=== PATIENT | female | born 1935 | race Caucasian/White ===

== ENCOUNTER → 2017-09-22 18:33 | Outpatient (REF) | payer MEDICARE, OTHER, SELFPAY | LOC: LAB 18:33 | PROVIDERS: PCP Internal Medicine; Visit Provider Specialist | DX: Z22.322 Carrier or suspected carrier of Methicillin resistant Staphylococcus aureus (principal); Z53.9 Procedure and treatment not carried out, unspecified reason ==

== ENCOUNTER → 2017-10-16 13:34 | Outpatient (CLI) | payer MEDICARE, OTHER, SELFPAY | PROVIDERS: PCP Internal Medicine; Visit Provider Internal Medicine | DX: M85.852 Other specified disorders of bone density and structure, left thigh (principal); Z78.0 Asymptomatic menopausal state; E07.9 Disorder of thyroid, unspecified; R29.890 Loss of height | CPT/HCPCS: 77080 ==

== ENCOUNTER 2017-10-30 18:01 | Inpatient (IN) | payer MEDICARE, OTHER, SELFPAY ==
[2017-10-30] VITALS (26 sets, daily range): BP systolic 71–105; BP diastolic 34–76; PULSE 90–105; RESP 11–26; TEMP 36.4–37.2; O2SAT 94–100; BMI 22.9
--- NOTE | 2017-10-30 18:33 | DI.RAD.S_ITS ---
PROCEDURE: XR CHEST 1V INDICATIONS: suspected sepsis TECHNIQUE: One view of the chest was acquired. COMPARISON: None. FINDINGS: Surgical changes and devices: None. Lungs and pleura: No pleural effusions or pneumothorax. Lungs are clear. Mediastinum: Mediastinal contours appear normal except for a small to moderate size hiatal hernia appears to be present behind the heart. Heart size is normal. Bones and chest wall: No suspicious bony lesions. Overlying soft tissues appear unremarkable. IMPRESSION: Small to moderate hiatal hernia behind the heart. Dictated by: Christian Schuler M.D. on 10/30/2017 at 19:07 Approved by: Christian Schuler M.D. on 10/30/2017 at 19:08
[2017-10-30] MEDS: SODIUM CHLORIDE 0.9% 1,000 ML 1000 ML IV (18:34)
--- NOTE | 2017-10-30 18:37 | DI.CT.S_ITS ---
PROCEDURE: CT ABDOMEN PELVIS W CON INDICATIONS: fever with a suspect intraabdominal source TECHNIQUE: After the administration of oral and intravenous contrast, 5 mm thick sections acquired from the diaphragms to the symphysis. 5 mm thick coronal and sagittal reformats were performed. For radiation dose reduction, the following was used: automated exposure control, adjustment of mA and/or kV according to patient size. COMPARISON: [facility], CT, ABDOMEN/PELVIS WITH CONTRAST, 04/09/2017, 17:11. FINDINGS: Image quality: Excellent. ABDOMEN: Lung bases: Lung bases are clear. Heart size is normal. Solid organs: Liver is normal in size and enhancement. Gallbladder extends anteriorly, in the subhepatic space, previously the case. Biliary system is non-dilated. Pancreas enhances normally. Spleen is normal in size and enhancement. No adrenal nodules. Kidneys are normal in size and enhancement, without hydronephrosis. Peritoneum and bowel: Stomach appears to have undergone some form of esophagogastric region operative procedure, and fluid and presumed food material within the gastric lumen disallows accurate assessment of much of the gastric wall. No adjacent free fluid is found, however. The small bowel, and colon loops are normal in caliber and wall thickness. No free fluid or air. Nodes and vessels: No retroperitoneal or mesenteric adenopathy. Aorta and inferior vena cava are normal in caliber. Miscellaneous: No ventral hernias. PELVIS: Genitourinary: Bladder wall thickness is normal. Miscellaneous: No inguinal hernias or adenopathy. Bones: No suspicious bony lesions. No vertebral body compression fractures. IMPRESSION: No source of dizziness, nausea and vomiting is seen. Apparent prior esophagogastric junction region surgical intervention. Fluid and food material present within the gastric lumen disallows accurate visualization of portions of the gastric wall. No adjacent free fluid is seen, however. Throughout the remainder of the abdomen and pelvis no suspicious abnormality is found that would suggest source of current symptomatology. Dictated by: Christian Schuler M.D. on 10/30/2017 at 19:30 Approved by: Christian Schuler M.D. on 10/30/2017 at 19:34
--- NOTE | 2017-10-30 18:41 | DI.CT.S_ITS ---
PROCEDURE: CT HEAD/BRAIN WO CON INDICATIONS: DIZZY/HEADACHE TECHNIQUE: Noncontrast 4.5 mm thick angled axial sections acquired from the foramen magnum to the vertex, with coronal and sagittal reformats. For radiation dose reduction, the following was used: automated exposure control, adjustment of mA and/or kV according to patient size. COMPARISON: None. FINDINGS: Image quality: Excellent. CSF spaces: Basal cisterns are patent. No extra-axial fluid collections. The ventricles are symmetric in size and shape. Brain: No intracranial bleeds or masses. There is cerebral volume loss for age, with resultant ventricular and sulcal prominence. There are periventricular and deep white matter chronic small vessel ischemic changes. There is intracranial internal carotid artery atherosclerosis. Skull and face: Calvarium and visualized facial bones appear intact, without suspicious lesions. Sinuses: Visualized sinuses and mastoids are clear. IMPRESSION: No trauma found, source of current headache and vertigo is not seen. Dictated by: Christian Schuler M.D. on 10/30/2017 at 19:28 Approved by: Christian Schuler M.D. on 10/30/2017 at 19:29
[2017-10-30 18:43] LABS: Basophils Percent Auto 0.6 % (0-2); Eosinophils Percent Auto 1.3 % (2-4); Lymphocytes Percent Auto 15.8 % (25-40); Mean Corpuscular HGB Conc 32.9 % (30-36); Mean Corpuscular Hemoglobin 29.5 PG (26-34); Mean Corpuscular Volume 89.8 fL (80-100); Monocytes Percent Auto 5.8 % (3-14); Neutrophils Absolute Auto 10600 /uL (3000-5900); Neutrophils Percent Auto 76.5 % (50-75); Platelet Count 218 X10^3/uL (150-400); Red Blood Cell Count 2.27 X10^6/uL (4.0-5.2); Red Cell Distribution Width 18.6 % (11.6-14.8); White Blood Cell Count 13.9 X10^3/uL (4.5-11.0)
[2017-10-30 18:46] LABS: Add Manual Diff / Slide Review SLIDE REVIEW; Hematocrit 20.4 % (36-46); Hemoglobin 6.7 g/dL (12.0-16.0)
[2017-10-30 18:51] LABS: INR 1.2 (0.9-1.3); Prothrombin Time 12.5 SECONDS (10.1-12.7)
[2017-10-30 18:54] LABS: PTT Partial Thromboplastin Tim 21 SECONDS (26.4-36.2)
[2017-10-30 18:59] LABS: Lactate (Lactic Acid) 4.5 mmol/L (0.7-2.1)
[2017-10-30 19:10] LABS: Alanine Aminotransferase 29 IU/L (9-52); Albumin 3.3 g/dL (3.5-5.0); Albumin Globulin Ratio 1.2 (1.0-2.8); Alkaline Phosphatase 45 U/L (38-126); Aspartate Aminotransferase 29 IU/L (14-36); Bilirubin Total 0.2 mg/dL (0.2-1.3); Blood Urea Nitrogen 39 mg/dL (7-17); Calcium 8.4 mg/dL (8.4-10.2); Carbon Dioxide 25 mmol/L (22-32); Chloride 99 mmol/L (98-107); Estimated Glomerular Filt Rate > 60.0 mL/min (>60); Globulin 2.7 g/dL (1.7-4.1); Glucose 160 mg/dL (80-110); HEMOLYSIS 25 (0-50); Lipase 101 U/L (23-300); Potassium 3.5 mmol/L (3.4-5.1); Sodium 139 mmol/L (137-145)
[2017-10-30 19:17] LABS: Anisocytosis 1+
[2017-10-30 19:19] LABS: Procalcitonin < 0.05 ng/mL (<0.5)
[2017-10-30 19:22] LABS: Magnesium 1.9 mg/dL (1.6-2.3)
[2017-10-30] MEDS: SODIUM CHLORIDE 0.9% 1,000 ML 150 ML IV (19:26)
[2017-10-30] MEDS: CEFEPIME 2 GM in SODIUM CHLORIDE 0.9% 100 ML 200 ML IV (19:27)
[2017-10-30 19:32] LABS: B Type Natriuretic Peptide < 100.0 (<100)
[2017-10-30 19:37] LABS: Troponin I < 0.012 ng/mL (0.01-0.034)
[2017-10-30 19:49] LABS: Bacteria Urine None Seen
[2017-10-30 19:57] LABS: Appearance Urine UA CLEAR; Bilirubin Urine UA NEGATIVE (NEGATIVE); Color Urine UA YELLOW; Glucose Urine UA NEGATIVE (Normal); Ketones Urine UA NEGATIVE (NEGATIVE); Leukocyte Esterase Urine UA NEGATIVE (NEGATIVE); Nitrite Urine UA Negative (Negative); Occult Blood Urine UA NEGATIVE (Negative); Protein Urine UA NEGATIVE (Negative); Urobilinogen Urine UA 0.2 E.U./dL (0.2); pH Urine UA 6.5 (4.5-8.0)
[2017-10-30] MEDS: VANCOMYCIN 750 MG/150 ML FROZ.PIGGY 150 MG IV (20:02)
[2017-10-30 20:03] LABS: Creatinine Urine Random 61.4 mg/dL; Protein (Total) Urine Random 6 mg/dL (0-12); Protein Creatinine Ratio Urine 0.09 GRAM/24H
[2017-10-30 20:15] LABS: Culture Indicated Urine Cult Not Indicated; Hyaline Casts Urine 1-5/LPF; Mucus Urine 1+ (Negative); RBC Urine 0-1/HPF (0-5/HPF); WBC Urine 1-5/HPF (0-5/HPF)
--- NOTE | 2017-10-30 20:47 | ED_ITS ---
HPI - Dizziness General Chief Complaint: Dizziness Stated Complaint: THROWING UP DIZZY FALL History of Present Illness HPI Narrative: HPI 82-year-old female presents complaining of weakness, malaise, nausea, vomiting of several days' duration. Recent history is notable for a colostomy takedown on 08/24/[address] Austin. Patient had a colostomy in the setting of repair for bleeding diverticulitis. Patient denies cough, cold, fevers, chills, chest pain , shortness breath, dysuria, urinary frequency, headache, neck stiffness, rash. M/S/F/SocHx notable for: please see HPI; remainder reviewed with patient and in chart. ROS: Negative constitutional, eye, cardiovascular, pulmonary, GI, , MSK, skin , neurologic, psychiatric, endocrine unless noted in the HPI. Exam Gen: pleasant, unwell appearing, pale. HEENT: NC, AT, PEERL, EOMI, neck supple, no goiter appreciated. Resp: Clear to auscultation bilaterally, normal work of breathing, no accessory muscle usage. Card: Regular rate and rhythm with no murmurs, rubs, or gallops, extremities warm and well perfused. GI: no focal tenderness palpation, no rebound, no guarding. FOBT positive. : No suprapubic tenderness to palpation. MSK: No visible deformities, strength and tone without visually appreciable deficit. Skin: Normal color, no petechiae, no further visible lesions. Neuro: AOx3, no facial asymmetry, vision and hearing WNL. Psych: Mood and affect appropriate. Labs / Imaging (pertinent): WBC 13.9, Hb 6.7 (baseline 9.9-11.8), PLT 218, PT/INR 1.2, Na 139, K 3.5, Bilirubin 0.2, AST 29, ALT 29, ALT 45, lipase 101, BUN 39, CR 0.6 (BUN/CR 65.0) , Lactate 4.5, troponin <0.012. UA: negative nitrate, negative leukocyte esterase, no bacteria seen. CT head: no acute intracranial abnormality. CT abdomen/pelvis: no source of dizziness, nausea, and vomiting is seen. Apparent prior esophagogastric junction region surgical intervention. Fluid and food material present within the gastric lumen disallows accurate visualization of portions of the gastric wall. No adjacent free fluid seen, however. Throughout the remainder the abdomen pelvis no suspicious abnormalities found that would suggest source of current symptomatology. CXR: small to moderate hiatal hernia behind the heart. EKG: SR at [address]-segment elevations or depressions, T-wave inversions or new LBBB. MDM Previous chart, nursing note, labs, imaging, and vitals reviewed. A: 82-year-old female presents hypotensive, tachycardic, with new anemia, and dark tarry stools with a complaint of N/V/D of several days' duration in the setting of ostomy takedown 08/24/17 there was placed for prior bleeding diverticuliti. Evaluation: concern exists for sepsis versus GI bleed. Upon discovery of anemia , type and screen was performed and the patient was transfused one unit PRBCs. FOBT positive. Suspect a GI source given the dark tarry stools, the apparent esophagogastric junction region surgical intervention noted on imaging and a BUN :Cr of 65.0. Patient was also given IV fluid resuscitation, vancomycin, and cefepime. UA without evidence infection, chest x-ray without evidence of infection. No further focal abnormalities appreciated on exam. CT head was obtained inadvertently, order was placed on long patient, this was canceled prior to imaging, however absence of a active order was not verified by radiology and the patient was imaged, results reviewed, no acute abnormalities. Discussed case with the general surgeon production planner scheduler, Dr. Eric, recommended admission to medicine. Disposition: admitted for further care. Further transfusions as needed deferred to the accepting hospitalist, Dr. Lilly. Impression: suspected upper GI bleed. (please reference below for remainder of encounter information) Critical Care Time Organ system(s): Cardiopulmonary, vascular, QUALITY TECHNICIAN, Renal Intervention: Assessment of the patient, interpretation of studies, communication related to patient care. Time: 30 minutes were spent directly related to patient care exclusive of separately billed procedures Related Data Home Medications Medication Instructions Recorded Confirmed latanoprost 1 drp OPHTH HS #0 12/30/16 08/29/17 escitalopram oxalate 20 mg PO HS #0 08/08/17 08/29/17 sennosides [senna] 8.6 mg PO QDAY #0 08/08/17 08/29/17 lorazepam [Ativan] 1 mg PO BIDP PRN 08/29/17 08/29/17 Previous Rx's Medication Instructions Recorded gabapentin 200 mg PO BID #10 cap 08/29/17 hydrocodone-acetaminophen 1 - 2 tab PO Q6HP PRN #14 tab MDD 6 08/29/17 levothyroxine [Synthroid] 50 mcg PO DAILY #30 tab 08/29/17 walker #1 each 08/29/17 Allergies Allergy/AdvReac Type Severity Reaction Status Date / Time penicillin V [PENICILLIN V] Allergy Severe rash Verified 10/30/17 18:34 latex [LATEX] Allergy Mild rash Verified 10/30/17 18:34 [facility] Medical History Hypothyroidism (Acute) Glaucoma (Acute) Surgical History Colostomy status (Acute) Exam Initial Vital Signs Initial Vital Signs: Vital Signs Temperature 97.5 F L 10/30/17 18:06 Pulse Rate 105 H 10/30/17 18:06 Respiratory Rate 22 10/30/17 18:06 Pulse Oximetry 100 10/30/17 18:06 Course Orders Ordered: ED Orders 10/30/17 18:25 B Type Natriuretic Peptide Stat Complete Blood Count AUTO DIFF Stat Comprehensive Metabolic Panel Stat Free T4 Free Thyroxine Stat Lactate (Lactic Acid) Stat Lipase Stat Magnesium Stat Partial Thromboplastin Time Stat Procalcitonin Stat Prothrombin Time INR Stat Thyroid Stimulating Hormone Stat Troponin I Stat 10/30/17 18:33 XR chest 1V Stat 10/30/17 18:37 CT abdomen pelvis w con Stat 10/30/17 18:41 CT head/brain wo con Stat 10/30/17 18:55 Blood Culture Stat Packed Cells Stat Type and Screen Stat 10/30/17 19:35 Urinalysis and Microscopic Stat 10/30/17 19:50 Protein Creatinine Ratio Urine Stat 10/30/17 20:43 Consult to General Surgery Routine Consult to Physician Routine Sodium Chloride (Normal Saline 0.9%) 1,000 mls @ 125 mls/hr IV CONT SYDNEE Discontinued Medications Sodium Chloride (Normal Saline 0.9%) 1,000 mls @ 1,000 mls/hr IV BOLUS ONE Stop: 10/30/17 19:31 Last Infusion: 10/30/17 19:58 Dose: 0 mls/hr Admin: 10/30/17 18:34 Dose: 1,000 mls/hr Cefepime HCl 2 gm/ Sodium (Chloride) 100 mls @ 200 mls/hr IV NOW ONE Stop: 10/30/17 18:38 Last Infusion: 10/30/17 20:01 Dose: 0 mls/hr Admin: 10/30/17 19:27 Dose: 200 mls/hr Sodium Chloride (Normal Saline 0.9%) 1,000 mls @ 1,000 mls/hr IV BOLUS ONE Stop: 10/30/17 19:36 Last Admin: 10/30/17 19:26 Dose: 150 mls/hr Vancomycin HCl/Dextrose (Vancomycin) 750 mg in 150 mls @ 150 mls/hr 15 mg/kg ( 750 mg) IV NOW ONE Stop: 10/30/17 19:36 Last Admin: 10/30/17 20:02 Dose: 150 mls/hr Magnesium Sulfate (Magnesium Sulfate) 2 gm in 50 mls @ 50 mls/hr IV NOW ONE Stop: 10/30/17 19:40 Last Admin: 10/30/17 19:24 Dose: Magnesium Sulfate (Magnesium Sulfate) 4 gm in 100 mls @ 300 mls/hr IV NOW ONE Stop: 10/30/17 19:08 Last Admin: 10/30/17 19:24 Dose: Magnesium Sulfate (Magnesium Sulfate) 2 gm in 50 mls @ 150 mls/hr IV NOW ONE Stop: 10/30/17 19:10 Last Admin: 10/30/17 19:24 Dose: Ketorolac Tromethamine (Toradol) 15 mg IV NOW ONE Stop: 10/30/17 18:38 Last Admin: 10/30/17 19:42 Dose: Labetalol HCl (Trandate) 10 mg IV NOW ONE Stop: 10/30/17 18:47 Last Admin: 10/30/17 19:24 Dose: Vital Signs - 8 hr 10/30/17 18:06 10/30/17 18:15 10/30/17 18:25 Temperature 97.5 F L Pulse Rate 105 H 103 H 97 H Respiratory Rate 22 20 26 H Blood Pressure [Right Arm] 88/76 L 86/36 L Pulse Oximetry 100 100 94 10/30/17 18:30 10/30/17 18:35 10/30/17 18:40 Temperature Pulse Rate 93 H 91 H 104 H Respiratory Rate 22 21 22 Blood Pressure [Right Arm] 100/34 L 71/36 L Pulse Oximetry 100 99 99 10/30/17 18:43 10/30/17 18:50 10/30/17 18:55 Temperature 97.5 F L Pulse Rate 105 H 100 H 90 Respiratory Rate 22 22 18 Blood Pressure [Right Arm] 80/41 L 86/47 L Pulse Oximetry 100 100 100 10/30/17 19:10 10/30/17 19:31 10/30/17 19:45 Temperature Pulse Rate 94 H 94 H 104 H Respiratory Rate 22 22 22 Blood Pressure [Right Arm] 92/57 L 93/41 L 87/42 L Pulse Oximetry 98 98 98 10/30/17 20:03 Temperature 97.9 F Pulse Rate 98 H Respiratory Rate 20 Blood Pressure [Right Arm] 92/48 L Pulse Oximetry 98 MDM - Dizziness Lab Data Result diagrams: 10/30/17 18:25 10/30/17 18:25 Lab Results 10/30/17 10/30/17 10/30/17 Range/Units 18:25 18:25 18:25 WBC 13.9 H (4.5-11.0) X10^3/uL RBC 2.27 L (4.0-5.2) X10^6/uL Hgb 6.7 L* (12.0-16.0) g/dL Hct 20.4 L* (36-46) % MCV 89.8 (80-100) fL MCH 29.5 (26-34) PG MCHC 32.9 (30-36) % RDW 18.6 H (11.6-14.8) % Plt Count 218 (150-400) X10^3/uL Neut % (Auto) 76.5 H (50-75) % Lymph % (Auto) 15.8 L (25-40) % [place] % (Auto) 5.8 (3-14) % Eos % (Auto) 1.3 L (2-4) % Baso % (Auto) 0.6 (0-2) % Neut # (Auto) 09695 H (9239-7781) /uL RBC Morphology Not Reportable Anisocytosis 1+ H PT 12.5 (10.1-12.7) SECONDS INR 1.2 (0.9-1.3) APTT 21 L (26.4-36.2) SECONDS Sodium (137-145) mmol/L Potassium (3.4-5.1) mmol/L Chloride (98-107) mmol/L Carbon Dioxide (22-32) mmol/L BUN (7-17) mg/dL Creatinine (0.52-1.04) mg/dL Estimated GFR (>60) mL/min BUN/Creatinine Ratio (6-22) Glucose (80-110) mg/dL Lactate (0.7-2.1) mmol/L Calcium (8.4-10.2) mg/dL Magnesium (1.6-2.3) mg/dL Total Bilirubin (0.2-1.3) mg/dL AST (14-36) IU/L ALT (9-52) IU/L Alkaline Phosphatase (38-126) U/L Troponin I (0.01-0.034) ng/mL B-Natriuretic Peptide (<100) Total Protein (6.3-8.2) g/dL Albumin (3.5-5.0) g/dL Globulin (1.7-4.1) g/dL Albumin/Globulin Ratio (1.0-2.8) Lipase (23-300) U/L Procalcitonin < 0.05 (<0.5) ng/mL Specimen Hemolysis Urine Color Urine Appearance Urine pH (4.5-8.0) Ur Specific [place] (1.000-1.035) Urine Protein (Negative) Urine Glucose (UA) (Normal) g/dL Urine Ketones (NEGATIVE) Urine Occult Blood (Negative) Urine Nitrate (Negative) Urine Bilirubin (NEGATIVE) Urine Urobilinogen (0.2) E.U./dL Ur Leukocyte Esterase (NEGATIVE) Urine RBC (0-5/HPF) Urine WBC (0-5/HPF) Urine Bacteria (None) Hyaline Casts (None) Urine Mucus (Negative) Ur Culture Indicated? Micro UA Comment U Random Total Protein (0-12) mg/dL Urine Creatinine mg/dL Protein/Creatinin Ratio GRAM/24H Blood Type Antibody Screen Crossmatch 10/30/17 10/30/17 10/30/17 Range/Units 18:25 18:25 18:25 WBC Cancelled (4.5-11.0) X10^3/uL RBC Cancelled (4.0-5.2) X10^6/uL Hgb Cancelled (12.0-16.0) g/dL Hct Cancelled (36-46) % MCV Cancelled (80-100) fL MCH Cancelled (26-34) PG MCHC Cancelled (30-36) % RDW Cancelled (11.6-14.8) % Plt Count Cancelled (150-400) X10^3/uL Neut % (Auto) Cancelled (50-75) % Lymph % (Auto) Cancelled (25-40) % [place] % (Auto) Cancelled (3-14) % Eos % (Auto) Cancelled (2-4) % Baso % (Auto) Cancelled (0-2) % Neut # (Auto) Cancelled (0777-0887) /uL RBC Morphology Anisocytosis PT (10.1-12.7) SECONDS INR (0.9-1.3) APTT (26.4-36.2) SECONDS Sodium 139 (137-145) mmol/L Potassium 3.5 (3.4-5.1) mmol/L Chloride 99 (98-107) mmol/L Carbon Dioxide 25 (22-32) mmol/L BUN 39 H (7-17) mg/dL Creatinine 0.60 (0.52-1.04) mg/dL Estimated GFR > 60.0 (>60) mL/min BUN/Creatinine Ratio 65.0 H (6-22) Glucose 160 H (80-110) mg/dL Lactate 4.5 H (0.7-2.1) mmol/L Calcium 8.4 (8.4-10.2) mg/dL Magnesium (1.6-2.3) mg/dL Total Bilirubin 0.2 (0.2-1.3) mg/dL AST 29 (14-36) IU/L ALT 29 (9-52) IU/L Alkaline Phosphatase 45 (38-126) U/L Troponin I (0.01-0.034) ng/mL B-Natriuretic Peptide < 100.0 (<100) Total Protein 6.0 L (6.3-8.2) g/dL Albumin 3.3 L (3.5-5.0) g/dL Globulin 2.7 (1.7-4.1) g/dL Albumin/Globulin Ratio 1.2 (1.0-2.8) Lipase 101 (23-300) U/L Procalcitonin (<0.5) ng/mL Specimen Hemolysis Urine Color Urine Appearance Urine pH (4.5-8.0) Ur Specific [place] (1.000-1.035) Urine Protein (Negative) Urine Glucose (UA) (Normal) g/dL Urine Ketones (NEGATIVE) Urine Occult Blood (Negative) Urine Nitrate (Negative) Urine Bilirubin (NEGATIVE) Urine Urobilinogen (0.2) E.U./dL Ur Leukocyte Esterase (NEGATIVE) Urine RBC (0-5/HPF) Urine WBC (0-5/HPF) Urine Bacteria (None) Hyaline Casts (None) Urine Mucus (Negative) Ur Culture Indicated? Micro UA Comment U Random Total Protein (0-12) mg/dL Urine Creatinine mg/dL Protein/Creatinin Ratio GRAM/24H Blood Type Antibody Screen Crossmatch 10/30/17 10/30/17 10/30/17 Range/Units 18:25 18:55 19:35 WBC (4.5-11.0) X10^3/uL RBC (4.0-5.2) X10^6/uL Hgb (12.0-16.0) g/dL Hct (36-46) % MCV (80-100) fL MCH (26-34) PG MCHC (30-36) % RDW (11.6-14.8) % Plt Count (150-400) X10^3/uL Neut % (Auto) (50-75) % Lymph % (Auto) (25-40) % [place] % (Auto) (3-14) % Eos % (Auto) (2-4) % Baso % (Auto) (0-2) % Neut # (Auto) (9990-3092) /uL RBC Morphology Anisocytosis PT (10.1-12.7) SECONDS INR (0.9-1.3) APTT (26.4-36.2) SECONDS Sodium Cancelled (137-145) mmol/L Potassium Cancelled (3.4-5.1) mmol/L Chloride Cancelled (98-107) mmol/L Carbon Dioxide Cancelled (22-32) mmol/L BUN Cancelled (7-17) mg/dL Creatinine Cancelled (0.52-1.04) mg/dL Estimated GFR Cancelled (>60) mL/min BUN/Creatinine Ratio Cancelled (6-22) Glucose Cancelled (80-110) mg/dL Lactate (0.7-2.1) mmol/L Calcium Cancelled (8.4-10.2) mg/dL Magnesium 1.9 (1.6-2.3) mg/dL Total Bilirubin Cancelled (0.2-1.3) mg/dL AST Cancelled (14-36) IU/L ALT Cancelled (9-52) IU/L Alkaline Phosphatase Cancelled (38-126) U/L Troponin I < 0.012 (0.01-0.034) ng/mL B-Natriuretic Peptide (<100) Total Protein Cancelled (6.3-8.2) g/dL Albumin Cancelled (3.5-5.0) g/dL Globulin Cancelled (1.7-4.1) g/dL Albumin/Globulin Ratio Cancelled (1.0-2.8) Lipase Cancelled (23-300) U/L Procalcitonin (<0.5) ng/mL Specimen Hemolysis Cancelled Urine Color Yellow Urine Appearance Clear Urine pH 6.5 (4.5-8.0) Ur Specific [place] 1.010 (1.000-1.035) Urine Protein Negative (Negative) Urine Glucose (UA) Negative (Normal) g/dL Urine Ketones Negative (NEGATIVE) Urine Occult Blood Negative (Negative) Urine Nitrate Negative (Negative) Urine Bilirubin Negative (NEGATIVE) Urine Urobilinogen 0.2 (0.2) E.U./dL Ur Leukocyte Esterase Negative (NEGATIVE) Urine RBC 0-1/hpf (0-5/HPF) Urine WBC 1-5/hpf (0-5/HPF) Urine Bacteria None seen (None) Hyaline Casts 1-5/lpf (None) Urine Mucus 1+ H (Negative) Ur Culture Indicated? Cult not indicated Micro UA Comment Not Reportable U Random Total Protein (0-12) mg/dL Urine Creatinine mg/dL Protein/Creatinin Ratio GRAM/24H Blood Type A Positive Antibody Screen Negative Crossmatch See Detail 10/30/17 Range/Units 19:50 WBC (4.5-11.0) X10^3/uL RBC (4.0-5.2) X10^6/uL Hgb (12.0-16.0) g/dL Hct (36-46) % MCV (80-100) fL MCH (26-34) PG MCHC (30-36) % RDW (11.6-14.8) % Plt Count (150-400) X10^3/uL Neut % (Auto) (50-75) % Lymph % (Auto) (25-40) % [place] % (Auto) (3-14) % Eos % (Auto) (2-4) % Baso % (Auto) (0-2) % Neut # (Auto) (7592-8638) /uL RBC Morphology Anisocytosis PT (10.1-12.7) SECONDS INR (0.9-1.3) APTT (26.4-36.2) SECONDS Sodium (137-145) mmol/L Potassium (3.4-5.1) mmol/L Chloride (98-107) mmol/L Carbon Dioxide (22-32) mmol/L BUN (7-17) mg/dL Creatinine (0.52-1.04) mg/dL Estimated GFR (>60) mL/min BUN/Creatinine Ratio (6-22) Glucose (80-110) mg/dL Lactate (0.7-2.1) mmol/L Calcium (8.4-10.2) mg/dL Magnesium (1.6-2.3) mg/dL Total Bilirubin (0.2-1.3) mg/dL AST (14-36) IU/L ALT (9-52) IU/L Alkaline Phosphatase (38-126) U/L Troponin I (0.01-0.034) ng/mL B-Natriuretic Peptide (<100) Total Protein (6.3-8.2) g/dL Albumin (3.5-5.0) g/dL Globulin (1.7-4.1) g/dL Albumin/Globulin Ratio (1.0-2.8) Lipase (23-300) U/L Procalcitonin (<0.5) ng/mL Specimen Hemolysis Urine Color Urine Appearance Urine pH (4.5-8.0) Ur Specific [place] (1.000-1.035) Urine Protein (Negative) Urine Glucose (UA) (Normal) g/dL Urine Ketones (NEGATIVE) Urine Occult Blood (Negative) Urine Nitrate (Negative) Urine Bilirubin (NEGATIVE) Urine Urobilinogen (0.2) E.U./dL Ur Leukocyte Esterase (NEGATIVE) Urine RBC (0-5/HPF) Urine WBC (0-5/HPF) Urine Bacteria (None) Hyaline Casts (None) Urine Mucus (Negative) Ur Culture Indicated? Micro UA Comment U Random Total Protein 6 (0-12) mg/dL Urine Creatinine 61.4 mg/dL Protein/Creatinin Ratio 0.09 GRAM/24H Blood Type Antibody Screen Crossmatch Discharge Plan Departure Patient Disposition: Admitted As Inpatient Clinical Impression: Acute upper GI bleed
[2017-10-30 21:08] LABS: Free T4, Direct Thyroxine 0.94 ng/dL (0.78-2.19)
--- NOTE | 2017-10-30 22:34 | PC.NURSE ---
Admit Note 2230 - Patient admitted to room 101. Alert and oriented with pleasant affect. Transferred to bed using slider board. Denies pain at this time. Able to move all extremities. Oriented to room and call light, call light within reach.
[2017-10-30 22:38] LABS: Reflexed Lactate in 2 Hours Y
[2017-10-30] MEDS: SODIUM CHLORIDE 0.9% 1,000 ML 125 ML IV (22:49)
[2017-10-30 23:05] LABS: Lactate 2HR (Lactic Acid Rflx) 1.2 mmol/L (0.7-2.1)
[2017-10-31] VITALS (26 sets, daily range): BP systolic 82–142; BP diastolic 40–77; PULSE 79–95; RESP 11–24; TEMP 36.1–38.4; O2SAT 92–99; BMI 23.1
--- NOTE | 2017-10-31 | PATH_ITS ---
[facility] Accession Number: [id number] . 01 Material submitted: . ANTRAL . 02 Diagnosis: Stomach, Antrum, Biopsy: Antral mucosa with mild chronic gastritis. Negative for Helicobacter organisms by immunohistochemistry. Negative for intestinal metaplasia. Negative for dysplasia and malignancy. . I/11/06/2017 . 02 Electronically signed: . Ximena Hughes MD, Pathologist NPI- [id number] . 01 Gross description: . ANTRAL: Received in formalin is 1 fragment(s) of kim, soft tissue measuring 0.2 x 0.2 x 0.1 cm submitted entirely in 1 cassette(s) /TRC /TRC . 02 Microscopic: . An immunohistochemical stain was performed to evaluate for Helicobacter organisms and is negative. A control stain showed appropriate reactivity. . * This test was developed and its performance characteristics determined by [facility]. It has not been cleared or approved by the U.S. Food and Drug Administration. The FDA has determined that such clearance or approval is not necessary. This test is used for clinical purposes. It should not be regarded as investigational or for research. . 02 Pathologist provided ICD-10: R10.13 . 02 CPT . 300089, N40447 Performed at: 01 [facility] [address], [place], [place] [id number] MD Filiberto Bejarano MD Phone: [phone] Performed at: 02 [facility] [place] [address] [place], [place] [id number] MD Brian Smith MD Phone: [phone]
[2017-10-31] MEDS: ONDANSETRON 4 MG/2 ML INJ IV ×2 (00:33→08:28)
[2017-10-31 05:33] LABS: Add Manual Diff / Slide Review NO; Basophils Percent Auto 1.2 % (0-2); Eosinophils Percent Auto 0.5 % (2-4); Lymphocytes Percent Auto 20.8 % (25-40); Mean Corpuscular HGB Conc 33.4 % (30-36); Mean Corpuscular Hemoglobin 29.9 PG (26-34); Mean Corpuscular Volume 89.5 fL (80-100); Monocytes Percent Auto 10.5 % (3-14); Neutrophils Absolute Auto 3800 /uL (3000-5900); Platelet Count 137 X10^3/uL (150-400); Red Blood Cell Count 2.34 X10^6/uL (4.0-5.2); Red Cell Distribution Width 17.3 % (11.6-14.8); White Blood Cell Count 5.7 X10^3/uL (4.5-11.0)
[2017-10-31 05:53] LABS: Blood Urea Nitrogen 33 mg/dL (7-17); Calcium 7.7 mg/dL (8.4-10.2); Carbon Dioxide 26 mmol/L (22-32); Chloride 110 mmol/L (98-107); Estimated Glomerular Filt Rate > 60.0 mL/min (>60); Glucose 100 mg/dL (80-110); HEMOLYSIS < 15 (0-50); Magnesium 1.9 mg/dL (1.6-2.3); Potassium 3.6 mmol/L (3.4-5.1); Sodium 142 mmol/L (137-145)
[2017-10-31 06:03] LABS: Troponin I 0.073 ng/mL (0.01-0.034)
--- NOTE | 2017-10-31 06:27 | PC.NURSE ---
Patient dozed intermittently, IV Zofran given x1 for mild nausea, no emesis, no stools overnight or s/s bleeding. SR, BP low but stable, see vital trends. IV NS @ 125ml/hr. H/H this am 7.0/21.0.
--- NOTE | 2017-10-31 09:04 | CM.DANOTE ---
DCP: Case received, EMR reviewed and met with patient. Introduced self and role. DCP template completed with information currently available. Pt is an 82 year old female who admitted yesterday with symptoms of dizziness, malaise, vomiting and weakness. PCP: Dr. Mora. Payer confirmed: Medicare, and [employer] Insurance. Patient carries a diagnosis of GI bleed, and will be receiving blood transfusion, as well as a surgical consult. P: Check in tomorrow and verify with the hospitalist team to discuss above, and to assist with DC needs that may arise. mildred Jaramillo, JANIA/shelter case manager
[2017-10-31] MEDS: HYDROMORPHONE 0.5 MG INJ IV ×3 (10:37→23:55)
--- NOTE | 2017-10-31 10:42 | P.HP_ITS ---
History of Present Illness Date Patient Seen: 10/31/17 Time Patient Seen: 09:40 Chief complaint: THROWING UP DIZZY FALL Narrative: 82-year-old woman under the primary care of Dr. Kennedi Mora presented overnight with weakness, malaise, nausea and vomiting for several days. She felt lightheadedness and fell last night, without injury, and presented to the emergency department for evaluation where she was found to have a hematocrit of 20%. Notably, the patient had a colostomy take down on August 24, [address] Austin after presentation in December 2016 with perforated diverticulitis, undergoing sigmoid colectomy and colostomy placement at that time. In March 2017 she developed a small-bowel obstruction few days after an unremarkable colonoscopy, and underwent exploratory laparotomy with lysis of adhesions. She has done fairly well since then. In the past few days she describes dark tar to black stools. No hematemesis reported. She took an Aleve tablet 2 weeks ago for back pain, but otherwise denies NSAID or aspirin use. She has severe lumbar spinal stenosis on chronic hydrocodone and plans neurosurgical consultation in the near future. Patient History Medical History Hypothyroidism (Acute) Glaucoma (Acute) Anxiety (Acute) Colon polyp (Acute) History of open sigmoidectomy (Acute) Insomnia (Acute) Lumbar spinal stenosis (Acute) Surgical History Colostomy status (Acute) History of repair of hiatal hernia (Acute) S/P exploratory laparotomy (Acute) Family & Social History Family History: Reviewed 10/31/17 by Terrell Lilly MD Social History: household members none Prior Living Arrangements House Safety & Behavioral: Feels Safe in Current Yes Environment Been Physically Hurt or No Threatened By a Person Suicidal Ideation Description None Suicide Plan Description No Plan Tobacco & Substance use: Smoking Status Never smoker alcohol intake current alcohol intake frequency holiday/special occasion Substance Use Type does not use Meds Home Medications Medication Instructions Recorded Confirmed Type latanoprost 1 drp OPHTH HS #0 12/30/16 10/30/17 History escitalopram oxalate 20 mg PO HS #0 08/08/17 10/30/17 History sennosides [senna] 8.6 mg PO QDAY #0 08/08/17 10/30/17 History gabapentin 200 mg PO BID #10 cap 08/29/17 10/30/17 Rx hydrocodone-acetaminophen 1 - 2 tab PO Q6HP PRN #14 tab MDD 6 08/29/17 10/30/17 Rx levothyroxine [Synthroid] 50 mcg PO DAILY #30 tab 08/29/17 10/30/17 Rx walker #1 each 08/29/17 10/30/17 Rx Allergies Allergy/AdvReac Type Severity Reaction Status Date / Time penicillin V [PENICILLIN V] Allergy Severe rash Verified 10/30/17 18:34 latex [LATEX] Allergy Mild rash Verified 10/30/17 18:34 Review of Systems Review of Systems All systems reviewed & are unremarkable except as noted in HPI and below Exam Vital Signs (past 8 hours): - 10/31/17 03:00 10/31/17 04:31 10/31/17 05:00 Temperature Pulse Rate 84 88 79 Respiratory Rate 24 20 15 Blood Pressure 90/48 L 82/40 L 104/58 L Pulse Oximetry 96 97 10/31/17 07:43 10/31/17 08:33 10/31/17 08:46 Temperature 100.2 F H 100.2 F H 100.2 F H Pulse Rate 82 83 83 Respiratory Rate 18 11 L 11 L Blood Pressure 100/50 L 105/57 L 105/57 L Pulse Oximetry 96 95 10/31/17 08:49 Temperature 100.6 F H Pulse Rate 84 Respiratory Rate 16 Blood Pressure 108/54 L Pulse Oximetry Oxygen Delivery Method Room Air Narrative Exam Narrative: General: Alert, appropriate healthy appearing [facility] in female, reports moderate back pain and appears uncomfortable HEENT: Pupils equal round reactive, extraocular movements intact, mucous membranes pink and moist Neck: Supple Lungs: Clear to auscultation Cardiac: Regular rate and rhythm without appreciable murmur Abdomen: Soft, mild epigastric tenderness, no guarding, rebound or rigidity healed midline scar and left abdomen colostomy site Extremities: Without edema, no calf tenderness or swelling Dermatologic: No rash or skin lesions Neurologic: Alert, oriented, no focal findings evident Objective Imaging CT scan - head: Radiologist's impression: No trauma found, source of current headache and vertigo is not seen. CT scan - abdomen: Radiologist's impression: No source of dizziness, nausea and vomiting is seen. Apparent prior esophagogastric junction region surgical intervention. Fluid and food material present within the gastric lumen disallows accurate visualization of portions of the gastric wall. No adjacent free fluid is seen, however. Throughout the remainder of the abdomen and pelvis no suspicious abnormality is found that would suggest source of current symptomatology. Chest x-ray: Radiologist's impression: Small to moderate hiatal hernia behind the heart. Labs Result Diagrams: 10/31/17 04:46 10/31/17 04:46 Labs: Laboratory Results - last 24 hr 10/30/17 10/30/17 10/30/17 18:25 18:25 18:25 WBC 13.9 H RBC 2.27 L Hgb 6.7 L* Hct 20.4 L* MCV 89.8 MCH 29.5 MCHC 32.9 RDW 18.6 H Plt Count 218 Neut % (Auto) 76.5 H Lymph % (Auto) 15.8 L [place] % (Auto) 5.8 Eos % (Auto) 1.3 L Baso % (Auto) 0.6 Neut # (Auto) 83118 H RBC Morphology Not Reportable Anisocytosis 1+ H PT 12.5 INR 1.2 APTT 21 L Sodium Potassium Chloride Carbon Dioxide BUN Creatinine Estimated GFR BUN/Creatinine Ratio Glucose Lactate Calcium Magnesium Total Bilirubin AST ALT Alkaline Phosphatase Troponin I B-Natriuretic Peptide Total Protein Albumin Globulin Albumin/Globulin Ratio Lipase Procalcitonin < 0.05 TSH Free T4 Specimen Hemolysis Urine Color Urine Appearance Urine pH Ur Specific [place] Urine Protein Urine Glucose (UA) Urine Ketones Urine Occult Blood Urine Nitrate Urine Bilirubin Urine Urobilinogen Ur Leukocyte Esterase Urine RBC Urine WBC Urine Bacteria Hyaline Casts Urine Mucus Ur Culture Indicated? Micro UA Comment U Random Total Protein Urine Creatinine Protein/Creatinin Ratio Nasal Screen MRSA (PCR) Blood Type Antibody Screen Crossmatch 10/30/17 10/30/17 10/30/17 18:25 18:25 18:25 WBC Cancelled RBC Cancelled Hgb Cancelled Hct Cancelled MCV Cancelled MCH Cancelled MCHC Cancelled RDW Cancelled Plt Count Cancelled Neut % (Auto) Cancelled Lymph % (Auto) Cancelled [place] % (Auto) Cancelled Eos % (Auto) Cancelled Baso % (Auto) Cancelled Neut # (Auto) Cancelled RBC Morphology Anisocytosis PT INR APTT Sodium 139 Potassium 3.5 Chloride 99 Carbon Dioxide 25 BUN 39 H Creatinine 0.60 Estimated GFR > 60.0 BUN/Creatinine Ratio 65.0 H Glucose 160 H Lactate 4.5 H Calcium 8.4 Magnesium Total Bilirubin 0.2 AST 29 ALT 29 Alkaline Phosphatase 45 Troponin I B-Natriuretic Peptide < 100.0 Total Protein 6.0 L Albumin 3.3 L Globulin 2.7 Albumin/Globulin Ratio 1.2 Lipase 101 Procalcitonin TSH Free T4 Specimen Hemolysis Urine Color Urine Appearance Urine pH Ur Specific [place] Urine Protein Urine Glucose (UA) Urine Ketones Urine Occult Blood Urine Nitrate Urine Bilirubin Urine Urobilinogen Ur Leukocyte Esterase Urine RBC Urine WBC Urine Bacteria Hyaline Casts Urine Mucus Ur Culture Indicated? Micro UA Comment U Random Total Protein Urine Creatinine Protein/Creatinin Ratio Nasal Screen MRSA (PCR) Blood Type Antibody Screen Crossmatch 10/30/17 10/30/17 10/30/17 18:25 18:25 18:55 WBC RBC Hgb Hct MCV MCH MCHC RDW Plt Count Neut % (Auto) Lymph % (Auto) [place] % (Auto) Eos % (Auto) Baso % (Auto) Neut # (Auto) RBC Morphology Anisocytosis PT INR APTT Sodium Cancelled Potassium Cancelled Chloride Cancelled Carbon Dioxide Cancelled BUN Cancelled Creatinine Cancelled Estimated GFR Cancelled BUN/Creatinine Ratio Cancelled Glucose Cancelled Lactate Calcium Cancelled Magnesium 1.9 Total Bilirubin Cancelled AST Cancelled ALT Cancelled Alkaline Phosphatase Cancelled Troponin I < 0.012 B-Natriuretic Peptide Total Protein Cancelled Albumin Cancelled Globulin Cancelled Albumin/Globulin Ratio Cancelled Lipase Cancelled Procalcitonin TSH 10.70 H Free T4 0.94 Specimen Hemolysis Cancelled Urine Color Urine Appearance Urine pH Ur Specific [place] Urine Protein Urine Glucose (UA) Urine Ketones Urine Occult Blood Urine Nitrate Urine Bilirubin Urine Urobilinogen Ur Leukocyte Esterase Urine RBC Urine WBC Urine Bacteria Hyaline Casts Urine Mucus Ur Culture Indicated? Micro UA Comment U Random Total Protein Urine Creatinine Protein/Creatinin Ratio Nasal Screen MRSA (PCR) Blood Type A Positive Antibody Screen Negative Crossmatch See Detail 10/30/17 10/30/17 10/30/17 19:35 19:50 22:40 WBC RBC Hgb Hct MCV MCH MCHC RDW Plt Count Neut % (Auto) Lymph % (Auto) [place] % (Auto) Eos % (Auto) Baso % (Auto) Neut # (Auto) RBC Morphology Anisocytosis PT INR APTT Sodium Potassium Chloride Carbon Dioxide BUN Creatinine Estimated GFR BUN/Creatinine Ratio Glucose Lactate Calcium Magnesium Total Bilirubin AST ALT Alkaline Phosphatase Troponin I B-Natriuretic Peptide Total Protein Albumin Globulin Albumin/Globulin Ratio Lipase Procalcitonin TSH Free T4 Specimen Hemolysis Urine Color Yellow Urine Appearance Clear Urine pH 6.5 Ur Specific [place] 1.010 Urine Protein Negative Urine Glucose (UA) Negative Urine Ketones Negative Urine Occult Blood Negative Urine Nitrate Negative Urine Bilirubin Negative Urine Urobilinogen 0.2 Ur Leukocyte Esterase Negative Urine RBC 0-1/hpf Urine WBC 1-5/hpf Urine Bacteria None seen Hyaline Casts 1-5/lpf Urine Mucus 1+ H Ur Culture Indicated? Cult not indicated Micro UA Comment Not Reportable U Random Total Protein 6 Urine Creatinine 61.4 Protein/Creatinin Ratio 0.09 Nasal Screen MRSA (PCR) Negative for mrsa Blood Type Antibody Screen Crossmatch 10/30/17 10/31/17 10/31/17 22:44 04:46 04:46 WBC 5.7 D RBC 2.34 L Hgb 7.0 L Hct 21.0 L MCV 89.5 MCH 29.9 MCHC 33.4 RDW 17.3 H Plt Count 137 L Neut % (Auto) 67.0 Lymph % (Auto) 20.8 L [place] % (Auto) 10.5 Eos % (Auto) 0.5 L Baso % (Auto) 1.2 Neut # (Auto) 3800 RBC Morphology Anisocytosis PT INR APTT Sodium 142 Potassium 3.6 Chloride 110 H Carbon Dioxide 26 BUN 33 H Creatinine 0.50 L Estimated GFR > 60.0 BUN/Creatinine Ratio 66.0 H Glucose 100 Lactate 1.2 Calcium 7.7 L Magnesium 1.9 Total Bilirubin AST ALT Alkaline Phosphatase Troponin I 0.073 H B-Natriuretic Peptide Total Protein Albumin Globulin Albumin/Globulin Ratio Lipase Procalcitonin TSH Free T4 Specimen Hemolysis Urine Color Urine Appearance Urine pH Ur Specific [place] Urine Protein Urine Glucose (UA) Urine Ketones Urine Occult Blood Urine Nitrate Urine Bilirubin Urine Urobilinogen Ur Leukocyte Esterase Urine RBC Urine WBC Urine Bacteria Hyaline Casts Urine Mucus Ur Culture Indicated? Micro UA Comment U Random Total Protein Urine Creatinine Protein/Creatinin Ratio Nasal Screen MRSA (PCR) Blood Type Antibody Screen Crossmatch Assessment & Plan Plan: Assessment/Plan Narrative: 1. Acute gastrointestinal bleeding, suspect upper source, presenting with melena, consider lower source given recent colon surgery. She is hemodynamically stable, though likely has ongoing active bleeding. Transfuse 3 units of packed red blood cells anticipating upper endoscopy per surgery this afternoon. Treat with IV proton pump inhibitor twice daily pending evaluation. 2. Acute blood loss anemia due to 1. 3. Lumbar spinal stenosis with chronic low back pain and opioid habituation. Continue pain control intravenously until able to resume routine oral medications. 4. Hypothyroidism. Resume she levothyroxine following procedures. 5. Depression. Resume routine medication after procedure. 6. DVT prophylaxis: Place SCDs. Avoid anticoagulants given active bleeding. 7. Code status: Full code. Reviewed with patient on admission. 8. Disposition: The patient is admitted inpatient status as she will likely require at least 2 midnights of inpatient level care. She normally lives alone , with her son living in [facility] notified by the patient of this admission. Quality VTE Deep Vein Thrombosis/Pulmonary Embolism Present on Admission: No
[2017-10-31 12:53] LABS: Hematocrit 29.5 % (36-46)
[2017-10-31] MEDS: PANTOPRAZOLE 40 MG VIAL IV ×2 (13:25→20:25)
[2017-10-31] MEDS: SODIUM CHLORIDE 0.9% 1,000 ML 125 ML IV (13:26)
--- NOTE | 2017-10-31 15:12 | PC.NURSE ---
PT TO PRE-OP HOLDING AREA AT 1500 BY OR STAFF
--- NOTE | 2017-10-31 15:41 | PM.CN ---
History of Present Illness Date Patient Seen: 10/31/17 Time Patient Seen: 15:41 Chief complaint: THROWING UP DIZZY FALL Reason for consult: GI hemorrhage Requesting provider: Terrell Lilly Narrative: Cordelia is a eric 82-year-old lady who is well known to our practice from prior visits. She presented to the emergency room yesterday afternoon complaining of not feeling well. She had also had some nausea and vomiting and generalized malaise and lightheadedness. She was found to have a hemoglobin of 6.7 and was admitted to the medicine service for transfusion and rehydration. Have been consulted regarding EGD for likely upper GI hemorrhage. She had a normal colonoscopy earlier this year prior to ostomy reversal. [facility] Medical History Hypothyroidism (Acute) Glaucoma (Acute) Anxiety (Acute) Colon polyp (Acute) History of open sigmoidectomy (Acute) Insomnia (Acute) Lumbar spinal stenosis (Acute) Surgical History Colostomy status (Acute) History of repair of hiatal hernia (Acute) S/P exploratory laparotomy (Acute) Family History Father No problems noted. Mother Heart attack Sister Diabetes mellitus Brother Diabetes mellitus Son Diabetes mellitus Social History household members: none Smoking Status: Never smoker alcohol intake: current Meds Home Medications Medication Instructions Recorded Confirmed Type latanoprost 1 drp OPHTH HS #0 12/30/16 10/30/17 History escitalopram oxalate 20 mg PO HS #0 08/08/17 10/30/17 History sennosides [senna] 8.6 mg PO QDAY #0 08/08/17 10/30/17 History gabapentin 200 mg PO BID #10 cap 08/29/17 10/30/17 Rx hydrocodone-acetaminophen 1 - 2 tab PO Q6HP PRN #14 tab MDD 6 08/29/17 10/30/17 Rx levothyroxine [Synthroid] 50 mcg PO DAILY #30 tab 08/29/17 10/30/17 Rx walker #1 each 08/29/17 10/30/17 Rx Allergies Allergy/AdvReac Type Severity Reaction Status Date / Time penicillin V [PENICILLIN V] Allergy Severe rash Verified 10/30/17 18:34 latex [LATEX] Allergy Mild rash Verified 10/30/17 18:34 Review of Systems Review of Systems All systems reviewed & are unremarkable except as noted in HPI and below Exam Vital Signs (past 8 hours): - 10/31/17 07:43 10/31/17 08:33 10/31/17 08:46 Temperature 100.2 F H 100.2 F H 100.2 F H Pulse Rate 82 83 83 Respiratory Rate 18 11 L 11 L Blood Pressure 100/50 L 105/57 L 105/57 L Pulse Oximetry 96 95 10/31/17 08:49 10/31/17 10:33 10/31/17 10:37 Temperature 100.6 F H 101.1 F H 101.1 F H Pulse Rate 84 91 H Respiratory Rate 16 16 Blood Pressure 108/54 L 122/66 H Pulse Oximetry 10/31/17 10:47 10/31/17 11:02 10/31/17 12:00 Temperature 101.1 F H 100.1 F H 100.1 F H Pulse Rate 91 H 94 H 94 H Respiratory Rate 13 14 14 Blood Pressure 122/66 H 117/51 L 117/51 L Pulse Oximetry 96 10/31/17 13:02 Temperature 98.9 F Pulse Rate 95 H Respiratory Rate 14 Blood Pressure 122/55 H Pulse Oximetry Oxygen Delivery Method Room Air Narrative Exam Narrative: Thin pleasant lady in no obvious distress HEENT: Normocephalic and atraumatic, pupils equal round reactive to light accommodation with anicteric sclera Lungs: Clear bilaterally Heart: Regular rate and rhythm Abdomen: Soft, healing abdominal incisions, active bowel sounds. Extremities: Warm and well perfused Objective Labs Result Diagrams: 10/31/17 12:48 10/31/17 04:46 Labs: Laboratory Results - last 24 hr 10/30/17 10/30/17 10/30/17 18:25 18:25 18:25 WBC 13.9 H RBC 2.27 L Hgb 6.7 L* Hct 20.4 L* MCV 89.8 MCH 29.5 MCHC 32.9 RDW 18.6 H Plt Count 218 Neut % (Auto) 76.5 H Lymph % (Auto) 15.8 L [place] % (Auto) 5.8 Eos % (Auto) 1.3 L Baso % (Auto) 0.6 Neut # (Auto) 25522 H RBC Morphology Not Reportable Anisocytosis 1+ H PT 12.5 INR 1.2 APTT 21 L Sodium Potassium Chloride Carbon Dioxide BUN Creatinine Estimated GFR BUN/Creatinine Ratio Glucose Lactate Calcium Magnesium Total Bilirubin AST ALT Alkaline Phosphatase Troponin I B-Natriuretic Peptide Total Protein Albumin Globulin Albumin/Globulin Ratio Lipase Procalcitonin < 0.05 TSH Free T4 Specimen Hemolysis Urine Color Urine Appearance Urine pH Ur Specific [place] Urine Protein Urine Glucose (UA) Urine Ketones Urine Occult Blood Urine Nitrate Urine Bilirubin Urine Urobilinogen Ur Leukocyte Esterase Urine RBC Urine WBC Urine Bacteria Hyaline Casts Urine Mucus Ur Culture Indicated? Micro UA Comment U Random Total Protein Urine Creatinine Protein/Creatinin Ratio Nasal Screen MRSA (PCR) Blood Type Antibody Screen Crossmatch 10/30/17 10/30/17 10/30/17 18:25 18:25 18:25 WBC Cancelled RBC Cancelled Hgb Cancelled Hct Cancelled MCV Cancelled MCH Cancelled MCHC Cancelled RDW Cancelled Plt Count Cancelled Neut % (Auto) Cancelled Lymph % (Auto) Cancelled [place] % (Auto) Cancelled Eos % (Auto) Cancelled Baso % (Auto) Cancelled Neut # (Auto) Cancelled RBC Morphology Anisocytosis PT INR APTT Sodium 139 Potassium 3.5 Chloride 99 Carbon Dioxide 25 BUN 39 H Creatinine 0.60 Estimated GFR > 60.0 BUN/Creatinine Ratio 65.0 H Glucose 160 H Lactate 4.5 H Calcium 8.4 Magnesium Total Bilirubin 0.2 AST 29 ALT 29 Alkaline Phosphatase 45 Troponin I B-Natriuretic Peptide < 100.0 Total Protein 6.0 L Albumin 3.3 L Globulin 2.7 Albumin/Globulin Ratio 1.2 Lipase 101 Procalcitonin TSH Free T4 Specimen Hemolysis Urine Color Urine Appearance Urine pH Ur Specific [place] Urine Protein Urine Glucose (UA) Urine Ketones Urine Occult Blood Urine Nitrate Urine Bilirubin Urine Urobilinogen Ur Leukocyte Esterase Urine RBC Urine WBC Urine Bacteria Hyaline Casts Urine Mucus Ur Culture Indicated? Micro UA Comment U Random Total Protein Urine Creatinine Protein/Creatinin Ratio Nasal Screen MRSA (PCR) Blood Type Antibody Screen Crossmatch 10/30/17 10/30/17 10/30/17 18:25 18:25 18:55 WBC RBC Hgb Hct MCV MCH MCHC RDW Plt Count Neut % (Auto) Lymph % (Auto) [place] % (Auto) Eos % (Auto) Baso % (Auto) Neut # (Auto) RBC Morphology Anisocytosis PT INR APTT Sodium Cancelled Potassium Cancelled Chloride Cancelled Carbon Dioxide Cancelled BUN Cancelled Creatinine Cancelled Estimated GFR Cancelled BUN/Creatinine Ratio Cancelled Glucose Cancelled Lactate Calcium Cancelled Magnesium 1.9 Total Bilirubin Cancelled AST Cancelled ALT Cancelled Alkaline Phosphatase Cancelled Troponin I < 0.012 B-Natriuretic Peptide Total Protein Cancelled Albumin Cancelled Globulin Cancelled Albumin/Globulin Ratio Cancelled Lipase Cancelled Procalcitonin TSH 10.70 H Free T4 0.94 Specimen Hemolysis Cancelled Urine Color Urine Appearance Urine pH Ur Specific [place] Urine Protein Urine Glucose (UA) Urine Ketones Urine Occult Blood Urine Nitrate Urine Bilirubin Urine Urobilinogen Ur Leukocyte Esterase Urine RBC Urine WBC Urine Bacteria Hyaline Casts Urine Mucus Ur Culture Indicated? Micro UA Comment U Random Total Protein Urine Creatinine Protein/Creatinin Ratio Nasal Screen MRSA (PCR) Blood Type A Positive Antibody Screen Negative Crossmatch See Detail 10/30/17 10/30/17 10/30/17 19:35 19:50 22:40 WBC RBC Hgb Hct MCV MCH MCHC RDW Plt Count Neut % (Auto) Lymph % (Auto) [place] % (Auto) Eos % (Auto) Baso % (Auto) Neut # (Auto) RBC Morphology Anisocytosis PT INR APTT Sodium Potassium Chloride Carbon Dioxide BUN Creatinine Estimated GFR BUN/Creatinine Ratio Glucose Lactate Calcium Magnesium Total Bilirubin AST ALT Alkaline Phosphatase Troponin I B-Natriuretic Peptide Total Protein Albumin Globulin Albumin/Globulin Ratio Lipase Procalcitonin TSH Free T4 Specimen Hemolysis Urine Color Yellow Urine Appearance Clear Urine pH 6.5 Ur Specific [place] 1.010 Urine Protein Negative Urine Glucose (UA) Negative Urine Ketones Negative Urine Occult Blood Negative Urine Nitrate Negative Urine Bilirubin Negative Urine Urobilinogen 0.2 Ur Leukocyte Esterase Negative Urine RBC 0-1/hpf Urine WBC 1-5/hpf Urine Bacteria None seen Hyaline Casts 1-5/lpf Urine Mucus 1+ H Ur Culture Indicated? Cult not indicated Micro UA Comment Not Reportable U Random Total Protein 6 Urine Creatinine 61.4 Protein/Creatinin Ratio 0.09 Nasal Screen MRSA (PCR) Negative for mrsa Blood Type Antibody Screen Crossmatch 10/30/17 10/31/17 10/31/17 22:44 04:46 04:46 WBC 5.7 D RBC 2.34 L Hgb 7.0 L Hct 21.0 L MCV 89.5 MCH 29.9 MCHC 33.4 RDW 17.3 H Plt Count 137 L Neut % (Auto) 67.0 Lymph % (Auto) 20.8 L [place] % (Auto) 10.5 Eos % (Auto) 0.5 L Baso % (Auto) 1.2 Neut # (Auto) 3800 RBC Morphology Anisocytosis PT INR APTT Sodium 142 Potassium 3.6 Chloride 110 H Carbon Dioxide 26 BUN 33 H Creatinine 0.50 L Estimated GFR > 60.0 BUN/Creatinine Ratio 66.0 H Glucose 100 Lactate 1.2 Calcium 7.7 L Magnesium 1.9 Total Bilirubin AST ALT Alkaline Phosphatase Troponin I 0.073 H B-Natriuretic Peptide Total Protein Albumin Globulin Albumin/Globulin Ratio Lipase Procalcitonin TSH Free T4 Specimen Hemolysis Urine Color Urine Appearance Urine pH Ur Specific [place] Urine Protein Urine Glucose (UA) Urine Ketones Urine Occult Blood Urine Nitrate Urine Bilirubin Urine Urobilinogen Ur Leukocyte Esterase Urine RBC Urine WBC Urine Bacteria Hyaline Casts Urine Mucus Ur Culture Indicated? Micro UA Comment U Random Total Protein Urine Creatinine Protein/Creatinin Ratio Nasal Screen MRSA (PCR) Blood Type Antibody Screen Crossmatch 10/31/17 12:48 WBC RBC Hgb 10.0 L Hct 29.5 L MCV MCH MCHC RDW Plt Count Neut % (Auto) Lymph % (Auto) [place] % (Auto) Eos % (Auto) Baso % (Auto) Neut # (Auto) RBC Morphology Anisocytosis PT INR APTT Sodium Potassium Chloride Carbon Dioxide BUN Creatinine Estimated GFR BUN/Creatinine Ratio Glucose Lactate Calcium Magnesium Total Bilirubin AST ALT Alkaline Phosphatase Troponin I B-Natriuretic Peptide Total Protein Albumin Globulin Albumin/Globulin Ratio Lipase Procalcitonin TSH Free T4 Specimen Hemolysis Urine Color Urine Appearance Urine pH Ur Specific [place] Urine Protein Urine Glucose (UA) Urine Ketones Urine Occult Blood Urine Nitrate Urine Bilirubin Urine Urobilinogen Ur Leukocyte Esterase Urine RBC Urine WBC Urine Bacteria Hyaline Casts Urine Mucus Ur Culture Indicated? Micro UA Comment U Random Total Protein Urine Creatinine Protein/Creatinin Ratio Nasal Screen MRSA (PCR) Blood Type Antibody Screen Crossmatch Assessment & Plan Plan: Assessment/Plan Narrative: Likely upper GI hemorrhage in the setting of a very pleasant lady with chronic back pain who had a normal colonoscopy less than 1 year ago. We have discussed the risks and benefits of the procedure and the patient expressed a desire to complete esophagogastroduodenoscopy today.
[2017-10-31] MEDS: SODIUM CHLORIDE 0.9% 1,000 ML 200 ML IV (15:45)
--- NOTE | 2017-10-31 15:54 | PM.OP.1 ---
Operative Date/Time/Diagnoses - Date of procedure: 10/31/17 Time of procedure: 15:54 Pre-op diagnosis: Upper GI hemorrhage Post-op diagnosis: same Procedure & Clinicians Procedure: Esophagogastroduodenoscopy with biopsy Same procedure as scheduled: Yes Indications: Upper GI hemorrhage with significant anemia Surgeon: Kika Eric Click Yes if Unassisted: Yes Anesthesia Type: Sedation (Versed 3 mg, fentanyl 50 mcg) Operative Notes Findings: 1. 3-4 cm sliding hiatal hernia 2. Kissing ulcers of the gastric cardia. No active bleeding but some stigmata of recent bleeding. 3. No evidence of other gastritis or duodenitis 4. No other sources of hemorrhage appreciated 5. Normal posterior oropharynx and true vocal cords Closure Type: not applicable Estimated Blood Loss (mL): 1 Procedure in detail: After obtaining informed consent, the patient was brought to the GI suite and placed in the left lateral decubitus position on the examination table. After placement of appropriate monitors, the patient was given incremental doses of Versed and Fentanyl until an appropriate level of sedation was achieved. A time out was held per SCOAP protocol. A bite block was gently placed between the patient's teeth. The endoscope was lubricated and then passed into the patient's posterior oropharynx. The esophagus was cannulated under direct vision and the scope was passed to the second portion of the duodenum without difficulty. The scope was then withdrawn with careful examination of all areas of the upper GI tract and mucosa. In the stomach, the instrument was retroflexed and the GE junction examined. The scope was straightened and the procedure continued with examination of the remainder of the upper GI tract. Findings are noted above. Air was aspirated from the stomach and the endoscope gently removed from the esophagus. The patient was allowed to awaken from sedation without difficulty and taken to the post-anesthesia care unit in good condition. Complications: none Condition: stable Disposition: PACU Plan for aftercare: 1. Return to CCU for continued care 2. Would continue pantoprazole for at least 6 weeks. Could switch to oral form.
[2017-10-31] MEDS: TETRACAINE/BENZOCAINE/BUTAMBEN (CETACAINE) BOTTLE 1 SPRAY TOP (16:03)
[2017-10-31] MEDS: LIDOCAINE 4% SOLN 50 ML 20 ML TOP (16:05)
[2017-10-31] MEDS: MIDAZOLAM 5 MG/5 ML VIAL IV (16:06)
[2017-10-31] MEDS: fentaNYL 250 MCG/5 ML INJ IV (16:07)
[2017-10-31] MEDS: SODIUM CHLORIDE 0.9% 1,000 ML 100 ML IV (17:13)
[2017-10-31] MEDS: GABAPENTIN 100 MG CAPSULE 200 MG PO (20:25)
[2017-10-31] MEDS: LATANOPROST 0.005% OPHTH 2.5 ML 1 DROPS EYE-BOTH (20:25)
[2017-10-31] MEDS: ESCITALOPRAM 10 MG TABLET 20 MG PO (20:25)
[2017-11-01] VITALS (11 sets, daily range): BP systolic 91–106; BP diastolic 35–61; PULSE 66–75; RESP 14–18; TEMP 36–37.3; O2SAT 95–98
[2017-11-01] MEDS: HYDROMORPHONE 0.5 MG INJ IV (08:32)
[2017-11-01] MEDS: LEVOTHYROXINE 50 MCG TABLET PO (08:33)
[2017-11-01] MEDS: GABAPENTIN 100 MG CAPSULE 200 MG PO ×2 (08:33→21:38)
[2017-11-01] MEDS: PANTOPRAZOLE 40 MG VIAL IV (08:40)
--- NOTE | 2017-11-01 09:15 | CM.DANOTE ---
Addendum entered by DANIELA Giron 11/01/17 10:57: ADD: Per RN, pt's close friend requesting to discuss d/c concerns with SW. SW met outside of pt's room since pt was sleeping and friend Kasandra ([phone]) confirmed that pt has about 3-4 friends that informally provide assist to the pt multiple times a week when needed for errands and appointments and pt does not have any paid caregivers. Kasandra states that pt has needed increasing admits to the hospital and is worried that pt does not have anyone overnight or 21/11. Also undetermined how much pt is eating a day and pt has reported to them that she only has one can of Ensure daily for her intake. Provided Kasandra with the list of Private Pay Caregiver Agencies and the Senior Resource Guidebook as Kasandra has attempted to call caregivers in the past to help the pt but barriers are finding a caregiver overnight that also speaks Martiniquais. Kasandra and friend support group are willing to help the pt set up additional support at d/c but they do not feel they can provide the level of care themselves. STACIE discussed possible SNF rehab at d/c while they help set up additional care (caregivers vs Assisted Living?). Kasandra suggested a conversation with pt and son Royce with [employer] to reduce any language barriers. Plan: SW to follow in the morning (since today is a holiday) for setting up at least a Care Conference with pt and son including a [employer] and potentially involving MD and friend support towards discussion of increased care at d/c (SNF, private pay caregivers, Assisted Living options) to reduce pt's risk of readmit. DANIELA Giron Original Note: Per MD, pt tolerated surgical procedure well on 10/31/17 and received blood transfusion. Per RN, pt has had supportive friends bedside and in contact for d/c support and after discussion RN also feels PT eval would be helpful in d/c planning. SW met bedside with pt and explained role and pt confirmed that she still lives alone in [place] but has local supportive friends that assist her when needed and help get her to the store and appointments. Pt also has a paraffiner to help with cleaning once a week. Pt is Independent with most ADL's and does not use equipment to ambulate at baseline but has a cane and walker at home if needed. At last admit in July 2017, pt's son was able to come stay with the pt for 2 weeks and then pt's friend stayed with her for a week and pt had [facility] set up and felt that they were helpful and pt would be agreeable to HH again if needed. Pt confirms that she had been feeling weaker than baseline leading up to this admit and was requiring more assist from friends. Pt states that her friends are available to assist at d/c but that she currently does not have anyone set up to stay 24/ with her at discharge. Pt has [employer] already that she can use if an emergency arises. Pt states her DPOA pwk is on file here at [facility]. Plan: SW to follow for PT eval to determine d/c planning needs and possible d/c home with friends to assist and possible need for HH referral. DANIELA Giron Discharge Planning/Care Management CM Discharge Assessment Start: 10/31/17 08:57 Freq: Status: Active Protocol: Document 10/31/17 08:58 (Rec: 10/31/17 09:00 [id number]) Discharge Planning Assessment History Provided By Patient Medical Record Is this patient on Medicare? Yes Prior Living Arrangements House Household Members none Type of transporation used prior to Relies on Others admit Independent with ADL's Yes Is patient alert and oriented? Yes Caregiver for Another No Patient Discharge Plan Description Home with Home Health Referrals Initiated Home Health Comment [facility] HH/RN/PT/OT Discharge Plan Home with Home Health If patient plan is home with home health Yes : Has signed face to face form been completed? Document 11/01/17 09:13 (Rec: 11/01/17 09:15 [id number]) Discharge Planning Assessment Assigned Home Care Rn CLINICAL TRIALS MANAGER History Provided By Patient Medical Record Has Patient been admitted in last 30 No days? Is this patient on Medicare? Yes Is the admit diagnosis the same? No Comment Pt had surgical procedure Prior Living Arrangements House Household Members none Type of transporation used prior to Relies on Others admit Comment Pt has supportive local friends that provide assist when needed and a paraffiner once a week for cleaning. Independent with ADL's Yes Is patient alert and oriented? Yes Needs Assistance With Home Chores / Shopping Caregiver for Another No DME Already Rented / Owned FWW / Walker Cane Comment Pt typically ambulates independently but has some DME if needed. Patient Discharge Plan Description Home with Home Health Referrals Initiated Home Health Comment [facility] HH/RN/PT/OT Discharge Plan Home with Home Health Transportation Arrangement Pt has supportive friends who can provide transport at d/c If patient plan is home with home health No : Has signed face to face form been completed? Review Status In Process Next Review Type Discharge Review
[2017-11-01 11:35] LABS: Add Manual Diff / Slide Review NO; Basophils Percent Auto 1.4 % (0-2); Eosinophils Percent Auto 1.8 % (2-4); Hematocrit 29.4 % (36-46); Lymphocytes Percent Auto 15.6 % (25-40); Mean Corpuscular HGB Conc 33.9 % (30-36); Mean Corpuscular Hemoglobin 30.1 PG (26-34); Mean Corpuscular Volume 88.9 fL (80-100); Monocytes Percent Auto 7.3 % (3-14); Neutrophils Absolute Auto 4500 /uL (3000-5900); Neutrophils Percent Auto 73.9 % (50-75); Platelet Count 117 X10^3/uL (150-400); Red Blood Cell Count 3.31 X10^6/uL (4.0-5.2); Red Cell Distribution Width 16.4 % (11.6-14.8); White Blood Cell Count 6.1 X10^3/uL (4.5-11.0)
--- NOTE | 2017-11-01 11:53 | PM.PN.1 ---
Subjective Date Patient Seen: 11/01/17 Time Patient Seen: 10:40 Interval history: The patient reports feeling better. Upper endoscopy showed kissing gastric ulcers at her hiatal hernia site. She denies abdominal pain, nausea, vomiting, hematemesis or rectal bleeding. Exam Vital Signs (past 8 hours): - 11/01/17 03:58 11/01/17 04:00 11/01/17 07:50 Temperature 96.8 F L 99.1 F Pulse Rate 69 67 Respiratory Rate 16 14 Blood Pressure 99/54 L 91/58 L Pulse Oximetry 98 96 11/01/17 09:34 11/01/17 11:00 Temperature Pulse Rate 69 Respiratory Rate 16 Blood Pressure Pulse Oximetry 98 98 Oxygen Delivery Method Room Air Oxygen Flow Rate 99 Narrative Exam Narrative: General: Alert, appropriate healthy appearing Juan Julio in female, reports moderate back pain and appears uncomfortable HEENT: Pupils equal round reactive, extraocular movements intact, mucous membranes pink and moist Neck: Supple Lungs: Clear to auscultation Cardiac: Regular rate and rhythm without appreciable murmur Abdomen: Soft, mild epigastric tenderness, no guarding, rebound or rigidity healed midline scar and left abdomen colostomy site Extremities: Without edema, no calf tenderness or swelling Dermatologic: No rash or skin lesions Neurologic: Alert, oriented, no focal findings evident Objective Labs Result Diagrams: 11/01/17 11:06 10/31/17 04:46 Labs: Laboratory Results - last 24 hr 10/30/17 10/31/17 11/01/17 18:55 12:48 11:06 WBC 6.1 RBC 3.31 L Hgb 10.0 L 10.0 L Hct 29.5 L 29.4 L MCV 88.9 MCH 30.1 MCHC 33.9 RDW 16.4 H Plt Count 117 L Neut % (Auto) 73.9 Lymph % (Auto) 15.6 L [place] % (Auto) 7.3 Eos % (Auto) 1.8 L Baso % (Auto) 1.4 Neut # (Auto) 4500 Crossmatch See Detail Assessment & Plan Plan: Assessment/Plan Narrative: 1. Acute gastrointestinal bleeding due to kissing gastric ulcers due to hiatal hernia. Continue proton pump inhibitor twice daily. She will likely need to remain on PPI therapy indefinitely. 2. Acute blood loss anemia due to 1, status post 3 unit packed red blood cell transfusion. 3. Lumbar spinal stenosis with chronic low back pain and opioid habituation. Resume routine oral medications. 4. Hypothyroidism. Continue routine levothyroxine. 5. Depression. Adequately controlled. Continue routine medications. 6. DVT prophylaxis: SCDs. Avoid anticoagulants given active bleeding. 7. Code status: Full code. Reviewed with patient on admission. 8. Disposition: The patient is admitted inpatient status as she will likely require at least 2 midnights of inpatient level care. She normally lives alone, with her son living in [facility] notified by the patient of this admission. Possible discharge home tomorrow if doing well. Quality VTE Deep Vein Thrombosis/Pulmonary Embolism Present on Admission: No
--- NOTE | 2017-11-01 11:58 | P.PN_ITS ---
Subjective Date Patient Seen: 11/01/17 Time Patient Seen: 10:40 Interval history: The patient reports feeling better. Upper endoscopy showed kissing gastric ulcers at her hiatal hernia site. She denies abdominal pain, nausea, vomiting, hematemesis or rectal bleeding. Exam Vital Signs (past 8 hours): - 11/01/17 03:58 11/01/17 04:00 11/01/17 07:50 Temperature 96.8 F L 99.1 F Pulse Rate 69 67 Respiratory Rate 16 14 Blood Pressure 99/54 L 91/58 L Pulse Oximetry 98 96 11/01/17 09:34 11/01/17 11:00 Temperature Pulse Rate 69 Respiratory Rate 16 Blood Pressure Pulse Oximetry 98 98 Oxygen Delivery Method Room Air Oxygen Flow Rate 99 Narrative Exam Narrative: General: Alert, appropriate healthy appearing Juan Julio in female, reports moderate back pain and appears uncomfortable HEENT: Pupils equal round reactive, extraocular movements intact, mucous membranes pink and moist Neck: Supple Lungs: Clear to auscultation Cardiac: Regular rate and rhythm without appreciable murmur Abdomen: Soft, mild epigastric tenderness, no guarding, rebound or rigidity healed midline scar and left abdomen colostomy site Extremities: Without edema, no calf tenderness or swelling Dermatologic: No rash or skin lesions Neurologic: Alert, oriented, no focal findings evident Objective Labs Result Diagrams: 11/01/17 11:06 10/31/17 04:46 Labs: Laboratory Results - last 24 hr 10/30/17 10/31/17 11/01/17 18:55 12:48 11:06 WBC 6.1 RBC 3.31 L Hgb 10.0 L 10.0 L Hct 29.5 L 29.4 L MCV 88.9 MCH 30.1 MCHC 33.9 RDW 16.4 H Plt Count 117 L Neut % (Auto) 73.9 Lymph % (Auto) 15.6 L [place] % (Auto) 7.3 Eos % (Auto) 1.8 L Baso % (Auto) 1.4 Neut # (Auto) 4500 Crossmatch See Detail Assessment & Plan Plan: Assessment/Plan Narrative: 1. Acute gastrointestinal bleeding due to kissing gastric ulcers due to hiatal hernia. Continue proton pump inhibitor twice daily. She will likely need to remain on PPI therapy indefinitely. 2. Acute blood loss anemia due to 1, status post 3 unit packed red blood cell transfusion. 3. Lumbar spinal stenosis with chronic low back pain and opioid habituation. Resume routine oral medications. 4. Hypothyroidism. Continue routine levothyroxine. 5. Depression. Adequately controlled. Continue routine medications. 6. DVT prophylaxis: SCDs. Avoid anticoagulants given active bleeding. 7. Code status: Full code. Reviewed with patient on admission. 8. Disposition: The patient is admitted inpatient status as she will likely require at least 2 midnights of inpatient level care. She normally lives alone , with her son living in [facility] notified by the patient of this admission. Possible discharge home tomorrow if doing well. Quality VTE Deep Vein Thrombosis/Pulmonary Embolism Present on Admission: No
--- NOTE | 2017-11-01 15:28 | PT.IIE ---
Current Diagnoses Melena (10/30/17) Surgery Performed Operation Date: 10/31/17 15:00 Actual Procedures p Esophagogastroduodenoscopy WITH BIOPSY(Not Applicable) - Kika Eric MD Surgical History (Last Reviewed 10/31/17 @ 15:42 by Kika Eric MD) Colostomy status (Acute) History of repair of hiatal hernia (Acute) S/P exploratory laparotomy (Acute) Medical History (Last Reviewed 10/31/17 @ 15:42 by Kika Eric MD) Hypothyroidism (Acute) Glaucoma (Acute) Anxiety (Acute) Colon polyp (Acute) History of open sigmoidectomy (Acute) Insomnia (Acute) Lumbar spinal stenosis (Acute) Physical Therapy Inpatient Evaluation/Re-Eval M1 PT/OT-IP Prior Functional Status Start: 11/01/17 15:11 Freq: NEEDED Status: Active Protocol: Document 11/01/17 15:12 [facility] (Rec: 11/01/17 15:28 [facility] [id number]) Medical Review Prior Functional Status Medical History Reviewed Yes Communication communication with nursing prior to PT Mobility and Gait no assistive device used, low back pain limited long distance ambulation Prior Functional Level (Other details) IND Social History Household Members none Living Arrangements House M2 PT-IP Current Condition Start: 11/01/17 15:11 Freq: NEEDED Status: Active Protocol: Document 11/01/17 15:12 [facility] (Rec: 11/01/17 15:28 [facility] [id number]) Physical Therapy Current Condition Current Condition Evaluation Date 11/01/17 Treatment Diagnosis upper GI bleed with endoscopy showing kissing gastric @ hiatal hernia site Weight Bearing Status Weight Bearing Status Full Weight Bearing M3 PT-IP Subjective Start: 11/01/17 15:11 Freq: NEEDED Status: Active Protocol: Document 11/01/17 15:12 [facility] (Rec: 11/01/17 15:28 [facility] [id number]) Subjective Physical Therapy Visit Type Type Initial Evaluation Visit Start Time 14:50 Visit Stop Time 16:10 Total Visit Minutes 20 M4 PT-IP Mobility and Gait Start: 11/01/17 15:11 Freq: NEEDED Status: Active Protocol: Document 11/01/17 15:12 [facility] (Rec: 11/01/17 15:28 [facility] [id number]) PT-Bed Mobility Assessment Rolling Level of Assist Independent Sit to Supine Sit to Supine Independent Scooting Scooting to Edge of Bed Independent Scooting Up and Down in Bed Independent PT-Transfer Assessment Sit to and From Stand Sit to and from Stand Contact Guard Assistance Equipment Orthotic/Prosthetic Devices or Brace: No Transfer Ability Level of Assist Contact Guard Assistance Comments Mobility Comments Cordelia reports she had been a little dizzy the last time she stood up but this afternoon she denied any c/o dizzyness Gait Assessment Gait Gait Assistance Required: Contact Guard Assist Distance (Feet) (feet) 150 Able to Maintain Weight Bearing Status Yes During Gait Assistive Devices Assistive Device None Gait Belt Orthotic/Prosthetic Devices or Brace: No Gait Deviations General Gait Pattern Decreased Stride Length Factors Limiting Gait Function Factors Limiting Gait Function Pain Comments Gait Comments low back pain limits gait duration PT-Balance Assessment Sitting Balance and Reactions Static Sitting Balance Ability Normal Dynamic Sitting Balance Ability Normal Standing Balance and Reactions Static Standing Balance Ability Normal Dynamic Standing Balance Ability Normal M7 PT-IP Assessment and Plan Start: 11/01/17 15:11 Freq: NEEDED Status: Active Protocol: Document 11/01/17 15:12 [facility] (Rec: 11/01/17 15:28 [facility] [id number]) PT Summary Assessment and Plan Potential Rehabilitation Potential Excellent Summary Impairments Pain Strength Frequency of Treatment Frequency Of Treatment Discharge Discharge Recommendations PT Discharge Recommendations Home Other Discharge Recommendations Cordelia would like to return home, she appears to be at her base line with mobility and gait.
[2017-11-01] MEDS: HYDROCODONE/ACET 5/325 TABLET 1 TAB PO (16:35)
--- NOTE | 2017-11-01 16:41 | PC.NURSE ---
1630- Patient up with occupational therapy to walk. Patient did not want to shower. Patient is alert and cooperative with care. C/O generalized pain 4/10 medicated per order. Will monitor.
--- NOTE | 2017-11-01 17:25 | OT.IP.EVAL ---
Current Diagnoses Melena (10/30/17) Surgery Performed Operation Date: 10/31/17 15:00 Actual Procedures p Esophagogastroduodenoscopy WITH BIOPSY(Not Applicable) - Kika Eric MD Past Medical History (Last Reviewed 10/31/17 @ 15:42 by Kika Eric MD) Hypothyroidism (Acute) Glaucoma (Acute) Anxiety (Acute) Colon polyp (Acute) History of open sigmoidectomy (Acute) Insomnia (Acute) Lumbar spinal stenosis (Acute) Surgical History (Last Reviewed 10/31/17 @ 15:42 by Kika Eric MD) Colostomy status (Acute) History of repair of hiatal hernia (Acute) S/P exploratory laparotomy (Acute) Occupational Therapy Inpatient Evaluation/Re-Eval M1 PT/OT-IP Prior Functional Status Start: 11/01/17 15:11 Freq: NEEDED Status: Active Protocol: Document 11/01/17 15:12 [facility] (Rec: 11/01/17 15:28 [facility] [id number]) Medical Review Prior Functional Status Medical History Reviewed Yes Communication communication with nursing prior to PT Mobility and Gait no assistive device used, low back pain limited long distance ambulation Prior Functional Level (Other details) IND Social History Household Members none Living Arrangements House M1 PT/OT-IP Prior Functional Status Start: 11/01/17 17:07 Freq: NEEDED Status: Active Protocol: Document 11/01/17 17:08 [facility] (Rec: 11/01/17 17:25 [facility] [id number]) Medical Review Prior Functional Status Medical History Reviewed Yes Communication communication with nursing prior to PT Mobility and Gait no assistive device used, low back pain limited long distance ambulation Activities of Daily Living and IADL's Per pt able to do all ADL needs and has hired assist for IADl needs 1x/week for housekeeping. Prior Functional Level (Other details) IND Social History Household Members none Living Arrangements House Number of Stairs To Enter/Railing? 2 steps with no railing Home Equipment Straight Cane Grab Bars In Shower Additional Social History Comment Pt has friends to assist for errands and appointments. M2 OT-IP Current Condition Start: 11/01/17 17:07 Freq: Status: Active Protocol: Document 11/01/17 17:08 [facility] (Rec: 11/01/17 17:25 [facility] [id number]) Occupational Therapy Current Condition Current Condition Evaluation Date 11/01/17 Treatment Diagnosis Upper GI Bleed showing Kissing gastric at hiatal hernia site Weight Bearing Status Weight Bearing Status Full Weight Bearing M3 OT- IP Subjective and Pain Start: 11/01/17 17:07 Freq: Status: Active Protocol: Document 11/01/17 17:08 [facility] (Rec: 11/01/17 17:25 [facility] [id number]) OT- Subjective Occupational Therapy Visit Type Type Initial Evaluation Visit Start Time 16:20 Visit Stop Time 16:40 Total Visit Minutes 20 Occupational Therapy Visit Comments Patient/Caregiver Goals Pt wanting to go home when stable. OT Pain Assessment Pain When Pain Assessed During Mobility Pain Present Pain Present Pain Reported Location Right Knee Intensity 5 Scale Used Numeric (1 - 10) Pain Behaviors Guarding Management Techniques Timing of Activity with Medications M4 OT- IP ADL's Start: 11/01/17 17:07 Freq: Status: Active Protocol: Document 11/01/17 17:08 [facility] (Rec: 11/01/17 17:25 [facility] [id number]) OT ADL-Dressing General Eval Upper Body Dressing Ability Standby Assistance Lower Body Dressing Ability Standby Assistance Areas Needing Assistance Retrieving/Set-up of Clothing Comments OT Dressing Comments SBA for donning/doffing socks while sitting. OT ADL-Toileting Comments OT Toileting Comments Per pt has been using the bathroom in the room with nursing present. OT ADL-Bathing Comments OT Bathing Comments Pt not wanting to shower at this time. M5 OT- IP IADL's Start: 11/01/17 17:07 Freq: Status: Active Protocol: Document 11/01/17 17:08 [facility] (Rec: 11/01/17 17:25 [facility] [id number]) OT-Instrumental Activities of Daily Living Home Safety Awareness Awareness of Need for Assistance at Home Decreased Awareness Home Safety Comments Pt states usually does not take breaks while doing IADL needs when educating pt regarding energy conservation and work simplification needs. Medication Management Medication Management Comments Pt states takes her own medications from bottles. Money Management Money Management Comments Pt states does her own bills. Meal Preparation Meal Preparation Comments Pt states eats cereal in the morning, salad or sandwich for lunch and cooks for dinner. Pt admits usually only has 2 meals per day. Audio Experience Expert Audio Experience Expert Comments Pt states having more difficulty to vaccuum. M6 OT- IP Functional Cognition Start: 11/01/17 17:07 Freq: Status: Active Protocol: Document 11/01/17 17:08 [facility] (Rec: 11/01/17 17:25 [facility] [id number]) Cognitive Factors Limiting Selfcare Function Cognitive Ability Level of Alertness Alert Patient Orientation Name Age Day of Week Place Situation Attention Span Ability Capable of Focused Attention Capable of Sustained Attention Ability to Follow Commands Able to Follow Multi-Step Commands Memory Description Immediate Intact Short Term Intact Safety Awareness Underestimates Need for Assistance Cognitive Comments Cognitive Assessment Comments Pt states does not use device for walking even though seen to lean to the right due to rigth knee pain. OT- Vision and Hearing OT- Hearing Assessment OT- Hearing Assessment WFL OT- Vision Assessment Visual Acuity WFL M7 OT- IP Mobility and Balance Start: 11/01/17 17:07 Freq: Status: Active Protocol: Document 11/01/17 17:08 [facility] (Rec: 11/01/17 17:25 [facility] [id number]) OT-Transfer Assessment Sit to and From Stand Sit to and from Stand Standby Assistance Transfers Transfer Ability Standby Assistance Contact Guard Assistance Technique Transfer Destination Chair Transfer Technique Stand Step Pivot Devices Transfer Assistive Devices Gait Belt Comments Mobility Comments Pt able to walk without device but heavily lean to the right as has right knee pain, pt may benefit from device to off load right knee and increase overall functional mobility. OT- Balance Assessment Sitting Balance and Reactions Static Sitting Balance Ability Normal Dynamic Sitting Balance Ability Normal Standing Balance and Reactions Static Standing Balance Ability Good Dynamic Standing Balance Ability Fair Comments Other Balance Tests/Deviations/Treatment Pt able to reach to the floor : to citrus picker itme. Pt when turing arouund 360 degrees to the left complaining of dizziness and unsteady on her feet. M8 OT- IP Objective Assessments Start: 11/01/17 17:07 Freq: Status: Active Protocol: Document 11/01/17 17:08 [facility] (Rec: 11/01/17 17:25 [facility] [id number]) OT Gross Range of Motion Upper Extremity Range of Motion Assessment Within Functional Limits OT Strength Comments Strength Comments BUE 4/5 throughout. OT- Coordination Assessment Upper Extremity Finger to Nose Test Within Functional Limits OT-Muscle Tone Assessment Muscle Tone WNL Yes M9 OT- IP Assessment and Plan Start: 11/01/17 17:07 Freq: Status: Active Protocol: Document 11/01/17 17:08 [facility] (Rec: 11/01/17 17:25 [facility] [id number]) OT Summary Assessment and Plan Potential Rehabilitation Potential Good Analytic Complexity at Evaluation Low Summary OT Impairments Pain Balance Functional Mobility Toileting Bathing Progress Towards Goals Progressing Toward Goals Slow Progress due to Pain Assessment Summary Pt low complexity main barrier not wanting to use AED while walking, decreased dynamic balance, strength endurance and activity tolerance at this time. Pt would benefit from assist at home initially. Goals Dressing Goal Independent Toileting Goal Independent Bathing Goal Standby Assistance Toilet Transfer Goal Standby Assistance Shower Transfer Goal Standby Assistance Patient/Caregiver Education Goal Demonstrate Energy Conservation and Pacing Caregiver Independent Assisting Patient Days to Meet Goals 5 Frequency of Treatment Frequency Of Treatment Once a Day Treatment Plan OT Treatment Plan ADL Training IADL Training Patient/Family Education Discharge Planning Other Treatment Recommendations and Next Showering, education of AED, Treatment Focus family training if present. Discharge Recommendations OT Discharge Recommendations Home with Assistance Home Health Home Equipment Needs shower chair
[2017-11-01] MEDS: ESCITALOPRAM 10 MG TABLET 20 MG PO (21:38)
[2017-11-01] MEDS: LATANOPROST 0.005% OPHTH 2.5 ML 1 DROPS EYE-BOTH (21:38)
[2017-11-01] MEDS: ONDANSETRON 4 MG/2 ML INJ IV (23:46)
[2017-11-02] MEDS: HYDROCODONE/ACET 5/325 TABLET 1 TAB PO ×4 (00:39→20:40)
[2017-11-02 01:00] VITALS: BP 126/55; PULSE 61; RESP 17; TEMP 36.5; O2SAT 98
--- NOTE | 2017-11-02 02:17 | PC.NURSE ---
0100 Transfer to room 204 acute care in stable condition, denies pain, she is aware of new environment, and the mechanism to call for assistance. SCD's in place.
[2017-11-02 05:48] LABS: Add Manual Diff / Slide Review NO; Basophils Percent Auto 1.2 % (0-2); Eosinophils Percent Auto 7.5 % (2-4); Hematocrit 25.9 % (36-46); Hemoglobin 8.8 g/dL (12.0-16.0); Lymphocytes Percent Auto 24.1 % (25-40); Mean Corpuscular HGB Conc 33.9 % (30-36); Mean Corpuscular Hemoglobin 30.2 PG (26-34); Mean Corpuscular Volume 89.1 fL (80-100); Monocytes Percent Auto 11.9 % (3-14); Neutrophils Absolute Auto 2600 /uL (3000-5900); Neutrophils Percent Auto 55.3 % (50-75); Platelet Count 115 X10^3/uL (150-400); Red Blood Cell Count 2.91 X10^6/uL (4.0-5.2); Red Cell Distribution Width 16.4 % (11.6-14.8); White Blood Cell Count 4.7 X10^3/uL (4.5-11.0)
[2017-11-02] MEDS: GABAPENTIN 100 MG CAPSULE 200 MG PO ×2 (08:04→20:40)
[2017-11-02] MEDS: LEVOTHYROXINE 50 MCG TABLET PO (08:04)
--- NOTE | 2017-11-02 08:05 | PC.NURSE ---
Addendum entered by Olga Brar R.N. 11/02/17 14:26: Protonix restarted and administered late due to timing in system; was able to call pharmacy and they updated the timing and tubed up the one-time dose. Patient denying pain/n/v, visitor at bedside. Sitting up in chair. Original Note: Patient AOx4. Left wrist IV flushes well, right IV leaks when flushed. Denies n/v/d and abdominal pain. Is c/o left sciatica and right knee pain, rates it at a 4/10. Gave 1 tab Hiram. Ambulates to BR, SBA. Looks to be mildly weak. IND with ADL's. No pantaprozal ordered, although reports state pt should be on it 2x a day; will follow up with Vijaya this AM.
--- NOTE | 2017-11-02 08:36 | P.PN_ITS ---
Subjective Date Patient Seen: 11/02/17 Time Patient Seen: 08:32 Interval history: Patient states she has little lightheaded this morning and has had 1 dark, tarry stool during the night. She says she has little to weak and lightheaded to go home today. Exam Vital Signs (past 8 hours): - 11/02/17 01:00 Temperature 97.7 F Pulse Rate 61 Respiratory Rate 17 Blood Pressure 126/55 H Pulse Oximetry 98 Oxygen Delivery Method Room Air Oxygen Flow Rate 0 Narrative Exam Narrative: Pleasant appearing elderly lady in no acute distress. Const General: cooperative, healthy appearing, comfortable, well developed and well groomed Nutritional Appearance: average body habitus Orientation: alert, awake and oriented x3 HENMT Head: normal to inspection, normocephalic and atraumatic Eyes General: appearance normal, both eyes and all related structures Pupils: PERRL Neck Neck: normal visual inspection, trachea midline and supple Other: No JVD or lymphadenopathy Chest Chest: normal inspection of the chest Resp Effort & Inspection: normal respiratory effort and able to speak in complete sentences Auscultation: clear to auscultation bilaterally Cardio Rate: regular rate Rhythm: regular rhythm Other: No rubs clicks or murmurs appreciated. GI Inspection: normal to inspection Palpation: soft and no hepatosplenomegaly Auscultation: normal bowel sounds Other: Nontender to palpation Skin General: no rashes or lesions noted, dry skin and warm Neuro General: alert, awake and oriented x3 Cognition: normal cognition Speech: speech normal Gait: normal gait Motor: muscle tone normal throughout Sensory Exam: no sensory deficits noted Extrem General: normal to inspection, no pedal edema and no calf tenderness Psych Appearance: grossly normal Mental Status: mental status grossly normal Speech and Movement: speech and movement normal Mood: congruent mood Affect: normal affect Attitude: cooperative Thought Process: normal Thought Content: normal Judgment: judgment good Objective Labs Result Diagrams: 11/02/17 05:25 10/31/17 04:46 Labs: Laboratory Results - last 24 hr 11/01/17 11/02/17 11:06 05:25 WBC 6.1 4.7 RBC 3.31 L 2.91 L Hgb 10.0 L 8.8 L Hct 29.4 L 25.9 L MCV 88.9 89.1 MCH 30.1 30.2 MCHC 33.9 33.9 RDW 16.4 H 16.4 H Plt Count 117 L 115 L Neut % (Auto) 73.9 55.3 Lymph % (Auto) 15.6 L 24.1 L [place] % (Auto) 7.3 11.9 Eos % (Auto) 1.8 L 7.5 H Baso % (Auto) 1.4 1.2 Neut # (Auto) 4500 2600 L Assessment & Plan Plan: Assessment/Plan Narrative: 1. Acute gastrointestinal bleeding due to kissing gastric ulcers as result of her hiatal hernia. Last evening she had 1 large dark tarry stools (self- described) and continues to have intermittent lightheadedness today. Her H&H is down to 8.8 and 26 this morning. Vital signs were stable. No change her PPIs to oral today. She will most likely need to remain on PPI therapy indefinitely. We will continue to observe her stool pattern and obtain a H&H in the morning. 2. Acute blood loss anemia due to 1, status post 3 unit packed red blood cell transfusion. Her H&H is down a little bit overnight. 3. Lumbar spinal stenosis with chronic low back pain and opioid habituation. Resume routine oral medications. 4. Hypothyroidism. Continue routine levothyroxine. 5. Depression. Adequately controlled. Continue routine medications. 6. DVT prophylaxis: SCDs. Avoid anticoagulants given active bleeding. 7. Code status: Full code. Reviewed with patient on admission. 8. Disposition: The patient is admitted inpatient status as she will likely require at least 2 midnights of inpatient level care. She normally lives alone , with her son living in [facility] notified by the patient of this admission. Possible discharge home tomorrow if H&H is stable and she is doing well. Quality VTE Deep Vein Thrombosis/Pulmonary Embolism Present on Admission: No
[2017-11-02 09:00] VITALS: BP 125/65; PULSE 76; RESP 16; TEMP 36.3; O2SAT 99
--- NOTE | 2017-11-02 10:13 | CM.DPC ---
DCP Cont: Patient may be discharged tomorrow, dependent upon h&h results. Left message with son to call this ocular care technician back Continue to assess patient's needs, if able to get home care resources. Patient has lifeline, but may need additional care. Will also collaborate with physical therapy to note progress. Diana Alcantar RN/residential case manager
[2017-11-02 13:00] VITALS: BP 103/50; PULSE 69; RESP 16; TEMP 36.8; O2SAT 97
--- NOTE | 2017-11-02 14:16 | OT.IP.TRT ---
Current Diagnoses Melena (10/30/17) Surgery Performed Operation Date: 10/31/17 15:00 Actual Procedures p Esophagogastroduodenoscopy WITH BIOPSY(Not Applicable) - Kika Eric MD Occupational Therapy Treatment Note M2 OT-IP Current Condition Start: 11/01/17 17:07 Freq: Status: Active Protocol: Document 11/01/17 17:08 [facility] (Rec: 11/01/17 17:25 [facility] [id number]) Occupational Therapy Current Condition Current Condition Evaluation Date 11/01/17 Treatment Diagnosis Upper GI Bleed showing Kissing gastric at hiatal hernia site Weight Bearing Status Weight Bearing Status Full Weight Bearing M3 OT- IP Subjective and Pain Start: 11/01/17 17:07 Freq: Status: Active Protocol: Document 11/02/17 14:12 [facility] (Rec: 11/02/17 14:15 [facility] [id number]) OT- Subjective Occupational Therapy Visit Type Type Treatment Note Visit Start Time 13:55 Visit Stop Time 14:00 Total Visit Minutes 5 Notes Pt states going home tomorrow. Able to observe pt use bathroom with good safety however still limps on right LE , would benefit from using FWW /4ww however pt does not want to . Pt's friend in the room and concerned that pt needing more help and tends to do too much. Therefore would be beneficial for pt to pace herself and hire assist for IADL needs.
[2017-11-02] MEDS: PANTOPRAZOLE 40 MG TABLET PO ×2 (14:24→20:40)
--- NOTE | 2017-11-02 14:50 | CM.DPC ---
DC Plan Cont: Updated son on condition. Spoke to occupational therapy and stated that she was at baseline, and should not need home health. Son stated that she has friends and neighbors that assist her. Plan: Will follow patient and remind patient and friends of outside resources given. Diana Alcantar RN/protective services case worker
[2017-11-02 15:39] VITALS: BP 84/43; PULSE 74; RESP 20; TEMP 37.1; O2SAT 98
[2017-11-02 16:00] VITALS: BP 95/47
[2017-11-02 18:54] VITALS: BP 93/58
[2017-11-02] MEDS: ESCITALOPRAM 10 MG TABLET 20 MG PO (20:40)
[2017-11-02] MEDS: LATANOPROST 0.005% OPHTH 2.5 ML 1 DROPS EYE-BOTH (20:40)
[2017-11-02] MEDS: SODIUM CHLORIDE 0.9% FLUSH 10 ML IV (20:40)
--- NOTE | 2017-11-02 21:15 | PC.NURSE ---
SHIFT NOTE pt reports positive bloody stool this shift; reports it as small amount. pt also states she hd let Dr. Hilton know about her previous bloody joe from earlier in the day. this RN was unable to visualize as pt had already flushed down the toilet prior to notifying the staff. instructed pt to notify staff if another black stool occurs. pt verbalized understanding.
[2017-11-03 01:17] VITALS: O2SAT 95
--- NOTE | 2017-11-03 01:19 | PC.NURSE ---
Addendum entered by Lilli Palacios R.N. 11/03/17 06:30: Medicated earlier with Vicodin for complaint of chronic low back pain and has been sleeping since. No stools as yet this shift. Original Note: Patient is alert and oriented. Breath sounds CTA with RA sat of 95%; denies SOB w/without activity. HRR. Denies dizziness/lightheadedness. BP low at 99/63 but has been trending low since admission. Denies nausea. BT present and abdomen is soft; reports small black semiformed stool on previous shift. Denies urinary problems and is continent. Independent with bed mobility. Because of recent fall due to syncopal episode patient's fall risk score is high so bed alarm activated and explained to patient the need to call for assistance when getting up; verbalizes understanding. Denies pain at present time. Agreeable to having SCD's placed after getting up to bathroom.
[2017-11-03 01:22] VITALS: BP 99/63; PULSE 64; RESP 17; TEMP 36.7; O2SAT 95
[2017-11-03] MEDS: HYDROCODONE/ACET 5/325 TABLET 1 TAB PO ×2 (04:24→12:10)
[2017-11-03 07:00] VITALS: O2SAT 94
[2017-11-03 08:00] VITALS: BP 104/55; PULSE 64; RESP 16; TEMP 36.6; O2SAT 99
[2017-11-03 09:03] LABS: Hematocrit 28.1 % (36-46); Hemoglobin 9.5 g/dL (12.0-16.0)
[2017-11-03] MEDS: GABAPENTIN 100 MG CAPSULE 200 MG PO (09:04)
[2017-11-03] MEDS: PANTOPRAZOLE 40 MG TABLET PO (09:04)
[2017-11-03] MEDS: LEVOTHYROXINE 50 MCG TABLET PO (09:05)
[2017-11-03] MEDS: SODIUM CHLORIDE 0.9% FLUSH 10 ML IV (09:05)
--- NOTE | 2017-11-03 09:29 | PM.DS.1 ---
History of Present Illness Date Patient Seen: 11/03/17 Time Patient Seen: 09:29 Chief complaint: THROWING UP DIZZY FALL Narrative: 82-year-old woman under the primary care of Dr. Kennedi Mora presented overnight with weakness, malaise, nausea and vomiting for several days. She felt lightheadedness and fell last night, without injury, and presented to the emergency department for evaluation where she was found to have a hematocrit of 20%. Notably, the patient had a colostomy take down on August 24, [address] Austin after presentation in December 2016 with perforated diverticulitis, undergoing sigmoid colectomy and colostomy placement at that time. In March 2017 she developed a small-bowel obstruction few days after an unremarkable colonoscopy, and underwent exploratory laparotomy with lysis of adhesions. She has done fairly well since then. In the past few days she describes dark tar to black stools. No hematemesis reported. She took an Aleve tablet 2 weeks ago for back pain, but otherwise denies NSAID or aspirin use. She has severe lumbar spinal stenosis on chronic hydrocodone and plans neurosurgical consultation in the near future. Discharge Providers Date of admission: 10/30/17 21:04 Primary care physician: Kennedi Mora MD Consults: 10/30/17 20:43 Consult to General Surgery Routine Comment: Consulting Provider: Kika Eric Reason for consultation: suspected upper GI bleed Has provider been notified: Yes Consult to Physician Routine Comment: Consulting Provider: Terrell Lilly V Reason for consultation: suspected upper GI bleed Has provider been notified: Yes 10/30/17 23:01 Consult to Dietitian, Adult Routine Comment: Reason For Exam: low nutritional score 10/31/17 17:58 Consult to Equipment Operator [employer] Routine Comment: pt lives alone, family concerned about living sit. 11/01/17 09:43 Consult to Occupational Therapy Evaluate & Treat Comment: Physician Instructions: Evaluate and treat Consult to Physical Therapy Evaluate & Treat Comment: Physician Instructions: Evaluate and Treat 11/02/17 10:14 Consult to Physical Therapy Evaluate & Treat Comment: Physician Instructions: Evaluate and Treat Discharge provider: ULI Haas Summary Discharge Diagnosis: 1. Acute gastrointestinal bleed due to kissing gastric ulcers as result of hiatal hernia 2. Acute blood loss anemia due to 1 3. Lumbar spinal stenosis with chronic low back pain and opioid habituation 4. Hypothyroidism 5. Depression Hospital Course: This is a summary of a 4 day hospitalization for this 82-year-old patient came in with the weakness, malaise, nausea vomiting. Prior to admission she had described several days of dark tarry stools. Her hemoglobin on admission was 6.7 and she was transfused with 3 units packed red blood cells, and started on IV proton pump inhibitors. She was consulted to General surgery and esophagogastroduodenoscopy with biopsy was performed. A 3-4 cm sliding hernia was noted and she had kissing ulcers of the gastric cardia without any active bleeding. There is no evidence of gastritis or duodenitis. After the procedure she only had 1 episode of melanotic stool. Her hemoglobin hematocrit stabilized and she no longer complains of weakness nausea or vomiting. Her discharge hemoglobin is 9.5 and hematocrit 28.1. She will be discharged on her routine medications in addition to PPI orally. She has been advised to avoid aspirin products and NSAIDs. Follow up with her primary care provider within 2 weeks or earlier if she continues to have melanotic stools, lightheadedness, nausea or vomiting. Status at Discharge Functional status at discharge: uses cane/walker Overall status at discharge: patient is back to baseline Time Spent with Patient Greater than 30 minutes Exam Vital Signs (past 8 hours): - 11/03/17 07:00 Pulse Oximetry 94 Oxygen Delivery Method Room Air Oxygen Flow Rate 0 Narrative Exam Narrative: Pleasant appearing elderly lady in no acute distress. Const General: cooperative, healthy appearing, comfortable, well developed and well groomed Nutritional Appearance: average body habitus Orientation: alert, awake and oriented x3 [facility] Head: normal to inspection, normocephalic and atraumatic Eyes General: appearance normal, both eyes and all related structures Pupils: PERRL Neck Neck: normal visual inspection, trachea midline and supple Other: No JVD or lymphadenopathy Chest Chest: normal inspection of the chest Resp Effort & Inspection: normal respiratory effort and able to speak in complete sentences Auscultation: clear to auscultation bilaterally Cardio Rate: regular rate Rhythm: regular rhythm Other: No rubs clicks or murmurs appreciated. GI Inspection: normal to inspection Palpation: soft and no hepatosplenomegaly Auscultation: normal bowel sounds Other: Nontender to palpation Skin General: no rashes or lesions noted, dry skin and warm Neuro General: alert, awake and oriented x3 Cognition: normal cognition Speech: speech normal Gait: normal gait Motor: muscle tone normal throughout Sensory Exam: no sensory deficits noted Extrem General: normal to inspection, no pedal edema and no calf tenderness Psych Appearance: grossly normal Mental Status: mental status grossly normal Speech and Movement: speech and movement normal Mood: congruent mood Affect: normal affect Attitude: cooperative Thought Process: normal Thought Content: normal Judgment: judgment good Objective Labs Result Diagrams: 11/03/17 08:35 10/31/17 04:46 Labs: Laboratory Results - last 24 hr 11/03/17 08:35 Hgb 9.5 L Hct 28.1 L PROCEDURE: CT ABDOMEN PELVIS W CON INDICATIONS: fever with a suspect intraabdominal source TECHNIQUE: After the administration of oral and intravenous contrast, 5 mm thick sections acquired from the diaphragms to the symphysis. 5 mm thick coronal and sagittal reformats were performed. For radiation dose reduction, the following was used: automated exposure control, adjustment of mA and/or kV according to patient size. COMPARISON: [facility], CT, ABDOMEN/PELVIS WITH CONTRAST, 04/09/2017, 17:11. FINDINGS: Image quality: Excellent. ABDOMEN: Lung bases: Lung bases are clear. Heart size is normal. Solid organs: Liver is normal in size and enhancement. Gallbladder extends anteriorly, in the subhepatic space, previously the case. Biliary system is non-dilated. Pancreas enhances normally. Spleen is normal in size and enhancement. No adrenal nodules. Kidneys are normal in size and enhancement, without hydronephrosis. Peritoneum and bowel: Stomach appears to have undergone some form of esophagogastric region operative procedure, and fluid and presumed food material within the gastric lumen disallows accurate assessment of much of the gastric wall. No adjacent free fluid is found, however. The small bowel, and colon loops are normal in caliber and wall thickness. No free fluid or air. Nodes and vessels: No retroperitoneal or mesenteric adenopathy. Aorta and inferior vena cava are normal in caliber. Miscellaneous: No ventral hernias. PELVIS: Genitourinary: Bladder wall thickness is normal. Miscellaneous: No inguinal hernias or adenopathy. Bones: No suspicious bony lesions. No vertebral body compression fractures. IMPRESSION: No source of dizziness, nausea and vomiting is seen. Apparent prior esophagogastric junction region surgical intervention. Fluid and food material present within the gastric lumen disallows accurate visualization of portions of the gastric wall. No adjacent free fluid is seen, however. Throughout the remainder of the abdomen and pelvis no suspicious abnormality is found that would suggest source of current symptomatology. Dictated by: Christian Schuler M.D. on 10/30/2017 at 19:30 Approved by: Christian Schuler M.D. on 10/30/2017 at 19:34 PROCEDURE: CT HEAD/BRAIN WO CON INDICATIONS: DIZZY/HEADACHE TECHNIQUE: Noncontrast 4.5 mm thick angled axial sections acquired from the foramen magnum to the vertex, with coronal and sagittal reformats. For radiation dose reduction, the following was used: automated exposure control, adjustment of mA and/or kV according to patient size. COMPARISON: None. FINDINGS: Image quality: Excellent. CSF spaces: Basal cisterns are patent. No extra-axial fluid collections. The ventricles are symmetric in size and shape. Brain: No intracranial bleeds or masses. There is cerebral volume loss for age, with resultant ventricular and sulcal prominence. There are periventricular and deep white matter chronic small vessel ischemic changes. There is intracranial internal carotid artery atherosclerosis. Skull and face: Calvarium and visualized facial bones appear intact, without suspicious lesions. Sinuses: Visualized sinuses and mastoids are clear. IMPRESSION: No trauma found, source of current headache and vertigo is not seen. Dictated by: Christian Schuler M.D. on 10/30/2017 at 19:28 Approved by: Christian Schuler M.D. on 10/30/2017 at 19:29 Discharge Plan Discharge Plan Patient Disposition: Home, Self-Care Provider Discharge Instructions Diet: Regular Activity: As tolerated Oxygen: Room air Discharge Data Primary Care Provider: Kennedi Mora Attending Provider: Terrell Lilly V Admit Date/Time: 10/30/17 21:04 Quality VTE Deep Vein Thrombosis/Pulmonary Embolism Present on Admission: No
--- NOTE | 2017-11-03 10:34 | PC.NURSE ---
Addendum entered by Olga Brar R.N. 11/03/17 12:21: Patient DC'ed to personal vehicle with friend, via wheelchair. Patient all packed up, in personal clothes, DC instructions in hand with no remaining questions. 1 Narco 5mg administered prior to DC for pain pt reported of 3-08/08. Original Note: AM SHIFT Patient ambulating around room as SBA. Patient denies pain and dizziness. Spoke to patient about why she is feeling weak. Removed IV's, tolerated both well. Plans to call her friend for possible DC later today.
== END 2017-11-03 12:23 | disposition home or self-care (01) | DRG 391 ==
LOC: ED 20:46 → ICU 21:04 → AC 11-02 00:46
PROVIDERS: Nurse Practitioner Acute Care; Surgery; Admitting Provider Internal Medicine; Emergency Provider Emergency Medicine; PCP Internal Medicine; Visit Provider Internal Medicine
PROC: 0DJ08ZZ Inspection of Upper Intestinal Tract, Via Natural or Artificial Opening Endoscopic (ICD-10-PCS; CPT 43235; principal; 2017-10-31 15:00)
DX: K44.9 Diaphragmatic hernia without obstruction or gangrene (principal); K25.0 Acute gastric ulcer with hemorrhage; D62 Acute posthemorrhagic anemia; F11.20 Opioid dependence, uncomplicated; E03.9 Hypothyroidism, unspecified; F41.9 Anxiety disorder, unspecified; G47.00 Insomnia, unspecified; M48.061 Spinal stenosis, lumbar region without neurogenic claudication; F32.9 Major depressive disorder, single episode, unspecified
CPT/HCPCS: 36415; 36430; 36591; 43239; 51701; 70450; 71045; 74177; 80048; 80053; 81001; 82272; 82570; 83605; 83690; 83735; 83880; 84145; 84156; 84439; 84443; 84484; 85014; 85018; 85025; 85610; 85730; 86850; 86900; 86901; 87040; 87797; 88305; 88342; 93005; 96361; 96365; 96375; 97165; 99221; 99285; P9016; C9113; J0692; J1170; J2250; J2405; J3010; J3370

== ENCOUNTER 2017-11-09 04:58 | Inpatient (IN) | payer MEDICARE, OTHER, SELFPAY ==
[2017-10-30 22:06] VITALS: BMI 22.9
[2017-11-09] VITALS (22 sets, daily range): BP systolic 81–125; BP diastolic 41–85; PULSE 69–97; RESP 14–20; TEMP 36.3–37.5; O2SAT 92–98; BMI 21.3; BMI 21.2
--- NOTE | 2017-11-09 05:04 | ED.GIBLEED ---
HPI - GI Bleed <Renny Tolliver DO - Last Filed: 11/09/17 19:20> General Chief complaint: Abdominal Pain Stated complaint: Vomiting blood Time Seen by Provider: 11/09/17 05:00 Source: patient and family Mode of arrival: ambulatory Limitations: no limitations History of Present Illness HPI Narrative: 82-year-old female with history of upper GI bleed due to bleeding gastric ulcers presents to the emergency department with a family friend in the chief complaint large volume hematemesis this morning. Patient was recently admitted to the hospital for an upper GI bleed and had endoscopy noting kissing gastric ulcers. She was stabilized and discharged home and states that she has been passing the occasional dark stool since her discharge on November 03 but has become increasingly dizzy, short of breath and weak. This morning she had large episodes of emesis. She denies any blood thinners, alcohol use or other risk. She denies chest pain or abdominal pain. MD complaint: gross hematemesis and melena Onset (ago): hour(s) Severity: moderate Context: history of GI bleed Associated symptoms: nausea, vomiting, malaise, shortness of breath and weakness Related Data Home Medications Medication Instructions Recorded Confirmed latanoprost 1 drp OPHTH HS #0 12/30/16 11/09/17 escitalopram oxalate 20 mg PO HS #0 08/08/17 11/09/17 sennosides [senna] 8.6 mg PO QDAY #0 08/08/17 11/09/17 Previous Rx's Medication Instructions Recorded gabapentin 200 mg PO BID #10 cap 08/29/17 hydrocodone-acetaminophen 1 - 2 tab PO Q6HP PRN #14 tab MDD 6 08/29/17 levothyroxine [Synthroid] 50 mcg PO DAILY #30 tab 08/29/17 walker #1 each 08/29/17 pantoprazole 40 mg PO 0700,2100 30 Days #60 tab 11/03/17 Allergies Allergy/AdvReac Type Severity Reaction Status Date / Time penicillin V [PENICILLIN V] Allergy Severe rash Verified 10/30/17 18:34 latex [LATEX] Allergy Mild rash Verified 10/30/17 18:34 Review of Systems <DO Orlando Cummins Last Filed: 11/09/17 19:20> Review of Systems All systems reviewed & are unremarkable except as noted in HPI and below Constitutional Reports anorexia, Denies chills, Denies fever(s), Denies lethargy, Reports malaise and Reports weakness Eyes Denies change in vision, Denies eye discharge, Denies irritation and Denies loss of vision ENT Ears, Nose, Mouth, and Throat: Denies change in voice, Denies neck pain and Denies sore throat Cardiovascular Denies chest pain, Denies irregular heart rhythm, Denies lightheadedness, Denies palpitations, Reports dyspnea, Denies dyspnea on exertion and Denies orthopnea Respiratory Denies cough, Reports dyspnea, Denies dyspnea on exertion and Denies wheezing Gastrointestinal Gastrointestinal: Denies abdominal pain, Reports melena, Denies change in bowel habits, Denies diarrhea, Reports nausea and Reports vomiting Genitourinary Denies hematuria, Denies flank pain, Denies urinary incontinence and Denies urinary urgency Musculoskeletal Denies neck pain Integumentary/Breasts Denies pruritus, Denies erythema, Denies rash and Denies wounds Comments: Pale Neurologic Denies confusion, Denies loss of vision and Reports weakness Psychiatric Denies anxiety, Denies confusion, Denies depression, Denies homicidal ideation and Denies suicidal ideation Endocrine Denies palpitations Hematologic/Lymphatic Denies easy bruising Allergic/Immunologic Denies wheezing Exam <Renny Tolliver, DO - Last Filed: 11/09/17 19:20> Narrative Exam Narrative: Pleasant 82-year-old female appears unwell and in mild distress. Initial Vital Signs Initial Vital Signs: Vital Signs Temperature 97.3 F L 11/09/17 05:06 Pulse Rate 84 11/09/17 05:06 Respiratory Rate 20 11/09/17 05:06 Blood Pressure 108/56 L 11/09/17 05:06 Pulse Oximetry 98 11/09/17 05:06 Const General: cooperative, well developed and in distress Nutritional Appearance: well nourished and thin Orientation: alert, awake, oriented x3 and not confused [facility] Head: normal to inspection Ears: hearing grossly normal bilaterally Nose: external nose normal Face and sinus: normal facial exam Mouth: oral mucosae normal Teeth and gingiva: dentition normal Eyes Periorbital: periorbital findings normal Eyelids: eyelids normal Conjunctivae: conjunctival abnormality ([place]) bilaterally Neck Neck: normal visual inspection, trachea midline, No lymphadenopathy, No midline deformity and No JVD Lymphatic: No lymphedema Resp Effort & Inspection: normal respiratory effort, able to speak in complete sentences, no respiratory distress and no use of accessory muscles Auscultation: clear to auscultation bilaterally, no rales, no rhonchi and no wheezes GI Inspection: non-distended Palpation: soft, no hepatosplenomegaly, No guarding, No pulsatile mass and No tender Auscultation: normal bowel sounds Back/Spine/Pelvis Back: No CVA tenderness Cervical Spine: cervical ROM normal and No pain with cervical ROM Thoracic/Lumbar Spine: thoracic and lumbar spine normal to inspection Skin General: no rashes or lesions noted Lesions: no lesions Rashes: no rashes Other: Pale and clammy Neuro General: alert, oriented x3, gait normal and no focal motor deficits Speech: speech normal Extrem General: full ROM, no clubbing, cyanosis or edema, no pedal edema and no calf tenderness Psych Appearance: grossly normal, well kempt and not disheveled <Perry Jackson DO - Last Filed: 11/09/17 07:34> Initial Vital Signs Initial Vital Signs: Vital Signs Temperature 97.3 F L 11/09/17 05:06 Pulse Rate 84 11/09/17 05:06 Respiratory Rate 20 11/09/17 05:06 Blood Pressure 108/56 L 11/09/17 05:06 Pulse Oximetry 98 11/09/17 05:06 Course <Renny Tolliver DO - Last Filed: 11/09/17 19:20> Orders Ordered: ED Orders 11/09/17 11:44 Hemoglobin and Hematocrit Urgent 11/09/17 15:20 Complete Blood Count AUTO DIFF Urgent 11/09/17 20:00 Hemoglobin and Hematocrit Urgent 11/10/17 05:00 Basic Metabolic Panel Routine Complete Blood Count AUTO DIFF Routine Escitalopram Oxalate (Lexapro) 20 mg PO BEDTIME SYDNEE Gabapentin (Neurontin) 200 mg PO BID [facility] Hydromorphone HCl (Dilaudid) 0.5 mg IV Q4H PRN PRN Reason: Pain, Severe (7-10) Dextrose/Sodium Chloride (Dextrose 5%-0.45% Ns) 1,000 mls @ 100 mls/hr IV CONT SYDNEE Last Admin: 11/09/17 11:06 Dose: 100 mls/hr Latanoprost (Xalatan) 1 drops EYE-BOTH BEDTIME SYDNEE Levothyroxine Sodium (Synthroid) 50 mcg PO 0600 [facility] Non-Formulary Medication (Hydrocodone-Acetaminophen [Hydrocodone-Acetaminophen]) 1 tab PO Q6H PRN PRN Reason: Pain, Moderate (4-6) Ondansetron HCl (Zofran) 4 mg IV Q4HR PRN PRN Reason: Nausea And Vomiting Pantoprazole Sodium (Protonix) 40 mg IV BID [facility] Pantoprazole Sodium (Protonix) 40 mg PO 0700,2100 [facility] Sennosides (Senna) 8.6 mg PO DAILY [facility] Discontinued Medications Benzocaine/Butamben/Tetracaine HCl (Cetacaine [place]) 1 spray TOP NOW ONE Stop: 11/09/17 14:52 Last Admin: 11/09/17 14:54 Dose: 1 spray Epinephrine HCl (Adrenalin) 1 mg INJ NOW ONE Stop: 11/09/17 15:05 Last Admin: 11/09/17 14:38 Dose: 0.5 mg Fentanyl (Sublimaze) 250 mcg IV NOW ONE Stop: 11/09/17 14:52 Last Admin: 11/09/17 14:57 Dose: 100 mcg Lidocaine HCl (Lidocaine Hcl) 20 ml TOP NOW ONE Stop: 11/09/17 14:52 Last Admin: 11/09/17 14:52 Dose: 20 ml Midazolam HCl (Versed) 5 mg IV NOW ONE Stop: 11/09/17 14:52 Last Admin: 11/09/17 14:56 Dose: 3 mg Non-Formulary Medication (Hydrocodone-Acetaminophen [Hydrocodone-Acetaminophen]) 1 tab PO Q6HP PRN PRN Reason: Pain Ondansetron HCl (Zofran) 4 mg IV NOW ONE Stop: 11/09/17 05:04 Last Admin: 11/09/17 05:38 Dose: 4 mg Pantoprazole Sodium (Protonix) 40 mg IV NOW ONE Stop: 11/09/17 05:04 Last Admin: 11/09/17 05:37 Dose: 40 mg Reevaluation(s) Reevaluation #1: patient unchanged symptomatically but has a drop of BP to Vital Signs - 8 hr 11/09/17 11:49 11/09/17 14:50 11/09/17 15:30 Temperature 99 F 98.6 F 99 F Pulse Rate 82 97 H 87 Respiratory Rate 18 14 20 Blood Pressure 113/62 119/55 L 96/53 L Pulse Oximetry 97 94 92 11/09/17 16:00 11/09/17 17:01 11/09/17 18:04 Temperature 98.7 F 98.7 F Pulse Rate 84 76 76 Respiratory Rate 19 20 16 Blood Pressure 106/55 L 92/47 L 87/47 L Pulse Oximetry 97 96 97 <Perry Jackson, DO - Last Filed: 11/09/17 07:34> Orders Ordered: ED Orders 11/09/17 11:44 Hemoglobin and Hematocrit Urgent 11/09/17 15:20 Complete Blood Count AUTO DIFF Urgent 11/09/17 20:00 Hemoglobin and Hematocrit Urgent 11/10/17 05:00 Basic Metabolic Panel Routine Complete Blood Count AUTO DIFF Routine Escitalopram Oxalate (Lexapro) 20 mg PO BEDTIME SYDNEE Gabapentin (Neurontin) 200 mg PO BID [facility] Hydromorphone HCl (Dilaudid) 0.5 mg IV Q4H PRN PRN Reason: Pain, Severe (7-10) Dextrose/Sodium Chloride (Dextrose 5%-0.45% Ns) 1,000 mls @ 100 mls/hr IV CONT SYDNEE Last Admin: 11/09/17 11:06 Dose: 100 mls/hr Latanoprost (Xalatan) 1 drops EYE-BOTH BEDTIME [facility] Levothyroxine Sodium (Synthroid) 50 mcg PO 0600 [facility] Non-Formulary Medication (Hydrocodone-Acetaminophen [Hydrocodone-Acetaminophen]) 1 tab PO Q6H PRN PRN Reason: Pain, Moderate (4-6) Ondansetron HCl (Zofran) 4 mg IV Q4HR PRN PRN Reason: Nausea And Vomiting Pantoprazole Sodium (Protonix) 40 mg IV BID [facility] Pantoprazole Sodium (Protonix) 40 mg PO 0700,2100 [facility] Sennosides (Senna) 8.6 mg PO DAILY [facility] Discontinued Medications Benzocaine/Butamben/Tetracaine HCl (Cetacaine [place]) 1 spray TOP NOW ONE Stop: 11/09/17 14:52 Last Admin: 11/09/17 14:54 Dose: 1 spray Epinephrine HCl (Adrenalin) 1 mg INJ NOW ONE Stop: 11/09/17 15:05 Last Admin: 11/09/17 14:38 Dose: 0.5 mg Fentanyl (Sublimaze) 250 mcg IV NOW ONE Stop: 11/09/17 14:52 Last Admin: 11/09/17 14:57 Dose: 100 mcg Lidocaine HCl (Lidocaine Hcl) 20 ml TOP NOW ONE Stop: 11/09/17 14:52 Last Admin: 11/09/17 14:52 Dose: 20 ml Midazolam HCl (Versed) 5 mg IV NOW ONE Stop: 11/09/17 14:52 Last Admin: 11/09/17 14:56 Dose: 3 mg Non-Formulary Medication (Hydrocodone-Acetaminophen [Hydrocodone-Acetaminophen]) 1 tab PO Q6HP PRN PRN Reason: Pain Ondansetron HCl (Zofran) 4 mg IV NOW ONE Stop: 11/09/17 05:04 Last Admin: 11/09/17 05:38 Dose: 4 mg Pantoprazole Sodium (Protonix) 40 mg IV NOW ONE Stop: 11/09/17 05:04 Last Admin: 11/09/17 05:37 Dose: 40 mg Vital Signs - 8 hr 11/09/17 11:49 11/09/17 14:50 11/09/17 15:30 Temperature 99 F 98.6 F 99 F Pulse Rate 82 97 H 87 Respiratory Rate 18 14 20 Blood Pressure 113/62 119/55 L 96/53 L Pulse Oximetry 97 94 92 11/09/17 16:00 11/09/17 17:01 11/09/17 18:04 Temperature 98.7 F 98.7 F Pulse Rate 84 76 76 Respiratory Rate 19 20 16 Blood Pressure 106/55 L 92/47 L 87/47 L Pulse Oximetry 97 96 97 MDM - GI Bleed <Renny Tolliver DO - Last Filed: 11/09/17 19:20> Lab Data Result diagrams: 11/09/17 15:20 11/09/17 05:30 Lab Results 11/09/17 11/09/17 11/09/17 Range/Units 05:30 05:30 05:30 WBC 6.1 (4.5-11.0) X10^3/uL RBC 1.86 L (4.0-5.2) X10^6/uL Hgb 5.9 L* (12.0-16.0) g/dL Hct 18.0 L* (36-46) % MCV 96.5 D (80-100) fL MCH 31.7 (26-34) PG MCHC 32.9 (30-36) % RDW 20.8 H (11.6-14.8) % Plt Count 179 (150-400) X10^3/uL Neut % (Auto) 78.9 H (50-75) % Lymph % (Auto) 9.7 L (25-40) % [place] % (Auto) 7.6 (3-14) % Eos % (Auto) 2.5 (2-4) % Baso % (Auto) 1.3 (0-2) % Neut # (Auto) 4800 (4915-2258) /uL RBC Morphology Not Reportable Polychromasia 1+ H Anisocytosis 1+ H PT 11.3 (10.1-12.7) SECONDS INR 1.0 (0.9-1.3) APTT 23 L D (26.4-36.2) SECONDS Sodium 140 (137-145) mmol/L Potassium 4.3 (3.4-5.1) mmol/L Chloride 103 (98-107) mmol/L Carbon Dioxide 28 (22-32) mmol/L BUN 24 H (7-17) mg/dL Creatinine 0.60 (0.52-1.04) mg/dL Estimated GFR > 60.0 (>60) mL/min BUN/Creatinine Ratio 40.0 H (6-22) Glucose 124 H (80-110) mg/dL Calcium 7.4 L (8.4-10.2) mg/dL Total Bilirubin 0.2 (0.2-1.3) mg/dL AST 22 (14-36) IU/L ALT 18 (9-52) IU/L Alkaline Phosphatase 38 (38-126) U/L Total Protein 5.6 L (6.3-8.2) g/dL Albumin 3.3 L (3.5-5.0) g/dL Globulin 2.3 (1.7-4.1) g/dL Albumin/Globulin Ratio 1.4 (1.0-2.8) Nasal Screen MRSA (PCR) (Negative) Blood Type Rho(D) Type Antibody Screen Crossmatch 11/09/17 11/09/17 11/09/17 Range/Units 05:30 05:30 08:00 WBC (4.5-11.0) X10^3/uL RBC (4.0-5.2) X10^6/uL Hgb (12.0-16.0) g/dL Hct (36-46) % MCV (80-100) fL MCH (26-34) PG MCHC (30-36) % RDW (11.6-14.8) % Plt Count (150-400) X10^3/uL Neut % (Auto) (50-75) % Lymph % (Auto) (25-40) % [place] % (Auto) (3-14) % Eos % (Auto) (2-4) % Baso % (Auto) (0-2) % Neut # (Auto) (5274-4917) /uL RBC Morphology Polychromasia Anisocytosis PT (10.1-12.7) SECONDS INR (0.9-1.3) APTT (26.4-36.2) SECONDS Sodium (137-145) mmol/L Potassium (3.4-5.1) mmol/L Chloride (98-107) mmol/L Carbon Dioxide (22-32) mmol/L BUN (7-17) mg/dL Creatinine (0.52-1.04) mg/dL Estimated GFR (>60) mL/min BUN/Creatinine Ratio (6-22) Glucose (80-110) mg/dL Calcium (8.4-10.2) mg/dL Total Bilirubin (0.2-1.3) mg/dL AST (14-36) IU/L ALT (9-52) IU/L Alkaline Phosphatase (38-126) U/L Total Protein (6.3-8.2) g/dL Albumin (3.5-5.0) g/dL Globulin (1.7-4.1) g/dL Albumin/Globulin Ratio (1.0-2.8) Nasal Screen MRSA (PCR) Negative for mrsa (Negative) Blood Type Cancelled A Positive Rho(D) Type Cancelled Antibody Screen Cancelled Negative Crossmatch See Detail 11/09/17 11/09/17 Range/Units 11:44 15:20 WBC 7.3 (4.5-11.0) X10^3/uL RBC 3.00 L (4.0-5.2) X10^6/uL Hgb 8.8 L 9.4 L (12.0-16.0) g/dL Hct 25.6 L 27.9 L (36-46) % MCV 93.0 D (80-100) fL MCH 31.5 (26-34) PG MCHC 33.8 (30-36) % RDW 17.6 H (11.6-14.8) % Plt Count 171 (150-400) X10^3/uL Neut % (Auto) 66.5 (50-75) % Lymph % (Auto) 23.8 L (25-40) % [place] % (Auto) 8.1 (3-14) % Eos % (Auto) 0.8 L (2-4) % Baso % (Auto) 0.8 (0-2) % Neut # (Auto) 4800 (0031-9494) /uL RBC Morphology Polychromasia Anisocytosis PT (10.1-12.7) SECONDS INR (0.9-1.3) APTT (26.4-36.2) SECONDS Sodium (137-145) mmol/L Potassium (3.4-5.1) mmol/L Chloride (98-107) mmol/L Carbon Dioxide (22-32) mmol/L BUN (7-17) mg/dL Creatinine (0.52-1.04) mg/dL Estimated GFR (>60) mL/min BUN/Creatinine Ratio (6-22) Glucose (80-110) mg/dL Calcium (8.4-10.2) mg/dL Total Bilirubin (0.2-1.3) mg/dL AST (14-36) IU/L ALT (9-52) IU/L Alkaline Phosphatase (38-126) U/L Total Protein (6.3-8.2) g/dL Albumin (3.5-5.0) g/dL Globulin (1.7-4.1) g/dL Albumin/Globulin Ratio (1.0-2.8) Nasal Screen MRSA (PCR) (Negative) Blood Type Rho(D) Type Antibody Screen Crossmatch <Perry Jackson, - Last Filed: 11/09/17 07:34> Lab Data Lab Results 11/09/17 11/09/17 11/09/17 Range/Units 05:30 05:30 05:30 WBC 6.1 (4.5-11.0) X10^3/uL RBC 1.86 L (4.0-5.2) X10^6/uL Hgb 5.9 L* (12.0-16.0) g/dL Hct 18.0 L* (36-46) % MCV 96.5 D (80-100) fL MCH 31.7 (26-34) PG MCHC 32.9 (30-36) % RDW 20.8 H (11.6-14.8) % Plt Count 179 (150-400) X10^3/uL Neut % (Auto) 78.9 H (50-75) % Lymph % (Auto) 9.7 L (25-40) % [place] % (Auto) 7.6 (3-14) % Eos % (Auto) 2.5 (2-4) % Baso % (Auto) 1.3 (0-2) % Neut # (Auto) 4800 (9724-1365) /uL RBC Morphology Not Reportable Polychromasia 1+ H Anisocytosis 1+ H PT 11.3 (10.1-12.7) SECONDS INR 1.0 (0.9-1.3) APTT 23 L D (26.4-36.2) SECONDS Sodium 140 (137-145) mmol/L Potassium 4.3 (3.4-5.1) mmol/L Chloride 103 (98-107) mmol/L Carbon Dioxide 28 (22-32) mmol/L BUN 24 H (7-17) mg/dL Creatinine 0.60 (0.52-1.04) mg/dL Estimated GFR > 60.0 (>60) mL/min BUN/Creatinine Ratio 40.0 H (6-22) Glucose 124 H (80-110) mg/dL Calcium 7.4 L (8.4-10.2) mg/dL Total Bilirubin 0.2 (0.2-1.3) mg/dL AST 22 (14-36) IU/L ALT 18 (9-52) IU/L Alkaline Phosphatase 38 (38-126) U/L Total Protein 5.6 L (6.3-8.2) g/dL Albumin 3.3 L (3.5-5.0) g/dL Globulin 2.3 (1.7-4.1) g/dL Albumin/Globulin Ratio 1.4 (1.0-2.8) Nasal Screen MRSA (PCR) (Negative) Blood Type Rho(D) Type Antibody Screen Crossmatch 11/09/17 11/09/17 11/09/17 Range/Units 05:30 05:30 08:00 WBC (4.5-11.0) X10^3/uL RBC (4.0-5.2) X10^6/uL Hgb (12.0-16.0) g/dL Hct (36-46) % MCV (80-100) fL MCH (26-34) PG MCHC (30-36) % RDW (11.6-14.8) % Plt Count (150-400) X10^3/uL Neut % (Auto) (50-75) % Lymph % (Auto) (25-40) % [place] % (Auto) (3-14) % Eos % (Auto) (2-4) % Baso % (Auto) (0-2) % Neut # (Auto) (9359-0514) /uL RBC Morphology Polychromasia Anisocytosis PT (10.1-12.7) SECONDS INR (0.9-1.3) APTT (26.4-36.2) SECONDS Sodium (137-145) mmol/L Potassium (3.4-5.1) mmol/L Chloride (98-107) mmol/L Carbon Dioxide (22-32) mmol/L BUN (7-17) mg/dL Creatinine (0.52-1.04) mg/dL Estimated GFR (>60) mL/min BUN/Creatinine Ratio (6-22) Glucose (80-110) mg/dL Calcium (8.4-10.2) mg/dL Total Bilirubin (0.2-1.3) mg/dL AST (14-36) IU/L ALT (9-52) IU/L Alkaline Phosphatase (38-126) U/L Total Protein (6.3-8.2) g/dL Albumin (3.5-5.0) g/dL Globulin (1.7-4.1) g/dL Albumin/Globulin Ratio (1.0-2.8) Nasal Screen MRSA (PCR) Negative for mrsa (Negative) Blood Type Cancelled A Positive Rho(D) Type Cancelled Antibody Screen Cancelled Negative Crossmatch See Detail 07/12/18 07/12/18 Range/Units 11:44 15:20 WBC 7.3 (4.5-11.0) X10^3/uL RBC 3.00 L (4.0-5.2) X10^6/uL Hgb 8.8 L 9.4 L (12.0-16.0) g/dL Hct 25.6 L 27.9 L (36-46) % MCV 93.0 D (80-100) fL MCH 31.5 (26-34) PG MCHC 33.8 (30-36) % RDW 17.6 H (11.6-14.8) % Plt Count 171 (150-400) X10^3/uL Neut % (Auto) 66.5 (50-75) % Lymph % (Auto) 23.8 L (25-40) % [place] % (Auto) 8.1 (3-14) % Eos % (Auto) 0.8 L (2-4) % Baso % (Auto) 0.8 (0-2) % Neut # (Auto) 4800 (3654-8474) /uL RBC Morphology Polychromasia Anisocytosis PT (10.1-12.7) SECONDS INR (0.9-1.3) APTT (26.4-36.2) SECONDS Sodium (137-145) mmol/L Potassium (3.4-5.1) mmol/L Chloride (98-107) mmol/L Carbon Dioxide (22-32) mmol/L BUN (7-17) mg/dL Creatinine (0.52-1.04) mg/dL Estimated GFR (>60) mL/min BUN/Creatinine Ratio (6-22) Glucose (80-110) mg/dL Calcium (8.4-10.2) mg/dL Total Bilirubin (0.2-1.3) mg/dL AST (14-36) IU/L ALT (9-52) IU/L Alkaline Phosphatase (38-126) U/L Total Protein (6.3-8.2) g/dL Albumin (3.5-5.0) g/dL Globulin (1.7-4.1) g/dL Albumin/Globulin Ratio (1.0-2.8) Nasal Screen MRSA (PCR) (Negative) Blood Type Rho(D) Type Antibody Screen Crossmatch [facility] Narrative Medical decision making narrative: Dr Jackson : received turned over from patient. Patient continues to be in the emergency department well a bed is being made available in the ICU. Night provider has already arranged admission and spoke with the hospitalist. Patient is receiving blood. Blood pressure continues to be in the mid to high 80s with a mean arterial pressure in the mid 50s. Increase the rate of the blood transfusions secondary to this. Patient will be transported to ICU when bed is available. Discharge Plan Departure Patient Disposition: Admitted As Inpatient Clinical Impression: Acute upper GI bleed Discharge Date/Time: 11/09/17 07:55 Interventions: ED Discharge Assessment Last Done: 11/09/17 08:03 Admit Date/Time: 11/09/17 06:41 Admit Provider: Kennedi Mora
--- NOTE | 2017-11-09 05:28 | ED_ITS ---
HPI - GI Bleed <Renny Tolliver DO - Last Filed: 11/09/17 19:20> General Chief complaint: Abdominal Pain Stated complaint: Vomiting blood Time Seen by Provider: 11/09/17 05:00 Source: patient and family Mode of arrival: ambulatory Limitations: no limitations History of Present Illness HPI Narrative: 82-year-old female with history of upper GI bleed due to bleeding gastric ulcers presents to the emergency department with a family friend in the chief complaint large volume hematemesis this morning. Patient was recently admitted to the hospital for an upper GI bleed and had endoscopy noting kissing gastric ulcers. She was stabilized and discharged home and states that she has been passing the occasional dark stool since her discharge on November 03 but has become increasingly dizzy, short of breath and weak. This morning she had large episodes of emesis. She denies any blood thinners, alcohol use or other risk. She denies chest pain or abdominal pain. MD complaint: gross hematemesis and melena Onset (ago): hour(s) Severity: moderate Context: history of GI bleed Associated symptoms: nausea, vomiting, malaise, shortness of breath and weakness Related Data Home Medications Medication Instructions Recorded Confirmed latanoprost 1 drp OPHTH HS #0 12/30/16 11/09/17 escitalopram oxalate 20 mg PO HS #0 08/08/17 11/09/17 sennosides [senna] 8.6 mg PO QDAY #0 08/08/17 11/09/17 Previous Rx's Medication Instructions Recorded gabapentin 200 mg PO BID #10 cap 08/29/17 hydrocodone-acetaminophen 1 - 2 tab PO Q6HP PRN #14 tab MDD 6 08/29/17 levothyroxine [Synthroid] 50 mcg PO DAILY #30 tab 08/29/17 walker #1 each 08/29/17 pantoprazole 40 mg PO 0700,2100 30 Days #60 tab 11/03/17 Allergies Allergy/AdvReac Type Severity Reaction Status Date / Time penicillin V [PENICILLIN V] Allergy Severe rash Verified 10/30/17 18:34 latex [LATEX] Allergy Mild rash Verified 10/30/17 18:34 Review of Systems <DO Orlando Cummins Last Filed: 11/09/17 19:20> Review of Systems All systems reviewed & are unremarkable except as noted in HPI and below Constitutional Reports anorexia, Denies chills, Denies fever(s), Denies lethargy, Reports malaise and Reports weakness Eyes Denies change in vision, Denies eye discharge, Denies irritation and Denies loss of vision ENT Ears, Nose, Mouth, and Throat: Denies change in voice, Denies neck pain and Denies sore throat Cardiovascular Denies chest pain, Denies irregular heart rhythm, Denies lightheadedness, Denies palpitations, Reports dyspnea, Denies dyspnea on exertion and Denies orthopnea Respiratory Denies cough, Reports dyspnea, Denies dyspnea on exertion and Denies wheezing Gastrointestinal Gastrointestinal: Denies abdominal pain, Reports melena, Denies change in bowel habits, Denies diarrhea, Reports nausea and Reports vomiting Genitourinary Denies hematuria, Denies flank pain, Denies urinary incontinence and Denies urinary urgency Musculoskeletal Denies neck pain Integumentary/Breasts Denies pruritus, Denies erythema, Denies rash and Denies wounds Comments: Pale Neurologic Denies confusion, Denies loss of vision and Reports weakness Psychiatric Denies anxiety, Denies confusion, Denies depression, Denies homicidal ideation and Denies suicidal ideation Endocrine Denies palpitations Hematologic/Lymphatic Denies easy bruising Allergic/Immunologic Denies wheezing Exam <Renny Tolliver, DO - Last Filed: 11/09/17 19:20> Narrative Exam Narrative: Pleasant 82-year-old female appears unwell and in mild distress. Initial Vital Signs Initial Vital Signs: Vital Signs Temperature 97.3 F L 11/09/17 05:06 Pulse Rate 84 11/09/17 05:06 Respiratory Rate 20 11/09/17 05:06 Blood Pressure 108/56 L 11/09/17 05:06 Pulse Oximetry 98 11/09/17 05:06 Const General: cooperative, well developed and in distress Nutritional Appearance: well nourished and thin Orientation: alert, awake, oriented x3 and not confused [facility] Head: normal to inspection Ears: hearing grossly normal bilaterally Nose: external nose normal Face and sinus: normal facial exam Mouth: oral mucosae normal Teeth and gingiva: dentition normal Eyes Periorbital: periorbital findings normal Eyelids: eyelids normal Conjunctivae: conjunctival abnormality ([place]) bilaterally Neck Neck: normal visual inspection, trachea midline, No lymphadenopathy, No midline deformity and No JVD Lymphatic: No lymphedema Resp Effort & Inspection: normal respiratory effort, able to speak in complete sentences, no respiratory distress and no use of accessory muscles Auscultation: clear to auscultation bilaterally, no rales, no rhonchi and no wheezes GI Inspection: non-distended Palpation: soft, no hepatosplenomegaly, No guarding, No pulsatile mass and No tender Auscultation: normal bowel sounds Back/Spine/Pelvis Back: No CVA tenderness Cervical Spine: cervical ROM normal and No pain with cervical ROM Thoracic/Lumbar Spine: thoracic and lumbar spine normal to inspection Skin General: no rashes or lesions noted Lesions: no lesions Rashes: no rashes Other: Pale and clammy Neuro General: alert, oriented x3, gait normal and no focal motor deficits Speech: speech normal Extrem General: full ROM, no clubbing, cyanosis or edema, no pedal edema and no calf tenderness Psych Appearance: grossly normal, well kempt and not disheveled <Perry Jackson DO - Last Filed: 11/09/17 07:34> Initial Vital Signs Initial Vital Signs: Vital Signs Temperature 97.3 F L 11/09/17 05:06 Pulse Rate 84 11/09/17 05:06 Respiratory Rate 20 11/09/17 05:06 Blood Pressure 108/56 L 11/09/17 05:06 Pulse Oximetry 98 11/09/17 05:06 Course <Renny oTlliver DO - Last Filed: 11/09/17 19:20> Orders Ordered: ED Orders 11/09/17 11:44 Hemoglobin and Hematocrit Urgent 11/09/17 15:20 Complete Blood Count AUTO DIFF Urgent 11/09/17 20:00 Hemoglobin and Hematocrit Urgent 11/10/17 05:00 Basic Metabolic Panel Routine Complete Blood Count AUTO DIFF Routine Escitalopram Oxalate (Lexapro) 20 mg PO BEDTIME SY[facility] Gabapentin (Neurontin) 200 mg PO BID [facility] Hydromorphone HCl (Dilaudid) 0.5 mg IV Q4H PRN PRN Reason: Pain, Severe (7-10) Dextrose/Sodium Chloride (Dextrose 5%-0.45% Ns) 1,000 mls @ 100 mls/hr IV CONT SYDNEE Last Admin: 11/09/17 11:06 Dose: 100 mls/hr Latanoprost (Xalatan) 1 drops EYE-BOTH BEDTIME [facility] Levothyroxine Sodium (Synthroid) 50 mcg PO 0600 [facility] Non-Formulary Medication (Hydrocodone-Acetaminophen [Hydrocodone-Acetaminophen] ) 1 tab PO Q6H PRN PRN Reason: Pain, Moderate (4-6) Ondansetron HCl (Zofran) 4 mg IV Q4HR PRN PRN Reason: Nausea And Vomiting Pantoprazole Sodium (Protonix) 40 mg IV BID [facility] Pantoprazole Sodium (Protonix) 40 mg PO 0700,2100 [facility] Sennosides (Senna) 8.6 mg PO DAILY [facility] Discontinued Medications Benzocaine/Butamben/Tetracaine HCl (Cetacaine Strawberry) 1 spray TOP NOW ONE Stop: 11/09/17 14:52 Last Admin: 11/09/17 14:54 Dose: 1 spray Epinephrine HCl (Adrenalin) 1 mg INJ NOW ONE Stop: 11/09/17 15:05 Last Admin: 11/09/17 14:38 Dose: 0.5 mg Fentanyl (Sublimaze) 250 mcg IV NOW ONE Stop: 11/09/17 14:52 Last Admin: 11/09/17 14:57 Dose: 100 mcg Lidocaine HCl (Lidocaine Hcl) 20 ml TOP NOW ONE Stop: 11/09/17 14:52 Last Admin: 11/09/17 14:52 Dose: 20 ml Midazolam HCl (Versed) 5 mg IV NOW ONE Stop: 11/09/17 14:52 Last Admin: 11/09/17 14:56 Dose: 3 mg Non-Formulary Medication (Hydrocodone-Acetaminophen [Hydrocodone-Acetaminophen] ) 1 tab PO Q6HP PRN PRN Reason: Pain Ondansetron HCl (Zofran) 4 mg IV NOW ONE Stop: 11/09/17 05:04 Last Admin: 11/09/17 05:38 Dose: 4 mg Pantoprazole Sodium (Protonix) 40 mg IV NOW ONE Stop: 11/09/17 05:04 Last Admin: 11/09/17 05:37 Dose: 40 mg Reevaluation(s) Reevaluation #1: patient unchanged symptomatically but has a drop of BP to Vital Signs - 8 hr 11/09/17 11:49 11/09/17 14:50 11/09/17 15:30 Temperature 99 F 98.6 F 99 F Pulse Rate 82 97 H 87 Respiratory Rate 18 14 20 Blood Pressure 113/62 119/55 L 96/53 L Pulse Oximetry 97 94 92 11/09/17 16:00 11/09/17 17:01 11/09/17 18:04 Temperature 98.7 F 98.7 F Pulse Rate 84 76 76 Respiratory Rate 19 20 16 Blood Pressure 106/55 L 92/47 L 87/47 L Pulse Oximetry 97 96 97 <Perry Jackson, DO - Last Filed: 11/09/17 07:34> Orders Ordered: ED Orders 11/09/17 11:44 Hemoglobin and Hematocrit Urgent 11/09/17 15:20 Complete Blood Count AUTO DIFF Urgent 11/09/17 20:00 Hemoglobin and Hematocrit Urgent 11/10/17 05:00 Basic Metabolic Panel Routine Complete Blood Count AUTO DIFF Routine Escitalopram Oxalate (Lexapro) 20 mg PO BEDTIME SYDN[facility] Gabapentin (Neurontin) 200 mg PO BID [facility] Hydromorphone HCl (Dilaudid) 0.5 mg IV Q4H PRN PRN Reason: Pain, Severe (7-10) Dextrose/Sodium Chloride (Dextrose 5%-0.45% Ns) 1,000 mls @ 100 mls/hr IV CONT SYDNEE Last Admin: 11/09/17 11:06 Dose: 100 mls/hr Latanoprost (Xalatan) 1 drops EYE-BOTH BEDTIME [facility] Levothyroxine Sodium (Synthroid) 50 mcg PO 0600 [facility] Non-Formulary Medication (Hydrocodone-Acetaminophen [Hydrocodone-Acetaminophen] ) 1 tab PO Q6H PRN PRN Reason: Pain, Moderate (4-6) Ondansetron HCl (Zofran) 4 mg IV Q4HR PRN PRN Reason: Nausea And Vomiting Pantoprazole Sodium (Protonix) 40 mg IV BID [facility] Pantoprazole Sodium (Protonix) 40 mg PO 0700,2100 [facility] Sennosides (Senna) 8.6 mg PO DAILY [facility] Discontinued Medications Benzocaine/Butamben/Tetracaine HCl (Cetacaine Strawberry) 1 spray TOP NOW ONE Stop: 11/09/17 14:52 Last Admin: 11/09/17 14:54 Dose: 1 spray Epinephrine HCl (Adrenalin) 1 mg INJ NOW ONE Stop: 11/09/17 15:05 Last Admin: 11/09/17 14:38 Dose: 0.5 mg Fentanyl (Sublimaze) 250 mcg IV NOW ONE Stop: 11/09/17 14:52 Last Admin: 11/09/17 14:57 Dose: 100 mcg Lidocaine HCl (Lidocaine Hcl) 20 ml TOP NOW ONE Stop: 11/09/17 14:52 Last Admin: 11/09/17 14:52 Dose: 20 ml Midazolam HCl (Versed) 5 mg IV NOW ONE Stop: 11/09/17 14:52 Last Admin: 11/09/17 14:56 Dose: 3 mg Non-Formulary Medication (Hydrocodone-Acetaminophen [Hydrocodone-Acetaminophen] ) 1 tab PO Q6HP PRN PRN Reason: Pain Ondansetron HCl (Zofran) 4 mg IV NOW ONE Stop: 11/09/17 05:04 Last Admin: 11/09/17 05:38 Dose: 4 mg Pantoprazole Sodium (Protonix) 40 mg IV NOW ONE Stop: 11/09/17 05:04 Last Admin: 11/09/17 05:37 Dose: 40 mg Vital Signs - 8 hr 11/09/17 11:49 11/09/17 14:50 11/09/17 15:30 Temperature 99 F 98.6 F 99 F Pulse Rate 82 97 H 87 Respiratory Rate 18 14 20 Blood Pressure 113/62 119/55 L 96/53 L Pulse Oximetry 97 94 92 11/09/17 16:00 11/09/17 17:01 11/09/17 18:04 Temperature 98.7 F 98.7 F Pulse Rate 84 76 76 Respiratory Rate 19 20 16 Blood Pressure 106/55 L 92/47 L 87/47 L Pulse Oximetry 97 96 97 MDM - GI Bleed <Renny Tolliver DO - Last Filed: 11/09/17 19:20> Lab Data Result diagrams: 11/09/17 15:20 11/09/17 05:30 Lab Results 11/09/17 11/09/17 11/09/17 Range/Units 05:30 05:30 05:30 WBC 6.1 (4.5-11.0) X10^3/uL RBC 1.86 L (4.0-5.2) X10^6/uL Hgb 5.9 L* (12.0-16.0) g/dL Hct 18.0 L* (36-46) % MCV 96.5 D (80-100) fL MCH 31.7 (26-34) PG MCHC 32.9 (30-36) % RDW 20.8 H (11.6-14.8) % Plt Count 179 (150-400) X10^3/uL Neut % (Auto) 78.9 H (50-75) % Lymph % (Auto) 9.7 L (25-40) % [place] % (Auto) 7.6 (3-14) % Eos % (Auto) 2.5 (2-4) % Baso % (Auto) 1.3 (0-2) % Neut # (Auto) 4800 (0881-0522) /uL RBC Morphology Not Reportable Polychromasia 1+ H Anisocytosis 1+ H PT 11.3 (10.1-12.7) SECONDS INR 1.0 (0.9-1.3) APTT 23 L D (26.4-36.2) SECONDS Sodium 140 (137-145) mmol/L Potassium 4.3 (3.4-5.1) mmol/L Chloride 103 (98-107) mmol/L Carbon Dioxide 28 (22-32) mmol/L BUN 24 H (7-17) mg/dL Creatinine 0.60 (0.52-1.04) mg/dL Estimated GFR > 60.0 (>60) mL/min BUN/Creatinine Ratio 40.0 H (6-22) Glucose 124 H (80-110) mg/dL Calcium 7.4 L (8.4-10.2) mg/dL Total Bilirubin 0.2 (0.2-1.3) mg/dL AST 22 (14-36) IU/L ALT 18 (9-52) IU/L Alkaline Phosphatase 38 (38-126) U/L Total Protein 5.6 L (6.3-8.2) g/dL Albumin 3.3 L (3.5-5.0) g/dL Globulin 2.3 (1.7-4.1) g/dL Albumin/Globulin Ratio 1.4 (1.0-2.8) Nasal Screen MRSA (PCR) (Negative) Blood Type Rho(D) Type Antibody Screen Crossmatch 11/09/17 11/09/17 11/09/17 Range/Units 05:30 05:30 08:00 WBC (4.5-11.0) X10^3/uL RBC (4.0-5.2) X10^6/uL Hgb (12.0-16.0) g/dL Hct (36-46) % MCV (80-100) fL MCH (26-34) PG MCHC (30-36) % RDW (11.6-14.8) % Plt Count (150-400) X10^3/uL Neut % (Auto) (50-75) % Lymph % (Auto) (25-40) % [place] % (Auto) (3-14) % Eos % (Auto) (2-4) % Baso % (Auto) (0-2) % Neut # (Auto) (2546-4250) /uL RBC Morphology Polychromasia Anisocytosis PT (10.1-12.7) SECONDS INR (0.9-1.3) APTT (26.4-36.2) SECONDS Sodium (137-145) mmol/L Potassium (3.4-5.1) mmol/L Chloride (98-107) mmol/L Carbon Dioxide (22-32) mmol/L BUN (7-17) mg/dL Creatinine (0.52-1.04) mg/dL Estimated GFR (>60) mL/min BUN/Creatinine Ratio (6-22) Glucose (80-110) mg/dL Calcium (8.4-10.2) mg/dL Total Bilirubin (0.2-1.3) mg/dL AST (14-36) IU/L ALT (9-52) IU/L Alkaline Phosphatase (38-126) U/L Total Protein (6.3-8.2) g/dL Albumin (3.5-5.0) g/dL Globulin (1.7-4.1) g/dL Albumin/Globulin Ratio (1.0-2.8) Nasal Screen MRSA (PCR) Negative for mrsa (Negative) Blood Type Cancelled A Positive Rho(D) Type Cancelled Antibody Screen Cancelled Negative Crossmatch See Detail 11/09/17 11/09/17 Range/Units 11:44 15:20 WBC 7.3 (4.5-11.0) X10^3/uL RBC 3.00 L (4.0-5.2) X10^6/uL Hgb 8.8 L 9.4 L (12.0-16.0) g/dL Hct 25.6 L 27.9 L (36-46) % MCV 93.0 D (80-100) fL MCH 31.5 (26-34) PG MCHC 33.8 (30-36) % RDW 17.6 H (11.6-14.8) % Plt Count 171 (150-400) X10^3/uL Neut % (Auto) 66.5 (50-75) % Lymph % (Auto) 23.8 L (25-40) % [place] % (Auto) 8.1 (3-14) % Eos % (Auto) 0.8 L (2-4) % Baso % (Auto) 0.8 (0-2) % Neut # (Auto) 4800 (2193-6151) /uL RBC Morphology Polychromasia Anisocytosis PT (10.1-12.7) SECONDS INR (0.9-1.3) APTT (26.4-36.2) SECONDS Sodium (137-145) mmol/L Potassium (3.4-5.1) mmol/L Chloride (98-107) mmol/L Carbon Dioxide (22-32) mmol/L BUN (7-17) mg/dL Creatinine (0.52-1.04) mg/dL Estimated GFR (>60) mL/min BUN/Creatinine Ratio (6-22) Glucose (80-110) mg/dL Calcium (8.4-10.2) mg/dL Total Bilirubin (0.2-1.3) mg/dL AST (14-36) IU/L ALT (9-52) IU/L Alkaline Phosphatase (38-126) U/L Total Protein (6.3-8.2) g/dL Albumin (3.5-5.0) g/dL Globulin (1.7-4.1) g/dL Albumin/Globulin Ratio (1.0-2.8) Nasal Screen MRSA (PCR) (Negative) Blood Type Rho(D) Type Antibody Screen Crossmatch <Perry Jackson, - Last Filed: 11/09/17 07:34> Lab Data Lab Results 11/09/17 11/09/17 11/09/17 Range/Units 05:30 05:30 05:30 WBC 6.1 (4.5-11.0) X10^3/uL RBC 1.86 L (4.0-5.2) X10^6/uL Hgb 5.9 L* (12.0-16.0) g/dL Hct 18.0 L* (36-46) % MCV 96.5 D (80-100) fL MCH 31.7 (26-34) PG MCHC 32.9 (30-36) % RDW 20.8 H (11.6-14.8) % Plt Count 179 (150-400) X10^3/uL Neut % (Auto) 78.9 H (50-75) % Lymph % (Auto) 9.7 L (25-40) % [place] % (Auto) 7.6 (3-14) % Eos % (Auto) 2.5 (2-4) % Baso % (Auto) 1.3 (0-2) % Neut # (Auto) 4800 (0882-2601) /uL RBC Morphology Not Reportable Polychromasia 1+ H Anisocytosis 1+ H PT 11.3 (10.1-12.7) SECONDS INR 1.0 (0.9-1.3) APTT 23 L D (26.4-36.2) SECONDS Sodium 140 (137-145) mmol/L Potassium 4.3 (3.4-5.1) mmol/L Chloride 103 (98-107) mmol/L Carbon Dioxide 28 (22-32) mmol/L BUN 24 H (7-17) mg/dL Creatinine 0.60 (0.52-1.04) mg/dL Estimated GFR > 60.0 (>60) mL/min BUN/Creatinine Ratio 40.0 H (6-22) Glucose 124 H (80-110) mg/dL Calcium 7.4 L (8.4-10.2) mg/dL Total Bilirubin 0.2 (0.2-1.3) mg/dL AST 22 (14-36) IU/L ALT 18 (9-52) IU/L Alkaline Phosphatase 38 (38-126) U/L Total Protein 5.6 L (6.3-8.2) g/dL Albumin 3.3 L (3.5-5.0) g/dL Globulin 2.3 (1.7-4.1) g/dL Albumin/Globulin Ratio 1.4 (1.0-2.8) Nasal Screen MRSA (PCR) (Negative) Blood Type Rho(D) Type Antibody Screen Crossmatch 11/09/17 11/09/17 11/09/17 Range/Units 05:30 05:30 08:00 WBC (4.5-11.0) X10^3/uL RBC (4.0-5.2) X10^6/uL Hgb (12.0-16.0) g/dL Hct (36-46) % MCV (80-100) fL MCH (26-34) PG MCHC (30-36) % RDW (11.6-14.8) % Plt Count (150-400) X10^3/uL Neut % (Auto) (50-75) % Lymph % (Auto) (25-40) % [place] % (Auto) (3-14) % Eos % (Auto) (2-4) % Baso % (Auto) (0-2) % Neut # (Auto) (9720-1683) /uL RBC Morphology Polychromasia Anisocytosis PT (10.1-12.7) SECONDS INR (0.9-1.3) APTT (26.4-36.2) SECONDS Sodium (137-145) mmol/L Potassium (3.4-5.1) mmol/L Chloride (98-107) mmol/L Carbon Dioxide (22-32) mmol/L BUN (7-17) mg/dL Creatinine (0.52-1.04) mg/dL Estimated GFR (>60) mL/min BUN/Creatinine Ratio (6-22) Glucose (80-110) mg/dL Calcium (8.4-10.2) mg/dL Total Bilirubin (0.2-1.3) mg/dL AST (14-36) IU/L ALT (9-52) IU/L Alkaline Phosphatase (38-126) U/L Total Protein (6.3-8.2) g/dL Albumin (3.5-5.0) g/dL Globulin (1.7-4.1) g/dL Albumin/Globulin Ratio (1.0-2.8) Nasal Screen MRSA (PCR) Negative for mrsa (Negative) Blood Type Cancelled A Positive Rho(D) Type Cancelled Antibody Screen Cancelled Negative Crossmatch See Detail 07/12/18 07/12/18 Range/Units 11:44 15:20 WBC 7.3 (4.5-11.0) X10^3/uL RBC 3.00 L (4.0-5.2) X10^6/uL Hgb 8.8 L 9.4 L (12.0-16.0) g/dL Hct 25.6 L 27.9 L (36-46) % MCV 93.0 D (80-100) fL MCH 31.5 (26-34) PG MCHC 33.8 (30-36) % RDW 17.6 H (11.6-14.8) % Plt Count 171 (150-400) X10^3/uL Neut % (Auto) 66.5 (50-75) % Lymph % (Auto) 23.8 L (25-40) % [place] % (Auto) 8.1 (3-14) % Eos % (Auto) 0.8 L (2-4) % Baso % (Auto) 0.8 (0-2) % Neut # (Auto) 4800 (4056-1420) /uL RBC Morphology Polychromasia Anisocytosis PT (10.1-12.7) SECONDS INR (0.9-1.3) APTT (26.4-36.2) SECONDS Sodium (137-145) mmol/L Potassium (3.4-5.1) mmol/L Chloride (98-107) mmol/L Carbon Dioxide (22-32) mmol/L BUN (7-17) mg/dL Creatinine (0.52-1.04) mg/dL Estimated GFR (>60) mL/min BUN/Creatinine Ratio (6-22) Glucose (80-110) mg/dL Calcium (8.4-10.2) mg/dL Total Bilirubin (0.2-1.3) mg/dL AST (14-36) IU/L ALT (9-52) IU/L Alkaline Phosphatase (38-126) U/L Total Protein (6.3-8.2) g/dL Albumin (3.5-5.0) g/dL Globulin (1.7-4.1) g/dL Albumin/Globulin Ratio (1.0-2.8) Nasal Screen MRSA (PCR) (Negative) Blood Type Rho(D) Type Antibody Screen Crossmatch [facility] Narrative Medical decision making narrative: Dr Jackson : received turned over from patient. Patient continues to be in the emergency department well a bed is being made available in the ICU. Night provider has already arranged admission and spoke with the hospitalist. Patient is receiving blood. Blood pressure continues to be in the mid to high 80s with a mean arterial pressure in the mid 50s. Increase the rate of the blood transfusions secondary to this. Patient will be transported to ICU when bed is available. Discharge Plan Departure Patient Disposition: Admitted As Inpatient Clinical Impression: Acute upper GI bleed Discharge Date/Time: 11/09/17 07:55 Interventions: ED Discharge Assessment Last Done: 11/09/17 08:03 Admit Date/Time: 11/09/17 06:41 Admit Provider: Kennedi Mora
[2017-11-09] MEDS: PANTOPRAZOLE 40 MG VIAL IV (05:37)
[2017-11-09] MEDS: ONDANSETRON 4 MG/2 ML INJ IV (05:38)
[2017-11-09 05:46] LABS: Add Manual Diff / Slide Review NO; Basophils Percent Auto 1.3 % (0-2); Eosinophils Percent Auto 2.5 % (2-4); Lymphocytes Percent Auto 9.7 % (25-40); Mean Corpuscular HGB Conc 32.9 % (30-36); Mean Corpuscular Hemoglobin 31.7 PG (26-34); Mean Corpuscular Volume 96.5 fL (80-100); Monocytes Percent Auto 7.6 % (3-14); Neutrophils Absolute Auto 4800 /uL (3000-5900); Neutrophils Percent Auto 78.9 % (50-75); Platelet Count 179 X10^3/uL (150-400); Red Blood Cell Count 1.86 X10^6/uL (4.0-5.2); Red Cell Distribution Width 20.8 % (11.6-14.8); White Blood Cell Count 6.1 X10^3/uL (4.5-11.0)
--- NOTE | 2017-11-09 05:48 | PC.NURSE ---
Pt states one episode of hematemesis this morning, denies pain. Has hx of upper GI bleed due to gastric ulcers. Was recently admitted for upper GI bleed with endoscopy. States had a normal bowel movement this morning that was dark colored and takes iron.
[2017-11-09 05:49] LABS: Prothrombin Time 11.3 SECONDS (10.1-12.7)
[2017-11-09 05:51] LABS: PTT Partial Thromboplastin Tim 23 SECONDS (26.4-36.2)
[2017-11-09 05:53] LABS: Alanine Aminotransferase 18 IU/L (9-52); Albumin 3.3 g/dL (3.5-5.0); Albumin Globulin Ratio 1.4 (1.0-2.8); Alkaline Phosphatase 38 U/L (38-126); Aspartate Aminotransferase 22 IU/L (14-36); Bilirubin Total 0.2 mg/dL (0.2-1.3); Blood Urea Nitrogen 24 mg/dL (7-17); Calcium 7.4 mg/dL (8.4-10.2); Carbon Dioxide 28 mmol/L (22-32); Chloride 103 mmol/L (98-107); Estimated Glomerular Filt Rate > 60.0 mL/min (>60); Globulin 2.3 g/dL (1.7-4.1); Glucose 124 mg/dL (80-110); HEMOLYSIS < 15 (0-50); Potassium 4.3 mmol/L (3.4-5.1); Sodium 140 mmol/L (137-145); Total Protein 5.6 g/dL (6.3-8.2)
[2017-11-09 05:56] LABS: Hemoglobin 5.9 g/dL (12.0-16.0)
[2017-11-09 07:04] LABS: Anisocytosis 1+; Polychromasia 1+
--- NOTE | 2017-11-09 09:34 | PM.HP.1 ---
History of Present Illness Date Patient Seen: 11/09/17 Time Patient Seen: 08:00 Chief complaint: Vomiting blood Narrative: 82-year-old woman under the primary care of Dr. Kennedi Mora admitted to this hospital 10/31 through 11/03/2017 after presenting with sudden onset weakness, malaise, nausea and vomiting for several days, found to have kissing Henrique gastric ulcers on upper endoscopy, and undergoing 3 unit packed red blood cell transfusion, discharged home on pantoprazole twice daily. She followed up with her primary care provider's office in the interim but has noted ongoing melenic stools, and this morning vomited bright red blood, and presented to the emergency department where she was found to have a hemoglobin of 5. She is admitted for further management and evaluation and is transfused 2 units of packed red blood cells. Case is reviewed with Dr. Austin will consult on this admission. Notably, the patient had a colostomy take down on August 24, [address] Austin after presentation in December 2016 with perforated diverticulitis, undergoing sigmoid colectomy and colostomy placement at that time. In March 2017 she developed a small-bowel obstruction few days after an unremarkable colonoscopy, and underwent exploratory laparotomy with lysis of adhesions. She took an Aleve tablet 3 weeks ago for back pain, but otherwise denies NSAID or aspirin use. She has severe lumbar spinal stenosis on chronic hydrocodone and plans neurosurgical consultation in the near future. Patient History Medical History Hypothyroidism (Acute) Glaucoma (Acute) Anxiety (Acute) Colon polyp (Acute) History of open sigmoidectomy (Acute) Insomnia (Acute) Lumbar spinal stenosis (Acute) Surgical History Colostomy status (Acute) History of repair of hiatal hernia (Acute) S/P exploratory laparotomy (Acute) Family & Social History Family History: Reviewed 11/09/17 by Terrell Lilly MD Social History: household members none Safety & Behavioral: Feels Safe in Current Yes Environment Tobacco & Substance use: Smoking Status Never smoker alcohol intake current alcohol intake frequency holiday/special occasion Substance Use Type does not use Meds Home Medications Medication Instructions Recorded Confirmed Type latanoprost 1 drp OPHTH HS #0 12/30/16 11/09/17 History escitalopram oxalate 20 mg PO HS #0 08/08/17 11/09/17 History sennosides [senna] 8.6 mg PO QDAY #0 08/08/17 11/09/17 History gabapentin 200 mg PO BID #10 cap 08/29/17 11/09/17 Rx hydrocodone-acetaminophen 1 - 2 tab PO Q6HP PRN #14 tab MDD 6 08/29/17 11/09/17 Rx levothyroxine [Synthroid] 50 mcg PO DAILY #30 tab 08/29/17 11/09/17 Rx walker #1 each 08/29/17 10/30/17 Rx pantoprazole 40 mg PO 0700,2100 30 Days #60 tab 11/03/17 11/09/17 Rx Allergies Allergy/AdvReac Type Severity Reaction Status Date / Time penicillin V [PENICILLIN V] Allergy Severe rash Verified 10/30/17 18:34 latex [LATEX] Allergy Mild rash Verified 10/30/17 18:34 Review of Systems Review of Systems All systems reviewed & are unremarkable except as noted in HPI and below Exam Vital Signs (past 8 hours): - 11/09/17 05:06 11/09/17 05:45 11/09/17 06:04 Temperature 97.3 F L 97.3 F L Pulse Rate 84 84 86 Respiratory Rate 20 20 17 Blood Pressure 108/56 L 108/56 L Blood Pressure [Left Arm] 83/46 L Pulse Oximetry 98 98 11/09/17 06:09 11/09/17 06:36 11/09/17 06:46 Temperature Pulse Rate 91 H 91 H 81 Respiratory Rate 15 16 17 Blood Pressure Blood Pressure [Left Arm] 90/45 L 89/43 L 87/46 L Pulse Oximetry 93 96 11/09/17 06:51 11/09/17 07:06 11/09/17 07:23 Temperature 98.9 F 98.6 F Pulse Rate 80 80 80 Respiratory Rate 19 18 18 Blood Pressure 87/46 L 88/44 L Blood Pressure [Left Arm] 81/45 L Pulse Oximetry 95 11/09/17 07:31 11/09/17 07:48 11/09/17 08:00 Temperature 99.1 F 99.5 F Pulse Rate 79 84 82 Respiratory Rate 18 19 16 Blood Pressure 125/64 H Blood Pressure [Left Arm] 86/43 L 94/41 L Pulse Oximetry 96 97 97 11/09/17 08:42 11/09/17 09:00 Temperature 99.5 F 98.8 F Pulse Rate 82 80 Respiratory Rate 16 18 Blood Pressure 125/64 H 115/85 H Blood Pressure [Left Arm] Pulse Oximetry Oxygen Delivery Method Room Air Oxygen Flow Rate 0 Narrative Exam Narrative: General: Alert, appropriate healthy appearing Juan Kim in female, reports moderate back pain and appears uncomfortable HEENT: Pupils equal round reactive, extraocular movements intact, mucous membranes pink and moist Neck: Supple Lungs: Clear to auscultation Cardiac: Regular rate and rhythm without appreciable murmur Abdomen: Soft, mild epigastric tenderness, no guarding, rebound or rigidity healed midline scar and left abdomen colostomy site Extremities: Without edema, no calf tenderness or swelling Dermatologic: No rash or skin lesions Neurologic: Alert, oriented, no focal findings evident Objective Labs Result Diagrams: 11/09/17 05:30 11/09/17 05:30 Labs: Laboratory Results - last 24 hr 11/09/17 11/09/17 11/09/17 05:30 05:30 05:30 WBC 6.1 RBC 1.86 L Hgb 5.9 L* Hct 18.0 L* MCV 96.5 D MCH 31.7 MCHC 32.9 RDW 20.8 H Plt Count 179 Neut % (Auto) 78.9 H Lymph % (Auto) 9.7 L [place] % (Auto) 7.6 Eos % (Auto) 2.5 Baso % (Auto) 1.3 Neut # (Auto) 4800 RBC Morphology Not Reportable Polychromasia 1+ H Anisocytosis 1+ H PT 11.3 INR 1.0 APTT 23 L D Sodium 140 Potassium 4.3 Chloride 103 Carbon Dioxide 28 BUN 24 H Creatinine 0.60 Estimated GFR > 60.0 BUN/Creatinine Ratio 40.0 H Glucose 124 H Calcium 7.4 L Total Bilirubin 0.2 AST 22 ALT 18 Alkaline Phosphatase 38 Total Protein 5.6 L Albumin 3.3 L Globulin 2.3 Albumin/Globulin Ratio 1.4 Blood Type Rho(D) Type Antibody Screen Crossmatch 11/09/17 11/09/17 05:30 05:30 WBC RBC Hgb Hct MCV MCH MCHC RDW Plt Count Neut % (Auto) Lymph % (Auto) [place] % (Auto) Eos % (Auto) Baso % (Auto) Neut # (Auto) RBC Morphology Polychromasia Anisocytosis PT INR APTT Sodium Potassium Chloride Carbon Dioxide BUN Creatinine Estimated GFR BUN/Creatinine Ratio Glucose Calcium Total Bilirubin AST ALT Alkaline Phosphatase Total Protein Albumin Globulin Albumin/Globulin Ratio Blood Type Cancelled A Positive Rho(D) Type Cancelled Antibody Screen Cancelled Negative Crossmatch See Detail Assessment & Plan Plan: Assessment/Plan Narrative: 1. Acute gastrointestinal bleeding, suspect recurrent kissing Henrique gastric ulcers, presenting with hematemesis and ongoing melena. Initially diagnosed on upper endoscopy 10/31/2017. She is hemodynamically stable, though likely has ongoing active bleeding. Transfuse 2 units of packed red blood cells anticipating upper endoscopy per surgery this afternoon. Treat with IV proton pump inhibitor twice daily pending evaluation. 2. Acute blood loss anemia due to 1. 2 units transfused 11/09/2017. Monitor serial hematocrits with transfusion. 3. Lumbar spinal stenosis with chronic low back pain and opioid habituation. Continue pain control intravenously until able to resume routine oral medications. 4. Hypothyroidism. Resume levothyroxine following procedures. 5. Depression. Resume routine medication after procedure. 6. DVT prophylaxis: Place SCDs. Avoid anticoagulants given active bleeding. 7. Code status: Full code. Reviewed with patient on admission. 8. Disposition: The patient is admitted inpatient status as she will likely require at least 2 midnights of inpatient level care. She normally lives alone, with her son living in [facility] notified by the patient of this admission.
--- NOTE | 2017-11-09 10:40 | PC.ADMIT ---
Addendum entered by Romelia Resendiz R.N. 11/09/17 14:58: Back to room 103 at 1455. Alert and oriented. Denies pain. Oxygen sats 96% on RA. Original Note: Addendum entered by Romelia Resendiz R.N. 11/09/17 14:41: Patient to OR for EGD at 1410. Signed consent with pt. Original Note: Admission Note: Arrived to room 103 via stretcher from ER at 0800. Moved self from stretcher to bed independently. Alert and oriented x3. BP 125/64 on arrival. Denies any dizziness or lightheadedness. Reports vomiting blood last night with dark stools. 1st unit PRBCs complete and 2nd infusing at this time. Oxygen sats 97% on RA. Denies any pain, denies nausea. Up to BSC 1PA, steady on feet. One med. dark, tarry, Guaiac positive stool this morning. Oriented to room and to call light/bed/tv controls. Belongings at bedside, declines to lock up purse/wallet, valuables policy explained. Call light within reach. Friend, Madeline, at bedside. The patient,Cordelia Hoffman,82 y/o, was given written information regarding hospital policies, unit procedures and contact persons. Patient's smoking status: Never smoker. Vital Signs - 8 hr 11/09/17 05:06 11/09/17 05:45 11/09/17 06:04 Temperature 97.3 F L 97.3 F L Pulse Rate 84 84 86 Respiratory Rate 20 20 17 Blood Pressure 108/56 L 108/56 L Blood Pressure [Left Arm] 83/46 L Pulse Oximetry 98 98 11/09/17 06:09 11/09/17 06:36 11/09/17 06:46 Temperature Pulse Rate 91 H 91 H 81 Respiratory Rate 15 16 17 Blood Pressure Blood Pressure [Left Arm] 90/45 L 89/43 L 87/46 L Pulse Oximetry 93 96 11/09/17 06:51 11/09/17 07:06 11/09/17 07:23 Temperature 98.9 F 98.6 F Pulse Rate 80 80 80 Respiratory Rate 19 18 18 Blood Pressure 87/46 L 88/44 L Blood Pressure [Left Arm] 81/45 L Pulse Oximetry 95 11/09/17 07:31 11/09/17 07:48 11/09/17 08:00 Temperature 99.1 F 99.5 F Pulse Rate 79 84 82 Respiratory Rate 18 19 16 Blood Pressure 125/64 H Blood Pressure [Left Arm] 86/43 L 94/41 L Pulse Oximetry 96 97 97 11/09/17 08:42 11/09/17 09:00 Temperature 99.5 F 98.8 F Pulse Rate 82 80 Respiratory Rate 16 18 Blood Pressure 125/64 H 115/85 H Blood Pressure [Left Arm] Pulse Oximetry
[2017-11-09] MEDS: DEXTROSE 5%-0.45% NS 1,000 ML 100 ML IV ×2 (11:06→21:43)
[2017-11-09 11:53] LABS: Hematocrit 25.6 % (36-46); Hemoglobin 8.8 g/dL (12.0-16.0)
--- NOTE | 2017-11-09 13:24 | PM.CN ---
History of Present Illness Date Patient Seen: 11/09/17 Time Patient Seen: 12:07 Chief complaint: Vomiting blood Reason for consult: Hematemesis Requesting provider: Terrell Lilly Narrative: The patient is a woman well known to me. She was recently hospitalized and found to have 2 gastric ulcers in her proximal stomach. After several days she was discharged home but did not get her proton pump inhibitor prescription filled until yesterday. She had hematemesis and return to the hospital. She has been having black bowel movements but has been taking iron. She feels generally weak. [facility] Medical History Hypothyroidism (Acute) Glaucoma (Acute) GI bleed (Acute) Anxiety (Acute) Colon polyp (Acute) History of open sigmoidectomy (Acute) Insomnia (Acute) Lumbar spinal stenosis (Acute) Surgical History Colostomy status (Acute) History of repair of hiatal hernia (Acute) S/P exploratory laparotomy (Acute) Family History Father No problems noted. Mother Heart attack Sister Diabetes mellitus Brother Diabetes mellitus Son Diabetes mellitus Social History household members: none Smoking Status: Never smoker alcohol intake: current Meds Home Medications Medication Instructions Recorded Confirmed Type latanoprost 1 drp OPHTH HS #0 12/30/16 11/09/17 History escitalopram oxalate 20 mg PO HS #0 08/08/17 11/09/17 History sennosides [senna] 8.6 mg PO QDAY #0 08/08/17 11/09/17 History gabapentin 200 mg PO BID #10 cap 08/29/17 11/09/17 Rx hydrocodone-acetaminophen 1 - 2 tab PO Q6HP PRN #14 tab MDD 6 08/29/17 11/09/17 Rx levothyroxine [Synthroid] 50 mcg PO DAILY #30 tab 08/29/17 11/09/17 Rx walker #1 each 08/29/17 10/30/17 Rx pantoprazole 40 mg PO 0700,2100 30 Days #60 tab 11/03/17 11/09/17 Rx Allergies Allergy/AdvReac Type Severity Reaction Status Date / Time penicillin V [PENICILLIN V] Allergy Severe rash Verified 10/30/17 18:34 latex [LATEX] Allergy Mild rash Verified 10/30/17 18:34 Review of Systems Review of Systems No cough or cold. No heart problems or chest pain. Last black bowel movement was earlier today. No seizures. Exam Vital Signs (past 8 hours): - 11/09/17 05:45 11/09/17 06:04 11/09/17 06:09 Temperature 97.3 F L Pulse Rate 84 86 91 H Respiratory Rate 20 17 15 Blood Pressure 108/56 L Blood Pressure [Left Arm] 83/46 L 90/45 L Pulse Oximetry 98 11/09/17 06:36 11/09/17 06:46 11/09/17 06:51 Temperature 98.9 F Pulse Rate 91 H 81 80 Respiratory Rate 16 17 19 Blood Pressure 87/46 L Blood Pressure [Left Arm] 89/43 L 87/46 L Pulse Oximetry 93 96 11/09/17 07:06 11/09/17 07:23 11/09/17 07:31 Temperature 98.6 F Pulse Rate 80 80 79 Respiratory Rate 18 18 18 Blood Pressure 88/44 L Blood Pressure [Left Arm] 81/45 L 86/43 L Pulse Oximetry 95 96 11/09/17 07:48 11/09/17 08:00 11/09/17 08:42 Temperature 99.1 F 99.5 F 99.5 F Pulse Rate 84 82 82 Respiratory Rate 19 16 16 Blood Pressure 125/64 H 125/64 H Blood Pressure [Left Arm] 94/41 L Pulse Oximetry 97 97 11/09/17 09:00 11/09/17 11:07 11/09/17 11:49 Temperature 98.8 F 99 F 99 F Pulse Rate 80 79 82 Respiratory Rate 18 15 18 Blood Pressure 115/85 H 113/62 113/62 Blood Pressure [Left Arm] Pulse Oximetry 97 Oxygen Delivery Method Room Air Oxygen Flow Rate 0 Narrative Exam Narrative: Operative woman in no apparent distress. Her conjunctivae are pale. Lungs are clear to auscultation without rales or rhonchi heart regular rate and rhythm without murmur gallop abdomen is scaphoid soft nontender without mass scars noted from her prior operations. She is alert and orient x3. Objective Labs Result Diagrams: 11/09/17 11:44 11/09/17 05:30 Labs: Laboratory Results - last 24 hr 11/09/17 11/09/17 11/09/17 05:30 05:30 05:30 WBC 6.1 RBC 1.86 L Hgb 5.9 L* Hct 18.0 L* MCV 96.5 D MCH 31.7 MCHC 32.9 RDW 20.8 H Plt Count 179 Neut % (Auto) 78.9 H Lymph % (Auto) 9.7 L [place] % (Auto) 7.6 Eos % (Auto) 2.5 Baso % (Auto) 1.3 Neut # (Auto) 4800 RBC Morphology Not Reportable Polychromasia 1+ H Anisocytosis 1+ H PT 11.3 INR 1.0 APTT 23 L D Sodium 140 Potassium 4.3 Chloride 103 Carbon Dioxide 28 BUN 24 H Creatinine 0.60 Estimated GFR > 60.0 BUN/Creatinine Ratio 40.0 H Glucose 124 H Calcium 7.4 L Total Bilirubin 0.2 AST 22 ALT 18 Alkaline Phosphatase 38 Total Protein 5.6 L Albumin 3.3 L Globulin 2.3 Albumin/Globulin Ratio 1.4 Nasal Screen MRSA (PCR) Blood Type Rho(D) Type Antibody Screen Crossmatch 11/09/17 11/09/17 11/09/17 05:30 05:30 08:00 WBC RBC Hgb Hct MCV MCH MCHC RDW Plt Count Neut % (Auto) Lymph % (Auto) [place] % (Auto) Eos % (Auto) Baso % (Auto) Neut # (Auto) RBC Morphology Polychromasia Anisocytosis PT INR APTT Sodium Potassium Chloride Carbon Dioxide BUN Creatinine Estimated GFR BUN/Creatinine Ratio Glucose Calcium Total Bilirubin AST ALT Alkaline Phosphatase Total Protein Albumin Globulin Albumin/Globulin Ratio Nasal Screen MRSA (PCR) Negative for mrsa Blood Type Cancelled A Positive Rho(D) Type Cancelled Antibody Screen Cancelled Negative Crossmatch See Detail 11/09/17 11:44 WBC RBC Hgb 8.8 L Hct 25.6 L MCV MCH MCHC RDW Plt Count Neut % (Auto) Lymph % (Auto) [place] % (Auto) Eos % (Auto) Baso % (Auto) Neut # (Auto) RBC Morphology Polychromasia Anisocytosis PT INR APTT Sodium Potassium Chloride Carbon Dioxide BUN Creatinine Estimated GFR BUN/Creatinine Ratio Glucose Calcium Total Bilirubin AST ALT Alkaline Phosphatase Total Protein Albumin Globulin Albumin/Globulin Ratio Nasal Screen MRSA (PCR) Blood Type Rho(D) Type Antibody Screen Crossmatch Assessment & Plan Plan: Assessment/Plan Narrative: Will repeat her EGD to see if she needs to have injections done or cauterization of a visible vessel. I suspect her recurrence of bleed is simply because she did take her medication as instructed. Does most unfortunate. I discussed the procedure with her including the rationale including risks of bleeding, perforation, aspiration and pneumonia. She appears to understand and wishes to proceed. She has received 2 units of blood since her arrival. She is quite petite and that probably is broader up into the mid 20s at least.
--- NOTE | 2017-11-09 13:31 | PM.PREOP ---
Pre-operative Note Interval Note Pre-op Check: History & Physical exam performed today H&P completed within 30 days and has changed as indicated here:: Consult performed ASA Class (for procedural sedation): II
[2017-11-09] MEDS: EPINEPHrine 1 MG/10 ML SYRINGE INJ (14:38)
[2017-11-09] MEDS: LIDOCAINE 4% SOLN 50 ML 20 ML TOP (14:52)
[2017-11-09] MEDS: TETRACAINE/BENZOCAINE/BUTAMBEN (CETACAINE) BOTTLE 1 SPRAY TOP (14:54)
[2017-11-09] MEDS: MIDAZOLAM 5 MG/5 ML VIAL IV (14:56)
[2017-11-09] MEDS: fentaNYL 250 MCG/5 ML INJ IV (14:57)
--- NOTE | 2017-11-09 14:57 | P.OP.ENDO_ITS ---
Operative Date/Time/Diagnoses Date of procedure: 11/09/17 Time of procedure: 14:51 Pre-op diagnosis: Upper GI bleed. History of gastric ulcers Post-op diagnosis: same (Gastric ulcers near the GE junction) Procedure & Clinicians Study performed: EGD with injection of epinephrine containing solution Same procedure as scheduled: Yes Indications: Upper GI bleed recurrent Procedure Notes SCOAP/Timeout: Performed Procedure in detail: The patient is placed in left lateral decubitus position after undergoing IV sedation directed by the surgeon consisting of fentanyl and Versed. A bite block was inserted and the scope was advanced through it into the esophagus the esophagus was normal. Patient was noted to have a small hiatal hernia. On entering the stomach there was a small amount of coffee- ground material proximally but essentially the stomach was otherwise free of blood. The stomach was small. The pyloric channel patent. The duodenum was unremarkable 3rd part. The scope was brought back into the stomach and retroflexed. There was an ulcer right near the GE junction there was actually in a fold. It is possible that there was an additional ulcer adjacent to it as kissing ulcers were described at the last scope. The fold however precluded me from seeing that. I could not see any visible vessel and there was not any active bleeding. I chose to inject as best I could around the lesion with epinephrine containing solution. The scope was removed and the patient appeared to tolerate the procedure well. Scope withdrawal time: Not applicable Sedation minutes: 10 Findings: gastric ulcer Recommendations: Continue medication(s) (Protonix b.i.d.) and Other recommendation (EGD in 3 months to confirm healing) Follow up: months Disposition: PACU
[2017-11-09 15:34] LABS: Add Manual Diff / Slide Review NO; Basophils Percent Auto 0.8 % (0-2); Eosinophils Percent Auto 0.8 % (2-4); Hematocrit 27.9 % (36-46); Hemoglobin 9.4 g/dL (12.0-16.0); Lymphocytes Percent Auto 23.8 % (25-40); Mean Corpuscular HGB Conc 33.8 % (30-36); Mean Corpuscular Hemoglobin 31.5 PG (26-34); Monocytes Percent Auto 8.1 % (3-14); Neutrophils Absolute Auto 4800 /uL (3000-5900); Neutrophils Percent Auto 66.5 % (50-75); Platelet Count 171 X10^3/uL (150-400); Red Cell Distribution Width 17.6 % (11.6-14.8); White Blood Cell Count 7.3 X10^3/uL (4.5-11.0)
--- NOTE | 2017-11-09 17:49 | PC.NURSE ---
1700- Patient is alert and oriented. Patient ate a good dinner. Denies discomfort. Lungs are clear. No distress at this time. Will monitor
[2017-11-09 20:17] LABS: Hematocrit 26.5 % (36-46); Hemoglobin 8.9 g/dL (12.0-16.0)
[2017-11-09] MEDS: PANTOPRAZOLE 40 MG TABLET PO (21:35)
[2017-11-09] MEDS: LATANOPROST 0.005% OPHTH 2.5 ML 1 DROPS EYE-BOTH (21:35)
[2017-11-09] MEDS: GABAPENTIN 100 MG CAPSULE 200 MG PO (21:36)
[2017-11-09] MEDS: ESCITALOPRAM 10 MG TABLET 20 MG PO (21:37)
[2017-11-09] MEDS: LORazepam 0.5 MG TABLET PO (21:39)
[2017-11-10 00:18] VITALS: BP 109/56; PULSE 69; RESP 16; TEMP 36.1; O2SAT 96
[2017-11-10 04:41] VITALS: BP 111/60; PULSE 70; RESP 16; TEMP 36; O2SAT 96
[2017-11-10 05:16] LABS: Add Manual Diff / Slide Review NO; Basophils Percent Auto 1.4 % (0-2); Eosinophils Percent Auto 2.8 % (2-4); Hematocrit 25.4 % (36-46); Hemoglobin 8.6 g/dL (12.0-16.0); Lymphocytes Percent Auto 20.3 % (25-40); Mean Corpuscular HGB Conc 33.7 % (30-36); Mean Corpuscular Hemoglobin 31.5 PG (26-34); Mean Corpuscular Volume 93.5 fL (80-100); Monocytes Percent Auto 13.7 % (3-14); Neutrophils Absolute Auto 3200 /uL (3000-5900); Neutrophils Percent Auto 61.8 % (50-75); Platelet Count 153 X10^3/uL (150-400); Red Blood Cell Count 2.72 X10^6/uL (4.0-5.2); Red Cell Distribution Width 18.1 % (11.6-14.8); White Blood Cell Count 5.1 X10^3/uL (4.5-11.0)
[2017-11-10 05:20] LABS: Blood Urea Nitrogen 11 mg/dL (7-17); Calcium 7.6 mg/dL (8.4-10.2); Carbon Dioxide 27 mmol/L (22-32); Chloride 107 mmol/L (98-107); Estimated Glomerular Filt Rate > 60.0 mL/min (>60); Glucose 115 mg/dL (80-110); HEMOLYSIS < 15 (0-50); Potassium 3.4 mmol/L (3.4-5.1); Sodium 140 mmol/L (137-145)
[2017-11-10] MEDS: DEXTROSE 5%-0.45% NS 1,000 ML 100 ML IV (07:37)
[2017-11-10] MEDS: PANTOPRAZOLE 40 MG TABLET PO ×2 (07:49→20:13)
[2017-11-10] MEDS: LEVOTHYROXINE 50 MCG TABLET PO (07:49)
[2017-11-10 07:56] VITALS: BP 115/59; PULSE 68; RESP 18; TEMP 36.4; O2SAT 96
--- NOTE | 2017-11-10 08:03 | PM.PN.1 ---
Subjective Date Patient Seen: 11/10/17 Time Patient Seen: 07:40 Interval history: The patient reports feeling well. She underwent upper endoscopy yesterday with injection of nonbleeding ulcer sites. No nausea, vomiting, abdominal pain or hematemesis. She does describe mild cough this morning without shortness of breath. Exam Vital Signs (past 8 hours): - 11/10/17 00:18 11/10/17 04:41 11/10/17 07:56 Temperature 96.9 F L 96.8 F L 97.6 F Pulse Rate 69 70 68 Respiratory Rate 16 16 18 Blood Pressure 109/56 L 111/60 115/59 L Pulse Oximetry 96 96 96 Oxygen Delivery Method Room Air Oxygen Flow Rate 0 Narrative Exam Narrative: General: Alert, appropriate [facility], reports moderate back pain and appears uncomfortable HEENT: Pupils equal round reactive, extraocular movements intact, mucous membranes pink and moist Neck: Supple Lungs: Clear to auscultation except for bibasilar crackles Cardiac: Regular rate and rhythm without appreciable murmur Abdomen: Soft, nontender, no guarding, rebound or rigidity healed midline scar and left abdomen colostomy site Extremities: Without edema, no calf tenderness or swelling Dermatologic: No rash or skin lesions Neurologic: Alert, oriented, no focal findings evident Objective Labs Result Diagrams: 11/10/17 04:38 11/10/17 04:38 Labs: Laboratory Results - last 24 hr 11/09/17 11/09/17 11/09/17 05:30 08:00 11:44 WBC RBC Hgb 8.8 L Hct 25.6 L MCV MCH MCHC RDW Plt Count Neut % (Auto) Lymph % (Auto) [place] % (Auto) Eos % (Auto) Baso % (Auto) Neut # (Auto) Sodium Potassium Chloride Carbon Dioxide BUN Creatinine Estimated GFR BUN/Creatinine Ratio Glucose Calcium Nasal Screen MRSA (PCR) Negative for mrsa Blood Type A Positive Antibody Screen Negative Crossmatch See Detail 11/09/17 11/09/17 11/10/17 15:20 20:05 04:38 WBC 7.3 5.1 RBC 3.00 L 2.72 L Hgb 9.4 L 8.9 L 8.6 L Hct 27.9 L 26.5 L 25.4 L MCV 93.0 D 93.5 MCH 31.5 31.5 MCHC 33.8 33.7 RDW 17.6 H 18.1 H Plt Count 171 153 Neut % (Auto) 66.5 61.8 Lymph % (Auto) 23.8 L 20.3 L [place] % (Auto) 8.1 13.7 Eos % (Auto) 0.8 L 2.8 Baso % (Auto) 0.8 1.4 Neut # (Auto) 4800 3200 Sodium Potassium Chloride Carbon Dioxide BUN Creatinine Estimated GFR BUN/Creatinine Ratio Glucose Calcium Nasal Screen MRSA (PCR) Blood Type Antibody Screen Crossmatch 11/10/17 04:38 WBC RBC Hgb Hct MCV MCH MCHC RDW Plt Count Neut % (Auto) Lymph % (Auto) [place] % (Auto) Eos % (Auto) Baso % (Auto) Neut # (Auto) Sodium 140 Potassium 3.4 Chloride 107 Carbon Dioxide 27 BUN 11 Creatinine 0.50 L Estimated GFR > 60.0 BUN/Creatinine Ratio 22.0 Glucose 115 H Calcium 7.6 L Nasal Screen MRSA (PCR) Blood Type Antibody Screen Crossmatch Assessment & Plan Plan: Assessment/Plan Narrative: 1. 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 Initially diagnosed on upper endoscopy 10/31/2017. She is hemodynamically stable ongoing active bleeding. Transfuse 2 units of packed red blood cells anticipating upper endoscopy per surgery this afternoon. Treat with IV proton pump inhibitor twice daily pending evaluation. 2. Acute blood loss anemia due to 1, status post 2 units transfused 11/09/2017. Continue to monitor. 3. Lumbar spinal stenosis with chronic low back pain and opioid habituation. Continue routine oral medications. 4. Hypothyroidism. Continue routine levothyroxine. 5. Depression. Continue routine medications. 6. DVT prophylaxis: SCDs. Avoid anticoagulants given active bleeding. 7. Code status: Full code. Reviewed with patient on admission. 8. Disposition: Continue inpatient care with monitoring for 1-2 additional days to ensure medical stability, given high risk of rebleeding. Quality VTE Deep Vein Thrombosis/Pulmonary Embolism Present on Admission: No
--- NOTE | 2017-11-10 08:08 | P.PN_ITS ---
Subjective Date Patient Seen: 11/10/17 Time Patient Seen: 07:40 Interval history: The patient reports feeling well. She underwent upper endoscopy yesterday with injection of nonbleeding ulcer sites. No nausea, vomiting, abdominal pain or hematemesis. She does describe mild cough this morning without shortness of breath. Exam Vital Signs (past 8 hours): - 11/10/17 00:18 11/10/17 04:41 11/10/17 07:56 Temperature 96.9 F L 96.8 F L 97.6 F Pulse Rate 69 70 68 Respiratory Rate 16 16 18 Blood Pressure 109/56 L 111/60 115/59 L Pulse Oximetry 96 96 96 Oxygen Delivery Method Room Air Oxygen Flow Rate 0 Narrative Exam Narrative: General: Alert, appropriate healthy [facility], reports moderate back pain and appears uncomfortable HEENT: Pupils equal round reactive, extraocular movements intact, mucous membranes pink and moist Neck: Supple Lungs: Clear to auscultation except for bibasilar crackles Cardiac: Regular rate and rhythm without appreciable murmur Abdomen: Soft, nontender, no guarding, rebound or rigidity healed midline scar and left abdomen colostomy site Extremities: Without edema, no calf tenderness or swelling Dermatologic: No rash or skin lesions Neurologic: Alert, oriented, no focal findings evident Objective Labs Result Diagrams: 11/10/17 04:38 11/10/17 04:38 Labs: Laboratory Results - last 24 hr 11/09/17 11/09/17 11/09/17 05:30 08:00 11:44 WBC RBC Hgb 8.8 L Hct 25.6 L MCV MCH MCHC RDW Plt Count Neut % (Auto) Lymph % (Auto) [place] % (Auto) Eos % (Auto) Baso % (Auto) Neut # (Auto) Sodium Potassium Chloride Carbon Dioxide BUN Creatinine Estimated GFR BUN/Creatinine Ratio Glucose Calcium Nasal Screen MRSA (PCR) Negative for mrsa Blood Type A Positive Antibody Screen Negative Crossmatch See Detail 11/09/17 11/09/17 11/10/17 15:20 20:05 04:38 WBC 7.3 5.1 RBC 3.00 L 2.72 L Hgb 9.4 L 8.9 L 8.6 L Hct 27.9 L 26.5 L 25.4 L MCV 93.0 D 93.5 MCH 31.5 31.5 MCHC 33.8 33.7 RDW 17.6 H 18.1 H Plt Count 171 153 Neut % (Auto) 66.5 61.8 Lymph % (Auto) 23.8 L 20.3 L [place] % (Auto) 8.1 13.7 Eos % (Auto) 0.8 L 2.8 Baso % (Auto) 0.8 1.4 Neut # (Auto) 4800 3200 Sodium Potassium Chloride Carbon Dioxide BUN Creatinine Estimated GFR BUN/Creatinine Ratio Glucose Calcium Nasal Screen MRSA (PCR) Blood Type Antibody Screen Crossmatch 11/10/17 04:38 WBC RBC Hgb Hct MCV MCH MCHC RDW Plt Count Neut % (Auto) Lymph % (Auto) [place] % (Auto) Eos % (Auto) Baso % (Auto) Neut # (Auto) Sodium 140 Potassium 3.4 Chloride 107 Carbon Dioxide 27 BUN 11 Creatinine 0.50 L Estimated GFR > 60.0 BUN/Creatinine Ratio 22.0 Glucose 115 H Calcium 7.6 L Nasal Screen MRSA (PCR) Blood Type Antibody Screen Crossmatch Assessment & Plan Plan: Assessment/Plan Narrative: 1. 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 Initially diagnosed on upper endoscopy 2017. She is hemodynamically stable ongoing active bleeding. Transfuse 2 units of packed red blood cells anticipating upper endoscopy per surgery this afternoon. Treat with IV proton pump inhibitor twice daily pending evaluation. 2. Acute blood loss anemia due to 1, status post 2 units transfused 2017. Continue to monitor. 3. Lumbar spinal stenosis with chronic low back pain and opioid habituation. Continue routine oral medications. 4. Hypothyroidism. Continue routine levothyroxine. 5. Depression. Continue routine medications. 6. DVT prophylaxis: SCDs. Avoid anticoagulants given active bleeding. 7. Code status: Full code. Reviewed with patient on admission. 8. Disposition: Continue inpatient care with monitoring for 1-2 additional days to ensure medical stability, given high risk of rebleeding. Quality VTE Deep Vein Thrombosis/Pulmonary Embolism Present on Admission: No
--- NOTE | 2017-11-10 08:19 | PC.NURSE ---
Addendum entered by Bonnie Covarrubias R.N. 11/10/17 12:01: MS/GI - enc pt oob, indep stood and ambul chair, positioned comfortably for meal, no complaints discomfort or nausea. Original Note: Addendum entered by Bonnie Covarrubias R.N. 11/10/17 10:05: GI - up to bsc w/very small smear dark stool w/some maroon tinge. Original Note: AM NOTE - awakens easily, denies abd discomfort or nausea, states I'm perfect this moment, repositioned for adls, active bt throughout, hr reg 68, ra 99%.
[2017-11-10] MEDS: SENNOSIDES 8.6 MG TABLET PO (08:42)
[2017-11-10] MEDS: GABAPENTIN 100 MG CAPSULE 200 MG PO ×2 (08:42→20:13)
[2017-11-10 12:00] VITALS: BP 135/76; PULSE 70; RESP 16; TEMP 37.4; O2SAT 96
[2017-11-10 15:22] VITALS: BP 117/62; PULSE 65; RESP 16; TEMP 36.9; O2SAT 98
--- NOTE | 2017-11-10 16:43 | CM.DANOTE ---
DCP: assessment: chart review only: Case received, EMR reviewed and spoke with Dr. Lilly. He noted pt would be here a couple more days before being ok'd for home. Pt is an 82 year old female who admitted yesterday to care of hospitalist team. PCP:listed as Dr. Mora. Pt has a son in [place], contact info on face sheet. Payer: Medicare READMIT: noted: pt was just here 7-2 to 7-5 and followed by PARVEZ Diaz and then Diana. She did go home at that time and their prior assessments are noted. P: time constraints of caseload management and events today in ICU made an initial interview not possible. Will defer to DCP team to follow tomorrow.
[2017-11-10] MEDS: LATANOPROST 0.005% OPHTH 2.5 ML 1 DROPS EYE-BOTH (20:13)
[2017-11-10] MEDS: ESCITALOPRAM 10 MG TABLET 20 MG PO (20:13)
[2017-11-10 20:32] VITALS: BP 137/69; PULSE 67; RESP 18; TEMP 36.6; O2SAT 97
[2017-11-11 01:00] VITALS: BP 124/59; PULSE 64; RESP 18; TEMP 36.4; O2SAT 100
[2017-11-11 04:47] VITALS: BP 124/59; PULSE 64; RESP 16; TEMP 37.3; O2SAT 98
[2017-11-11 05:30] LABS: Add Manual Diff / Slide Review NO; Eosinophils Percent Auto 3.6 % (2-4); Hematocrit 28.7 % (36-46); Hemoglobin 9.7 g/dL (12.0-16.0); Mean Corpuscular HGB Conc 33.7 % (30-36); Mean Corpuscular Hemoglobin 31.6 PG (26-34); Mean Corpuscular Volume 93.7 fL (80-100); Monocytes Percent Auto 10.2 % (3-14); Neutrophils Absolute Auto 4000 /uL (3000-5900); Neutrophils Percent Auto 71.2 % (50-75); Platelet Count 182 X10^3/uL (150-400); Red Blood Cell Count 3.07 X10^6/uL (4.0-5.2); Red Cell Distribution Width 19.2 % (11.6-14.8); White Blood Cell Count 5.7 X10^3/uL (4.5-11.0)
[2017-11-11] MEDS: LEVOTHYROXINE 50 MCG TABLET PO (06:05)
[2017-11-11 08:03] VITALS: BP 140/77; PULSE 78; RESP 20; TEMP 37.1; O2SAT 98
[2017-11-11] MEDS: SENNOSIDES 8.6 MG TABLET PO (08:13)
[2017-11-11] MEDS: GABAPENTIN 100 MG CAPSULE 200 MG PO ×2 (08:13→21:12)
[2017-11-11] MEDS: PANTOPRAZOLE 40 MG TABLET PO ×2 (08:13→21:13)
--- NOTE | 2017-11-11 09:19 | CM.DANOTE ---
DCP: Case received, EMR reviewed and met with patient. Introduced self and role. DCP template completed with info currently available. Pt. is a 82 year old patient who admitted on the 12th in the morning to care of hospitalist team. PCP: Payer: confirmed Medicare/[employer]. Pt. carries diagnosis of hemoptysis. Had been admitted recently as well. Lives alone, has supportive friends, and son lives in [place]. P: Continue to monitor discharge needs, and pursue home health to assist with needs, therapy and nursing. Diana Alcantar RN/manager of manufacturing
--- NOTE | 2017-11-11 10:04 | PC.NURSE ---
Addendum entered by Isa White R.N. 11/11/17 14:40: POC updated for FC status through weekend likely, due to risk for rebleed. Pt and son updated. Original Note: Am shift Pt H/H remain stable. Reports pain to R knee, chronic. Medicated with [place]. ABD soft, nontender. Flatus + no BM this shift, Pt reports overnight, black tarry stool. No nausea, eating at meal time. SBA for ADLs and uses call light appropriately for needs.
[2017-11-11] MEDS: HYDROCODONE/ACET 5/325 TABLET 2 TAB PO ×3 (10:15→22:25)
--- NOTE | 2017-11-11 11:15 | PM.PN.1 ---
Subjective Date Patient Seen: 11/11/17 Time Patient Seen: 11:00 Interval history: She reported an episode of melena overnight, but no nausea, vomiting or hematemesis. Exam Vital Signs (past 8 hours): - 11/11/17 04:47 11/11/17 08:03 Temperature 99.1 F 98.8 F Pulse Rate 64 78 Respiratory Rate 16 20 Blood Pressure 124/59 H 140/77 H Pulse Oximetry 98 98 Oxygen Delivery Method Room Air Oxygen Flow Rate 0 Narrative Exam Narrative: General: Alert, appropriate healthy appearing Juan Kim in female, reports moderate back pain and appears uncomfortable HEENT: Pupils equal round reactive, extraocular movements intact, mucous membranes pink and moist Neck: Supple Lungs: Clear to auscultation except for bibasilar crackles Cardiac: Regular rate and rhythm without appreciable murmur Abdomen: Soft, nontender, no guarding, rebound or rigidity healed midline scar and left abdomen colostomy site Extremities: Without edema, no calf tenderness or swelling Dermatologic: No rash or skin lesions Neurologic: Alert, oriented, no focal findings evident Objective Labs Result Diagrams: 11/11/17 04:36 11/10/17 04:38 Labs: Laboratory Results - last 24 hr 11/11/17 04:36 WBC 5.7 RBC 3.07 L Hgb 9.7 L Hct 28.7 L MCV 93.7 MCH 31.6 MCHC 33.7 RDW 19.2 H Plt Count 182 Neut % (Auto) 71.2 Lymph % (Auto) 14.0 L [place] % (Auto) 10.2 Eos % (Auto) 3.6 Baso % (Auto) 1.0 Neut # (Auto) 4000 Assessment & Plan Plan: Assessment/Plan Narrative: 1. 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 Initially diagnosed on upper endoscopy 10/31/2017. She is hemodynamically stable with an episode of melena overnight and needs to be monitored given high risk for rebleeding. 2. Acute blood loss anemia due to 1, status post 2 units transfused 11/09/2017. Continue to monitor. 3. Lumbar spinal stenosis with chronic low back pain and opioid habituation. Continue routine oral medications. 4. Hypothyroidism. Continue routine levothyroxine. 5. Depression. Continue routine medications. 6. DVT prophylaxis: SCDs. Avoid anticoagulants given active bleeding. 7. Code status: Full code. Reviewed with patient on admission. 8. Disposition: Continue inpatient care with monitoring for 1-2 additional days to ensure medical stability, given high risk of rebleeding. Quality VTE Deep Vein Thrombosis/Pulmonary Embolism Present on Admission: No
[2017-11-11 12:30] VITALS: BP 130/70; PULSE 68; RESP 18; TEMP 36.7; O2SAT 97
[2017-11-11 16:01] VITALS: BP 103/53; PULSE 62; RESP 16; TEMP 35.6; O2SAT 97
[2017-11-11 20:02] VITALS: BP 144/50; PULSE 64; RESP 16; TEMP 36.3; O2SAT 100
[2017-11-11] MEDS: LATANOPROST 0.005% OPHTH 2.5 ML 1 DROPS EYE-BOTH (21:12)
[2017-11-11] MEDS: ESCITALOPRAM 10 MG TABLET 20 MG PO (21:13)
[2017-11-11] MEDS: LORazepam 0.5 MG TABLET PO (22:26)
[2017-11-12] VITALS (7 sets, daily range): BP systolic 109–132; BP diastolic 56–72; PULSE 61–76; RESP 13–18; TEMP 36.6–36.8; O2SAT 95–100
--- NOTE | 2017-11-12 02:37 | PC.NURSE ---
Addendum entered by Ashlie Herr R.N. 11/12/17 06:19: Pt OOB to BR with SBA, voiding qs, had small brown BM found in toilet water. Measuring hat placed in toilet for next BM to better assess for blood. No concerns from pt this AM. Original Note: Composite Technician- Report rec'd from JANIA Navarro in ICU at 0205 on current pt status. Pt arrived to room 227 at 0215 via wheelchair, pt able to indep ambulate from wheelchair to bed, SBA. Denied feeling light-headed or dizzy. OX4, Call light within reach. Denies chest pain, abd pain or tenderness, bloating. Pt states her bowels are very active. O2 sat 95% on RA. PIV S/L'd to left hand. No edema noted, skin intact. Denies nausea, will monitor for bleeding. High fall risk precautions in place. Pt had no voiced concerns.
[2017-11-12 05:50] LABS: Add Manual Diff / Slide Review NO; Basophils Percent Auto 1.8 % (0-2); Eosinophils Percent Auto 4.9 % (2-4); Hematocrit 25.8 % (36-46); Hemoglobin 8.6 g/dL (12.0-16.0); Lymphocytes Percent Auto 20.9 % (25-40); Mean Corpuscular HGB Conc 33.5 % (30-36); Mean Corpuscular Hemoglobin 31.5 PG (26-34); Mean Corpuscular Volume 94.3 fL (80-100); Monocytes Percent Auto 14.1 % (3-14); Neutrophils Absolute Auto 2100 /uL (3000-5900); Neutrophils Percent Auto 58.3 % (50-75); Platelet Count 170 X10^3/uL (150-400); Red Blood Cell Count 2.74 X10^6/uL (4.0-5.2); Red Cell Distribution Width 19.4 % (11.6-14.8); White Blood Cell Count 3.6 X10^3/uL (4.5-11.0)
[2017-11-12] MEDS: PANTOPRAZOLE 40 MG TABLET PO ×2 (05:57→20:48)
[2017-11-12] MEDS: LEVOTHYROXINE 50 MCG TABLET PO (05:57)
[2017-11-12] MEDS: HYDROCODONE/ACET 5/325 TABLET 2 TAB PO (08:29)
[2017-11-12] MEDS: GABAPENTIN 100 MG CAPSULE 200 MG PO ×2 (08:30→20:48)
[2017-11-12] MEDS: SENNOSIDES 8.6 MG TABLET PO (08:30)
[2017-11-12] MEDS: SODIUM CHLORIDE 0.9% FLUSH 10 ML IV ×2 (08:31→20:57)
--- NOTE | 2017-11-12 09:59 | PC.NURSE ---
Cordelia had a sm. soft blk. BM this AM. She denies abd. pain, no nausea. Able to eat full liq. diet well. VSS. H/H has decreased from yesterday. Per MD will continue to monitor. Extensive teaching done re: importance of compliance with Protonix regimen. She is surprised that she is to take it Even when I'm feeling OK. She now verbalizes understanding of need for PPI Rx.
--- NOTE | 2017-11-12 10:10 | P.PN_ITS ---
Subjective Date Patient Seen: 11/12/17 Time Patient Seen: 09:15 Interval history: She continues to report melenic stools overnight. She has a mild cough at night. No new complaints otherwise. Exam Vital Signs (past 8 hours): - 11/12/17 02:29 11/12/17 05:46 11/12/17 08:37 Temperature 98.1 F 98.2 F Pulse Rate 61 65 Respiratory Rate 18 13 Blood Pressure 122/62 H 117/56 L Pulse Oximetry 95 96 100 Oxygen Delivery Method Room Air Oxygen Flow Rate 0 Narrative Exam Narrative: General: Alert, appropriate, healthy appearing [facility], appears comfortable HEENT: Pupils equal round reactive, extraocular movements intact, mucous membranes pink and moist Neck: Supple Lungs: Clear to auscultation except for bibasilar crackles Cardiac: Regular rate and rhythm without appreciable murmur Abdomen: Soft, nontender, no guarding, rebound or rigidity healed midline scar and left abdomen colostomy site Extremities: Without edema, no calf tenderness or swelling Dermatologic: No rash or skin lesions Neurologic: Alert, oriented, no focal findings evident Objective Labs Result Diagrams: 11/12/17 05:16 11/10/17 04:38 Labs: Laboratory Results - last 24 hr 11/12/17 05:16 WBC 3.6 L RBC 2.74 L Hgb 8.6 L Hct 25.8 L MCV 94.3 MCH 31.5 MCHC 33.5 RDW 19.4 H Plt Count 170 Neut % (Auto) 58.3 Lymph % (Auto) 20.9 L [place] % (Auto) 14.1 H Eos % (Auto) 4.9 H Baso % (Auto) 1.8 Neut # (Auto) 2100 L Assessment & Plan Plan: Assessment/Plan Narrative: 1. 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 Initially diagnosed on upper endoscopy 10/31/2017. She is hemodynamically stable with another episode of melena overnight and needs to be monitored given high risk for rebleeding. Case reviewed with surgery today. Consider repeat endoscopy if recurrent bleeding. 2. Acute blood loss anemia due to 1, status post 2 units transfused 2017. Continue to monitor. 3. Lumbar spinal stenosis with chronic low back pain and opioid habituation. Continue routine oral medications. 4. Hypothyroidism. Continue routine levothyroxine. 5. Depression. Continue routine medications. 6. DVT prophylaxis: SCDs. Avoid anticoagulants given active bleeding. 7. Code status: Full code. Reviewed with patient on admission. 8. Disposition: Continue inpatient care with monitoring for 1-2 additional days to ensure medical stability, given high risk of rebleeding. Quality VTE Deep Vein Thrombosis/Pulmonary Embolism Present on Admission: No
[2017-11-12] MEDS: LATANOPROST 0.005% OPHTH 2.5 ML 1 DROPS EYE-BOTH (20:48)
[2017-11-12] MEDS: ESCITALOPRAM 10 MG TABLET 20 MG PO (20:49)
[2017-11-12] MEDS: LORazepam 0.5 MG TABLET PO (20:57)
[2017-11-12] MEDS: guaiFENesin Liquid 100 MG/5 ML UDC 10 MG PO (22:53)
--- NOTE | 2017-11-12 22:59 | PC.NURSE ---
Debbi shift note: Patient awake and alert, pleasant and cooperative. No c/o of abdominal pain or nausea. No dizziness or SOB. VSS and afebrile. Ambulating with stand by assistance and steady gait. Large soft dark green stool, no flank blood noted.
[2017-11-13] VITALS (7 sets, daily range): BP systolic 100–134; BP diastolic 56–72; PULSE 60–79; RESP 16–18; TEMP 36.2–36.9; O2SAT 97–100
[2017-11-13 05:13] LABS: Add Manual Diff / Slide Review NO; Basophils Percent Auto 2.7 % (0-2); Eosinophils Percent Auto 6.2 % (2-4); Hematocrit 27.2 % (36-46); Hemoglobin 9.2 g/dL (12.0-16.0); Lymphocytes Percent Auto 26.3 % (25-40); Mean Corpuscular Hemoglobin 31.9 PG (26-34); Mean Corpuscular Volume 93.7 fL (80-100); Monocytes Percent Auto 13.2 % (3-14); Neutrophils Absolute Auto 1700 /uL (3000-5900); Neutrophils Percent Auto 51.6 % (50-75); Platelet Count 181 X10^3/uL (150-400); Red Cell Distribution Width 18.9 % (11.6-14.8); White Blood Cell Count 3.4 X10^3/uL (4.5-11.0)
[2017-11-13] MEDS: HYDROCODONE/ACET 5/325 TABLET 2 TAB PO ×3 (05:20→21:00)
[2017-11-13] MEDS: LEVOTHYROXINE 50 MCG TABLET PO (06:00)
[2017-11-13] MEDS: PANTOPRAZOLE 40 MG TABLET PO ×2 (06:00→20:58)
--- NOTE | 2017-11-13 08:49 | PC.NURSE ---
Cordelia feels good this AM. So far no BM since yesterday. No c/o N/V. Tolerating her full liq. meals. H/H are trending up from yesterday. VSS. Hopefully D/C later today.
[2017-11-13] MEDS: SENNOSIDES 8.6 MG TABLET PO (09:24)
[2017-11-13] MEDS: GABAPENTIN 100 MG CAPSULE 200 MG PO ×2 (09:24→20:58)
--- NOTE | 2017-11-13 10:23 | CM.DPNOTE ---
Addendum entered by Jazlyn Duvall LPN 11/13/17 12:46: Macy has now confirmed acceptance at [facility] and does have a pvt room for pt. Pt is updated and expresses her pleasure of same. Original Note: DCP: continued: Case received, EMR reviewed and spoke with hospitalist ULI Crespo who noted pt likely would be ready for d/c tomorrow if no further bleeding noted. Discussed case with RN Chapis who noted pt was wondering about a snf stay before home and then met with pt. Introduced self and role. Pt reports that at baseline she if functional without an assistive device and I really just feel much weaker than usual. Pt does confirm she hires someone to help her 1-2x week for chores and also pays a friend to take her to get groceries etc. She wishes to return home but when stronger. Also expresses that she is worried about a recurrence in bleeding and wants to make sure all is ok. This d/c brand planner agrees these are very valid needs for a short snf stay. SNF choice list: discussed Decision: [facility] (pt was there before, does wonder if pvt room is available). Referral to [facility] given, she is reviewing and will call back but acceptance is probable. Zak MCNALLY is updated. Requesting OT PT orders. PASRR: will complete and fax to [facility] when acceptance is received.
--- NOTE | 2017-11-13 12:01 | PM.PN.1 ---
Subjective Date Patient Seen: 11/13/17 Time Patient Seen: 12:01 Interval history: She does not have any further bowel movements this morning last melena was last night Exam Vital Signs (past 8 hours): - 11/13/17 05:28 11/13/17 09:09 Temperature 97.5 F L 97.1 F L Pulse Rate 74 66 Respiratory Rate 18 16 Blood Pressure 134/65 H 132/72 H Pulse Oximetry 99 Oxygen Delivery Method Room Air Oxygen Flow Rate 0 Narrative Exam Narrative: Thin frail elderly female no acute distress resting comfortably HEENT exam unremarkable Lungs Clear to auscultation Heart regular rhythm Abdomen thin soft nontender Neuro exam awake alert focal deficits none Objective Labs Result Diagrams: 11/13/17 04:49 11/10/17 04:38 Labs: Laboratory Results - last 24 hr 11/13/17 04:49 WBC 3.4 L RBC 2.90 L Hgb 9.2 L Hct 27.2 L MCV 93.7 MCH 31.9 MCHC 34.0 RDW 18.9 H Plt Count 181 Neut % (Auto) 51.6 Lymph % (Auto) 26.3 [place] % (Auto) 13.2 Eos % (Auto) 6.2 H Baso % (Auto) 2.7 H Neut # (Auto) 1700 L Assessment & Plan Plan: Assessment/Plan Narrative: 1. 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 Initially diagnosed on upper endoscopy 10/31/2017. She is hemodynamically stable with another episode of melena overnight and needs to be monitored given high risk for rebleeding. Seems to have stabilized will watch her again 24 hr here and advance her diet and if stable possibly to the fdc tomorrow. Patient feeling too weak to go home will have physical therapy evaluate her 2. Acute blood loss anemia due to 1, status post 2 units transfused 11/09/2017. Continue to monitor. 3. Lumbar spinal stenosis with chronic low back pain and opioid habituation. Continue routine oral medications. 4. Hypothyroidism. Continue routine levothyroxine. 5. Depression. Continue routine medications. 6. DVT prophylaxis: SCDs. Avoid anticoagulants given active bleeding. 7. Code status: Full code. Reviewed with patient on admission. 8. Disposition: Certainly at high risk for rebleeding plan to observe 1 more day but probably discharge tomorrow on Monday Quality VTE Deep Vein Thrombosis/Pulmonary Embolism Present on Admission: No
--- NOTE | 2017-11-13 12:59 | PT.IIE ---
Current Diagnoses Melena (11/09/17) Surgery Performed Operation Date: 11/09/17 15:00 Actual Procedures p Esophagogastroduodenoscopy with eppinephrine ingection - Shon Austin MD Surgical History (Last Reviewed 11/09/17 @ 13:28 by Shon Austin MD) Colostomy status (Acute) History of repair of hiatal hernia (Acute) S/P exploratory laparotomy (Acute) Medical History (Last Reviewed 11/09/17 @ 13:27 by Shon Austin MD) Hypothyroidism (Acute) Glaucoma (Acute) GI bleed (Acute) Anxiety (Acute) Colon polyp (Acute) History of open sigmoidectomy (Acute) Insomnia (Acute) Lumbar spinal stenosis (Acute) Physical Therapy Inpatient Evaluation/Re-Eval Physical Therapy Current Condition Current Condition Evaluation Date 11/13/17 Treatment Diagnosis weakness Onset Date 11/09/17 Subjective Physical Therapy Visit Type Type Initial Evaluation Visit Start Time 12:30 Visit Stop Time 12:53 Total Visit Minutes 23 Physical Therapy Visit Comments Patient Comments Pt reports feeling better but just a lot weaker than usual, doesn't feel safe to go home. Short Term Goals get stronger Therapy Pain Assessment Pain When Pain Assessed At Rest Pain Present Pain Present Denied Pain PT-Bed Mobility Assessment Supine to Sit Supine to Sit Minimal Assistance Sit to Supine Sit to Supine Minimal Assistance Scooting Scooting to Edge of Bed Minimal Assistance Scooting Up and Down in Bed Moderate Assistance PT-Transfer Assessment Sit to and From Stand Sit to and from Stand Minimal Assistance Equipment Transfer Assistive Device Gait Belt Front Wheeled Walker Transfers Transfer Destination Bed Chair Transfer Technique Stand Step Pivot Transfer Ability Level of Assist Minimal Assistance 1 Person Assistance Use of Upper Extremities Gait Assessment Gait Gait Assistance Required: Contact Guard Assist 1 Person Assist Distance (Feet) (feet) 25 Assistive Devices Assistive Device Gait Belt Front Wheeled Walker Gait Deviations General Gait Pattern Decreased Stride Length Decreased Feet Clearance Wide Based Gait Factors Limiting Gait Function Factors Limiting Gait Function Decreased Activity Tolerance Decreased Strength Stair Climbing Assessment Comments Stair Climbing Comments not tested PT-Balance Assessment Sitting Balance and Reactions Static Sitting Balance Ability Normal Dynamic Sitting Balance Ability Good Standing Balance and Reactions Static Standing Balance Ability Good Dynamic Standing Balance Ability Fair Device Used FWW Orientation Orientation/Cognition Level of Alertness Alert Orientation Name Age Birthday Month Date Year Day of Week Place Situation Language Function Ability No Deficits Noted Safety Awareness Understands Safety Issues Memory Description No Deficits Noted Gross Range of Motion Upper Extremity ROM Assessment Within Functional Limits Lower Extremity ROM Assessment Within Functional Limits Strength Comments Strength Comments not formally assessed but functionally intact however with poor endurance/activity tolerance Physical Therapy Treatment Education Education Provided Safety PT Summary Assessment and Plan Potential Rehabilitation Potential Good Status of Condition at Evaluation Stable Summary Impairments Strength Bed Mobility Transfers Gait Activity Tolerance Progress Towards Goals Progressing Toward Goals Assessment Summary Pt presents after several days of GI bleed and is now weak and deconditioned. Pt requiring min A for mobility where normally she is ind to mod ind for mobility. Pt is currently below reported functional baseline but has potential for functional improvement. Pt will benefit from transitioning to SNF rehab for ongoing skilled therapies prior to returning home. Pt in agreement with this plan. Goals Bed Mobility Goal Independent Transfer Goal Independent Gait Goal Independent Gait Distance 150 Days to Meet Goals 3 Frequency of Treatment Frequency Of Treatment Once a Day Treatment Plan Physical Therapy Treatment Plan Bed Mobility Training Transfer Training Gait Training Therapeutic Exercise Balance Retraining Discharge Planning Recommendations To Nursing Amount of Assist Needed 1 Person Assist Discharge Recommendations PT Discharge Recommendations SNF Rehab
--- NOTE | 2017-11-13 14:51 | OT.IP.EVAL ---
Current Diagnoses Melena (11/09/17) Surgery Performed Operation Date: 11/09/17 15:00 Actual Procedures p Esophagogastroduodenoscopy with eppinephrine ingection - Shon Austin MD Past Medical History (Last Reviewed 11/09/17 @ 13:27 by Shon Austin MD) Hypothyroidism (Acute) Glaucoma (Acute) GI bleed (Acute) Anxiety (Acute) Colon polyp (Acute) History of open sigmoidectomy (Acute) Insomnia (Acute) Lumbar spinal stenosis (Acute) Surgical History (Last Reviewed 11/09/17 @ 13:28 by Shon Austin MD) Colostomy status (Acute) History of repair of hiatal hernia (Acute) S/P exploratory laparotomy (Acute) Occupational Therapy Inpatient Evaluation/Re-Eval M1 PT/OT-IP Prior Functional Status Start: 11/13/17 12:44 Freq: NEEDED Status: Active Protocol: Document 11/13/17 14:51 PJM (Rec: 11/14/17 07:53 PJM [id number]) Medical Review Prior Functional Status Medical History Reviewed Yes Diet/Fluid Consistency Regular Communication WNL, Turkmen is pt's second language, first language is Citizen Of [place] Mobility and Gait Pt independent at baseline Activities of Daily Living and IADL's Pt normally independent with all self care, IADLS except hires assistance with heavier housework and yard work. Prior Functional Level (Other details) Pt does not drive. She relies on friends to take her to grocery store and MD appts. Social History Household Members none Living Arrangements House Number of Floors (Floors) One Floor Number of Stairs To Enter/Railing? 2, no rails Home Environment Standard Height Toilet Walk in Shower Home Equipment Shower Seat without Backrest Grab Bars In Shower Employment Status Retired Additional Social History Comment Pt has no local family; son lives in [place]. M2 OT-IP Current Condition Start: 11/14/17 07:34 Freq: Status: Active Protocol: Document 11/13/17 14:51 PJM (Rec: 11/14/17 07:53 PJM [id number]) Occupational Therapy Current Condition Current Condition Evaluation Date 11/01/17 Treatment Diagnosis decreased self care, IADL skills due to recurrent GI bleed Diagnosis Onset Date 11/09/17 M3 OT- IP Subjective and Pain Start: 11/14/17 07:34 Freq: Status: Active Protocol: Document 11/13/17 14:51 PJM (Rec: 11/14/17 07:53 PJM [id number]) OT- Subjective Occupational Therapy Visit Type Type Initial Evaluation Visit Start Time 14:30 Visit Stop Time 14:51 Total Visit Minutes 21 Occupational Therapy Visit Comments Patient Comments 'I don't think I have enough energy to manage at home alone . Patient/Caregiver Goals to get stronger and return to independent living in her own home OT Pain Assessment Pain When Pain Assessed After Treatment Pain Present Pain Present Denied Pain M4 OT- IP ADL's Start: 11/14/17 07:34 Freq: Status: Active Protocol: Document 11/13/17 14:51 PJM (Rec: 11/14/17 07:53 PJM [id number]) OT [id number] General Evaluation Self-Feeding Ability Independent OT ADL-Grooming General Evaluation Grooming Ability Standby Assistance Comments OT Grooming Comments stands at sink OT ADL-Oral Care General Eval Oral Care Ability Standby Assistance Comments Oral Care Comments stands at sink OT ADL-Dressing General Eval Upper Body Dressing Ability Standby Assistance Lower Body Dressing Ability Standby Assistance Areas Needing Assistance Retrieving/Set-up of Clothing OT ADL-Toileting General Evaluation Toileting Ability Standby Assistance OT ADL-Bathing Comments OT Bathing Comments to be assessed; pt has small stool in very small small shower stall at home M5 OT- IP IADL's Start: 11/14/17 07:34 Freq: Status: Active Protocol: Document 11/13/17 14:51 PJM (Rec: 11/14/17 07:53 PJM [id number]) OT-Instrumental Activities of Daily Living Deficits IADL Deficits Identified Deficits Home Safety Awareness Awareness of Need for Assistance at Home Good Awareness Ability to Problem Solve Emergency Able to Problem Solve Situations Home Safety Comments Pt has [employer] call system at home Medication Management Medication Management No Deficits Identified Money Management Money Management No Deficits Identified Meal Preparation Meal Preparation Comments Pt lacks endurance needed for grocery shopping and meal preparation. 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 Driving Driving Comments Pt does not drive M6 OT- IP Functional Cognition Start: 11/14/17 07:34 Freq: Status: Active Protocol: Document 11/13/17 14:51 PJM (Rec: 11/14/17 07:53 PJM [id number]) Cognitive Factors Limiting Selfcare Function Cognitive Ability Level of Alertness Alert Patient Orientation Name Age Birthday Month Date Year Day of Week Place Situation Attention Span Ability Capable of Focused Attention Capable of Sustained Attention Ability to Follow Commands Able to Follow One Step Commands Memory Description No Deficits Noted Safety Awareness No Deficits Noted Problem Solving Ability No deficits Noted Executive Function Ability No Deficits Noted Abstract Thinking Ability No Deficits Noted Cognitive Comments Cognitive Assessment Comments Appears WFL OT- Vision and Hearing OT- Hearing Assessment OT- Hearing Assessment WFL OT- Vision Assessment Visual Acuity WFL Glasses For Reading Vision Assessment Comments Pt denies any recent vision changes. M7 OT- IP Mobility and Balance Start: 11/14/17 07:34 Freq: Status: Active Protocol: Document 11/13/17 14:51 PJM (Rec: 11/14/17 07:53 PJM [id number]) OT- Bed Mobility Assessment Rolling Type of Rolling Roll to Left Level of Assistance Standby Assistance Supine to Sit Supine to Sit Assist Standby Assistance Sit to Supine Sit to Supine Assist Standby Assistance Scooting Scooting to Edge of Bed Standby Assistance OT-Transfer Assessment Sit to and From Stand Sit to and from Stand Contact Guard Assistance Transfers Transfer Ability Contact Guard Assistance Technique Transfer Destination Bed Chair Devices Transfer Assistive Devices None OT- Gait Assessment Comments Gait Ability Comments See P.T. evaluation OT- Balance Assessment Sitting Balance and Reactions Static Sitting Balance Ability Good Dynamic Sitting Balance Ability Good Standing Balance and Reactions Static Standing Balance Ability Good Dynamic Standing Balance Ability Fair M8 OT- IP Objective Assessments Start: 11/14/17 07:34 Freq: Status: Active Protocol: Document 11/13/17 14:51 PJM (Rec: 11/14/17 07:53 PJM [id number]) OT Gross Range of Motion Upper Extremity Range of Motion Assessment Within Functional Limits OT Strength Upper Extremity Strength Assessment Within Functional Limits Comments Strength Comments WFL for self care, but fatigues easily OT- Coordination Assessment Comments Coordination Comments WFL BUE OT-Muscle Tone Assessment Muscle Tone WNL Yes OT Sensation Assessment Comments Summary Comments Pt denies sensory deficits in BUE's Edema Edema Absent M9 OT- IP Assessment and Plan Start: 11/14/17 07:34 Freq: Status: Active Protocol: Document 11/13/17 14:51 PJM (Rec: 11/14/17 07:53 PJM [id number]) OT Summary Assessment and Plan Potential Rehabilitation Potential Excellent Analytic Complexity at Evaluation Low Summary OT Impairments Strength Balance Functional Mobility Toileting Bathing Toilet Transfers Shower Transfers Assessment Summary Low complexity OT assessment with emphasis on self care skills. Pt's primary performance deficit is in decreased activity tolerance from multiple recent recurrent GI bleeds. This limits her independence in higher level self care tasks such as showering and IADLS such as grocery shopping, meal prep, laundry. Pt lives alone with no local family and needs to be completely independent to return home alone alone. Recommend short SNF stay to increase endurance and activity tolerance in all self care, functional mobility and IADL skills utilizing energy conservation/pacing techniques . Goals Grooming Goal Independent Dressing Goal Independent Toileting Goal Independent Bathing Goal Independent Toilet Transfer Goal Independent Patient/Caregiver Education Goal Demonstrate Energy Conservation and Pacing Days to Meet Goals 3 Frequency of Treatment Frequency Of Treatment Once a Day Treatment Plan OT Treatment Plan ADL Training IADL Training Other Treatment Recommendations and Next Education re: energy Treatment Focus conservation/pacing techniques . Discharge Recommendations OT Discharge Recommendations SNF Rehab
[2017-11-13] MEDS: LORazepam 0.5 MG TABLET PO (20:57)
[2017-11-13] MEDS: ESCITALOPRAM 10 MG TABLET 20 MG PO (20:58)
[2017-11-13] MEDS: LATANOPROST 0.005% OPHTH 2.5 ML 1 DROPS EYE-BOTH (20:59)
--- NOTE | 2017-11-13 21:24 | PC.NURSE ---
Debbi shift note: BM x 1, black soft small stool. Remain asymptomatic, no dizziness or SOB. VSS. Tolerating regular diet. No abdominal pain or discomfort.
[2017-11-14 00:10] VITALS: BP 111/74; PULSE 73; RESP 16; TEMP 36.6; O2SAT 98
[2017-11-14 05:17] LABS: Add Manual Diff / Slide Review NO; Basophils Percent Auto 2.5 % (0-2); Eosinophils Percent Auto 7.4 % (2-4); Hematocrit 28.1 % (36-46); Hemoglobin 9.6 g/dL (12.0-16.0); Lymphocytes Percent Auto 24.3 % (25-40); Mean Corpuscular Hemoglobin 31.8 PG (26-34); Mean Corpuscular Volume 93.4 fL (80-100); Monocytes Percent Auto 13.9 % (3-14); Neutrophils Absolute Auto 1900 /uL (3000-5900); Neutrophils Percent Auto 51.9 % (50-75); Platelet Count 199 X10^3/uL (150-400); Red Blood Cell Count 3.01 X10^6/uL (4.0-5.2); Red Cell Distribution Width 18.1 % (11.6-14.8); White Blood Cell Count 3.7 X10^3/uL (4.5-11.0)
[2017-11-14 05:36] VITALS: BP 108/66; PULSE 62; RESP 16; TEMP 36.7; O2SAT 99
[2017-11-14] MEDS: PANTOPRAZOLE 40 MG TABLET PO (06:05)
[2017-11-14] MEDS: LEVOTHYROXINE 50 MCG TABLET PO (06:05)
[2017-11-14 08:22] VITALS: BP 97/55; PULSE 76; RESP 16; TEMP 36.6; O2SAT 99
[2017-11-14] MEDS: GABAPENTIN 100 MG CAPSULE 200 MG PO (09:15)
[2017-11-14] MEDS: SENNOSIDES 8.6 MG TABLET PO (09:16)
[2017-11-14] MEDS: HYDROCODONE/ACET 5/325 TABLET 2 TAB PO (09:16)
--- NOTE | 2017-11-14 10:46 | PM.DS.1 ---
History of Present Illness Chief complaint: Vomiting blood Discharge Providers Date of admission: 11/09/17 06:41 Primary care physician: Kennedi Mora MD Consults: 11/13/17 11:58 Consult to Occupational Therapy Evaluate & Treat Comment: eval for snf' Physician Instructions: Evaluate and treat Consult to Physical Therapy Evaluate & Treat Comment: weak snf recommendation Physician Instructions: Evaluate and Treat Discharge provider: Nahum Mir MD Summary Discharge Diagnosis: One. Acute gastrointestinal bleeding due to recurrent Henrique gastric ulcers 2. Acute blood loss anemia secondary to 1. 3. Lumbar spinal stenosis with chronic back pain and opioid habituation . Hypothyroid 5. Depression Hospital Course: Patient admitted to the hospital with hematemesis and melena. She had initially diagnosed with gastric ulcer back on October 31 and this was rude a recurrence of these problems she was readmitted on and had a endoscopy on 11/09/2017 that showed recurrent gastric ulcer she was treated with Protonix she had 2 units of packed red cells for hematocrit stabilized at 28 she has had no more symptoms of melena or hematemesis. Patient is still very weak and [facility] and [facility] today. She will be placed on iron continue Zofran as needed for nausea continue the Protonix long-term for the healing of the ulcers. She is to avoid anti-inflammatories Status at Discharge Functional status at discharge: uses cane/walker Overall status at discharge: patient is not back to baseline Time Spent with Patient Greater than 30 minutes Exam Vital Signs (past 8 hours): - 11/14/17 05:36 11/14/17 08:22 Temperature 98.0 F 97.9 F Pulse Rate 62 76 Respiratory Rate 16 16 Blood Pressure 108/66 97/55 L Pulse Oximetry 99 99 Oxygen Delivery Method Room Air Oxygen Flow Rate 0 Narrative Exam Narrative: Pleasant elderly female resting quietly HEENT exam unremarkable Neck is supple Lungs Clear to auscultation Heart regular rhythm Abdomen soft nontender bowel sounds present Neuro exam awake alert speech normal no focal deficits Skin warm and dry Lower extremities no Objective Labs Result Diagrams: 11/14/17 04:58 11/10/17 04:38 Labs: Laboratory Results - last 24 hr 11/14/17 04:58 WBC 3.7 L RBC 3.01 L Hgb 9.6 L Hct 28.1 L MCV 93.4 MCH 31.8 MCHC 34.0 RDW 18.1 H Plt Count 199 Neut % (Auto) 51.9 Lymph % (Auto) 24.3 L [place] % (Auto) 13.9 Eos % (Auto) 7.4 H Baso % (Auto) 2.5 H Neut # (Auto) 1900 L Discharge Plan Discharge Plan Patient Disposition: SNF Transfer to: [facility] Transportation: Facility vehicle I certify the postop hospital senior care care is medically necessary on a continuing basis for any conditions for which he/ she received care during this hospitalization.: Yes The receiving facility has agreed to accept transfer and provide medical treatment.: Yes Discharge Health Status Multidrug resistant organism: No MDRO MDRO Verified by culture: Yes Date verified: 10/30/17 Precautions: [place] Provider Discharge Instructions Diet: Diet as Tolerated Liquid consistency: Normal/Thin Food texture: Regular [facility] Rehab type: Physical therapy Discharge Data Primary Care Provider: Kennedi Mora Attending Provider: Kennedi Mora Admit Date/Time: 11/09/17 06:41 Quality VTE Deep Vein Thrombosis/Pulmonary Embolism Present on Admission: No
--- NOTE | 2017-11-14 10:50 | P.DS_ITS ---
History of Present Illness Chief complaint: Vomiting blood Discharge Providers Date of admission: 11/09/17 06:41 Primary care physician: Kennedi Mora MD Consults: 11/13/17 11:58 Consult to Occupational Therapy Evaluate & Treat Comment: eval for snf' Physician Instructions: Evaluate and treat Consult to Physical Therapy Evaluate & Treat Comment: weak snf recommendation Physician Instructions: Evaluate and Treat Discharge provider: Nahum Mir MD Summary Discharge Diagnosis: One. Acute gastrointestinal bleeding due to recurrent Henrique gastric ulcers 2. Acute blood loss anemia secondary to 1. 3. Lumbar spinal stenosis with chronic back pain and opioid habituation . Hypothyroid 5. Depression Hospital Course: Patient admitted to the hospital with hematemesis and melena. She had initially diagnosed with gastric ulcer back on October 31 and this was rude a recurrence of these problems she was readmitted on and had a endoscopy on 11/09/2017 that showed recurrent gastric ulcer she was treated with Protonix she had 2 units of packed red cells for hematocrit stabilized at 28 she has had no more symptoms of melena or hematemesis. Patient is still very weak and requires physical therapy at snf and should be discharged to the snf today. She will be placed on iron continue Zofran as needed for nausea continue the Protonix long-term for the healing of the ulcers. She is to avoid anti-inflammatories Status at Discharge Functional status at discharge: uses cane/walker Overall status at discharge: patient is not back to baseline Time Spent with Patient Greater than 30 minutes Exam Vital Signs (past 8 hours): - 11/14/17 05:36 11/14/17 08:22 Temperature 98.0 F 97.9 F Pulse Rate 62 76 Respiratory Rate 16 16 Blood Pressure 108/66 97/55 L Pulse Oximetry 99 99 Oxygen Delivery Method Room Air Oxygen Flow Rate 0 Narrative Exam Narrative: Pleasant elderly female resting quietly HEENT exam unremarkable Neck is supple Lungs Clear to auscultation Heart regular rhythm Abdomen soft nontender bowel sounds present Neuro exam awake alert speech normal no focal deficits Skin warm and dry Lower extremities no Objective Labs Result Diagrams: 11/14/17 04:58 11/10/17 04:38 Labs: Laboratory Results - last 24 hr 11/14/17 04:58 WBC 3.7 L RBC 3.01 L Hgb 9.6 L Hct 28.1 L MCV 93.4 MCH 31.8 MCHC 34.0 RDW 18.1 H Plt Count 199 Neut % (Auto) 51.9 Lymph % (Auto) 24.3 L [place] % (Auto) 13.9 Eos % (Auto) 7.4 H Baso % (Auto) 2.5 H Neut # (Auto) 1900 L Discharge Plan Discharge Plan Patient Disposition: SNF Transfer to: [facility] Transportation: Facility vehicle I certify the [facility] care is medically necessary on a continuing basis for any conditions for which he/ she received care during this hospitalization.: Yes The receiving facility has agreed to accept transfer and provide medical treatment.: Yes Discharge Health Status Multidrug resistant organism: No MDRO MDRO Verified by culture: Yes Date verified: 10/30/17 Precautions: [place] Provider Discharge Instructions Diet: Diet as Tolerated Liquid consistency: Normal/Thin Food texture: Regular [facility] Rehab type: Physical therapy Discharge Data Primary Care Provider: Kennedi Mroa Attending Provider: Kennedi Mora Admit Date/Time: 11/09/17 06:41 Quality VTE Deep Vein Thrombosis/Pulmonary Embolism Present on Admission: No
--- NOTE | 2017-11-14 13:40 | PC.NURSE ---
Am shift Pt continues to improve with mobility, H/H remains stable. To D/c to [facility] later today.
--- NOTE | 2017-11-14 14:27 | CM.DPC ---
DCP Cont: Patient is to be discharged today. Called and spoke to Macy at [facility], to ensure that they have a bed available, which they do. P: Patient will be picked up this afternoon by [facility] staff. Diana Alcantar RN/Pet Resort Concierge
== END 2017-11-14 14:40 | DRG 378 ==
LOC: ED 06:41 → ICU 06:42 → AC 11-12 02:16
PROVIDERS: Emergency Medicine; Internal Medicine; Specialist; Admitting Provider Internal Medicine; Emergency Provider Emergency Medicine; PCP Internal Medicine; Visit Provider Internal Medicine
PROC: 0DJ08ZZ Inspection of Upper Intestinal Tract, Via Natural or Artificial Opening Endoscopic (ICD-10-PCS; CPT 43235; principal; 2017-11-09 15:00)
DX: K25.4 Chronic or unspecified gastric ulcer with hemorrhage (principal); D62 Acute posthemorrhagic anemia; F11.20 Opioid dependence, uncomplicated; E03.9 Hypothyroidism, unspecified; H40.9 Unspecified glaucoma; F41.9 Anxiety disorder, unspecified; G89.29 Other chronic pain; M54.5 Low back pain
CPT/HCPCS: 36415; 36430; 43243; 80048; 80053; 85014; 85018; 85025; 85610; 85730; 86850; 86900; 86901; 87797; 96374; 96375; 97161; 97165; 99152; 99222; 99283; 99285; P9016; C9113; J0171; J2250; J2405; J3010

== ENCOUNTER → 2017-11-16 09:42 | Outpatient (CLI) | payer MEDICARE, OTHER, SELFPAY ==
[2017-11-09 08:10] VITALS: BMI 21.2
--- NOTE | 2017-11-16 | DI.MRI.S_ITS ---
PROCEDURE: MR LUMBAR SPINE WO CON INDICATIONS: Chronic low back pain TECHNIQUE: Noncontrast sagittal T1 spin echo and T2 fast echo, sagittal STIR, axial T1 and T2 fast spin echo through the lumbar spine. In cases with scoliosis, additional coronal T2 fast spin echo may be performed. COMPARISON: [facility], CR, SPINE LUMB 2 OR 3VW, 10/16/2014, 10:44. [facility], RG, XR L-SPINE 4-6V, 08/10/1999, 7:51. [facility], MR, L-SPINE WITHOUT CONTRAST, 09/16/2014, 9:41. [facility], MR, L-SPINE WITHOUT CONTRAST, 07/22/2016, 10:33. FINDINGS: Image quality: Excellent. Alignment and Curvature: Prominent S1-S2 disc. There is grade 1 retrolisthesis of L1-L2 and L2-L3, and grade 1 anterolisthesis of L4 on L5. Bone Marrow: M degenerative endplate signal changes are present No acute vertebral body compression fractures. Spinal Cord: Conus medullaris terminates at the L1-L2 level. Visualized cord demonstrates normal signal and size. Paraspinous Soft Tissues: No paravertebral masses. T12-L1: Severe loss of disc height and disc desiccation. There is broad posterior disc bulge and disc osteophyte complex. Mild bilateral facet arthropathy and hypertrophy of ligamentum flavum. The central canal is mildly narrowed. Mild bilateral foraminal stenosis. There is no significant change from the last exam. L1-L2: Severe loss of disc height and disc desiccation. There is broad posterior disc bulge and disc osteophyte complex. Mild bilateral facet arthropathy and hypertrophy of ligamentum flavum. The central canal is mildly narrowed. Moderate bilateral foraminal stenosis. There is no significant change from the last exam. L2-L3: Severe loss of disc height and disc desiccation. There is broad posterior disc bulge and large posterior and right lateral disc osteophyte complex. Moderate bilateral facet arthropathy and hypertrophy of ligamentum flavum. The central canal is mildly narrowed, unchanged. Severe right and moderate left foraminal stenosis, slightly increased. L3-L4: Mild loss of disc height and disc desiccation. There is broad posterior disc bulge and osteophyte complex. Moderate right and mild left facet arthropathy and bilateral moderate hypertrophy of ligamentum flavum. The central canal is mildly narrowed. Moderate left and small right foraminal stenosis, unchanged. L4-L5: Moderate loss of disc height and disc desiccation. There is broad posterior disc bulge and disc osteophyte complex. Severe bilateral facet arthropathy and moderate hypertrophy of ligamentum flavum. The central canal is [id number] narrowed. Mild bilateral foraminal stenosis. There is no significant change. L5-S1: Severe loss of disc height and disc desiccation. There is broad posterior disc bulge and disc osteophyte complex. Mild bilateral facet arthropathy and moderate hypertrophy of ligamentum flavum. The central canal is mildly narrowed. Severe bilateral foraminal stenosis. There is no significant change. IMPRESSION: 1. Mild progression of multilevel degenerative disc disease and facet arthropathy as described. 2. Multilevel central canal stenosis, moderate to severe at L4-L5. 3. Multilevel foraminal stenoses, severe at L2-L3 on the right and L5-S1 bilaterally, moderate at L1-L2 bilaterally, L2-L3 on the left, and L3-L4 on the left,. Dictated by: Steve Lara M.D. on 11/16/2017 at 15:55 Approved by: Steve Lara M.D. on 11/16/2017 at 16:14
== END ==
PROVIDERS: PCP Internal Medicine; Visit Provider Internal Medicine
DX: M51.36 Other intervertebral disc degeneration, lumbar region (principal); M48.07 Spinal stenosis, lumbosacral region; M48.061 Spinal stenosis, lumbar region without neurogenic claudication; M47.896 Other spondylosis, lumbar region; M54.5 Low back pain; G89.29 Other chronic pain
CPT/HCPCS: 72148

== ENCOUNTER → 2017-11-20 07:41 | Outpatient (REF) | payer SELFPAY ==
[2017-11-09 08:10] VITALS: BMI 21.2
[2017-11-20 08:43] LABS: Add Manual Diff / Slide Review NO; Basophils Percent Auto 3.2 % (0-2); Eosinophils Percent Auto 6.3 % (2-4); Hematocrit 27.7 % (36-46); Hemoglobin 9.3 g/dL (12.0-16.0); Lymphocytes Percent Auto 36.2 % (25-40); Mean Corpuscular HGB Conc 33.3 % (30-36); Mean Corpuscular Hemoglobin 31.1 PG (26-34); Mean Corpuscular Volume 93.2 fL (80-100); Monocytes Percent Auto 15.9 % (3-14); Neutrophils Absolute Auto 1100 /uL (3000-5900); Neutrophils Percent Auto 38.4 % (50-75); Platelet Count 217 X10^3/uL (150-400); Red Blood Cell Count 2.98 X10^6/uL (4.0-5.2); Red Cell Distribution Width 17.6 % (11.6-14.8)
[2017-11-20 09:02] LABS: BUN Creatinine Ratio 28.3 (6-22); Blood Urea Nitrogen 17 mg/dL (7-17); Calcium 8.5 mg/dL (8.4-10.2); Carbon Dioxide 31 mmol/L (22-32); Chloride 102 mmol/L (98-107); Estimated Glomerular Filt Rate > 60.0 mL/min (>60); Glucose 84 mg/dL (80-110); HEMOLYSIS < 15 (0-50); Potassium 4.4 mmol/L (3.4-5.1); Sodium 140 mmol/L (137-145)
== END ==
LOC: LAB 07:41
PROVIDERS: PCP Internal Medicine; Visit Provider Internal Medicine
DX: D64.9 Anemia, unspecified (principal); K92.2 Gastrointestinal hemorrhage, unspecified
CPT/HCPCS: 36415; 80048; 85025

== ENCOUNTER → 2017-12-05 09:55 | Outpatient (CLI) | payer MEDICARE, OTHER, SELFPAY ==
[2017-11-09 08:10] VITALS: BMI 21.2
--- NOTE | 2017-12-05 | DI.RAD.S_ITS ---
PROCEDURE: XR CHEST 2V INDICATIONS: COUGH TECHNIQUE: 2 views of the chest were acquired. COMPARISON: [facility], CR, XR CHEST 1V, 10/30/2017, 18:41. FINDINGS: Surgical changes and devices: None. Lungs and pleura: No pleural effusions or pneumothorax. Increased bronchovascular markings in bilateral hilar region are seen very mild bronchial wall thickening suggestive of mild reactive airway disease. No focal infiltrate. Mediastinum: Mediastinal contours are normal. Heart size is mildly enlarged. Bones and chest wall: No suspicious bony abnormalities. Soft tissues appear unremarkable. IMPRESSION: Suggestion of mild reactive airway disease such as bronchitis or asthma. No focal infiltrate. Dictated by: Lauro Sanchez M.D. on 12/05/2017 at 10:57 Approved by: Lauro Sanchez M.D. on 12/05/2017 at 10:58
== END ==
PROVIDERS: PCP Internal Medicine; Visit Provider Internal Medicine
DX: R05 Cough (principal)
CPT/HCPCS: 71046

== ENCOUNTER → 2018-08-09 10:30 | Outpatient (CLI) | payer MEDICARE, OTHER, SELFPAY ==
[2017-11-09 08:10] VITALS: BMI 21.2
[2018-08-09 11:14] LABS: Add Manual Diff / Slide Review NO; Basophils Absolute Auto 100 /uL (0-100); Basophils Percent Auto 1.3 % (0-2); Eosinophils Absolute Auto 100 /uL (0-450); Eosinophils Percent Auto 3.1 % (2-4); Hematocrit 39.3 % (36-46); Hemoglobin 13.1 g/dL (12.0-16.0); Lymphocytes Absolute Auto 1100 /uL (1100-4500); Lymphocytes Percent Auto 22.6 % (25-40); Mean Corpuscular HGB Conc 33.2 % (30-36); Mean Corpuscular Hemoglobin 31.2 PG (26-34); Mean Corpuscular Volume 93.8 fL (80-100); Monocytes Absolute Auto 500 /uL (0-900); Monocytes Percent Auto 9.8 % (3-14); Neutrophils Absolute Auto 3000 /uL (1500-7000); Neutrophils Percent Auto 63.2 % (50-75); Platelet Count 213 X10^3/uL (150-400); Red Cell Distribution Width 13.7 % (11.6-14.8); White Blood Cell Count 4.7 X10^3/uL (4.5-11.0)
[2018-08-09 11:26] LABS: BUN Creatinine Ratio 27.1 (6-22); Blood Urea Nitrogen 19 mg/dL (7-17); Calcium 9.2 mg/dL (8.4-10.2); Carbon Dioxide 25 mmol/L (22-32); Chloride 104 mmol/L (98-107); Estimated Glomerular Filt Rate > 60.0 mL/min (>60); Glucose 106 mg/dL (80-110); HEMOLYSIS < 15 (0-50); Potassium 4.1 mmol/L (3.4-5.1); Sodium 139 mmol/L (137-145)
[2018-08-09 11:52] LABS: HEMOLYSIS < 15 (0-50); Iron 125 ug/dL (37-170)
[2018-08-09 11:59] LABS: Ferritin 24.2 ng/mL (11.1-264)
[2018-08-09 12:02] LABS: Percent Iron Saturation 33 % (15-50); Total Iron Binding Capacity 378 ug/dL (265-497); Transferrin 297 mg/dL (206-381)
[2018-08-09 12:22] LABS: TSH w/ Reflex to FT4 3.07 uIU/mL (0.47-4.68)
== END ==
PROVIDERS: PCP Internal Medicine; Visit Provider Internal Medicine
DX: D50.9 Iron deficiency anemia, unspecified (principal); R73.01 Impaired fasting glucose; E03.9 Hypothyroidism, unspecified
CPT/HCPCS: 36415; 80048; 82728; 83540; 83550; 84443; 85025